=== PATIENT | male | born 1960 | race Caucasian/White ===

== ENCOUNTER 2021-04-07 09:34 | Outpatient (REF) | payer MEDICAID, SELFPAY ==
[2021-04-07 10:18] LABS: COVID-19 Test Negative (Negative); IDNOW Serial# 16C4AD1C
== END 2021-04-07 09:35 | disposition home or self-care (01) ==
LOC: HO.LAB 09:34
PROVIDERS: Visit Provider Internal Medicine
DX: Z20.822 Contact with and (suspected) exposure to COVID-19 (principal)
CPT/HCPCS: 36415; 87635; C9803

== ENCOUNTER 2021-07-30 08:46 | Outpatient (REF) | payer MEDICAID, SELFPAY ==
--- NOTE | ~2021-07-30 | CT_ITS ---
EXAMINATION: CT CHEST SCREENING CLINICAL INFORMATION: Current smoker. 50 pack-year history. COMPARISON: Previous chest CT scans most recent November 2019 TECHNIQUE: Multidetector volumetric CT imaging of the chest is performed without contrast using low dose technique. Additional 2D coronal and sagittal reformatted images and axial 3D maximum intensity projection (MIP) images are generated on the CT workstation. This CT examination was performed using dose optimization techniques as appropriate, variously including the following: *Automated exposure control *Adjustment of mA and/or kV according to patient size (this includes techniques or standardized protocols for targeted exams where dose is matched to indication/reason for exam; i.e. extremities or head) *Use of iterative reconstruction technique DLP: 76 mGy-cm FINDINGS: LUNGS: There is evidence of mild emphysema. The small pulmonary nodules are stable. Largest pulmonary nodule is a 4 mm peripheral or subpleural nodule along the minor fissure axial image 302 series 5. No new pulmonary nodule is seen. No endobronchial or endotracheal lesion is seen. MEDIASTINUM: The mediastinum is normal. There are small mediastinal lymph nodes that are stable. PLEURA: There is no pleural effusion. No pleural mass or thickening. AXILLA: No lymphadenopathy. UPPER ABDOMEN: Unremarkable OSSEOUS STRUCTURES: There are degenerative changes of the spine. CT/CT lung screening IMPRESSION: Mild emphysema. Stable small pulmonary nodules. ASSESSMENT: Lung-RADS category 2: Benign RECOMMENDATION: Annual low-dose chest CT follow-up recommended.
== END 2021-07-30 08:47 | disposition home or self-care (01) ==
LOC: HO.CT 08:46
PROVIDERS: PCP Family Medicine; Visit Provider Physician Assistant Medical
DX: R91.8 Other nonspecific abnormal finding of lung field (principal); F17.210 Nicotine dependence, cigarettes, uncomplicated
CPT/HCPCS: 71271

== ENCOUNTER 2021-12-25 08:32 | Outpatient (REF) | payer MEDICAID, SELFPAY ==
--- NOTE | ~2021-12-25 | XR_ITS ---
EXAMINATION: XR KNEE, RIGHT CLINICAL INFORMATION: Right knee pain. COMPARISON: None. TECHNIQUE: AP and lateral views of the right knee. FINDINGS: No acute fracture or dislocation. Tricompartmental joint space narrowing with patellofemoral compartment subchondral cystic change and tricompartmental marginal osteophytes. Anterior ossified loose body measuring 1.0 cm adjacent to the tibial plateau. Small joint effusion. XR/XR knee RT 2V IMPRESSION: Moderate tricompartmental osteoarthritis. Small joint effusion with an anterior loose body measuring up to 1.0 cm.
== END 2021-12-25 08:33 | disposition home or self-care (01) ==
LOC: HO.XRAY 08:32
PROVIDERS: Visit Provider Family Medicine
DX: M25.561 Pain in right knee (principal)
CPT/HCPCS: 73560

== ENCOUNTER 2022-08-14 09:31 | Outpatient (REF) | payer MEDICAID, SELFPAY ==
--- NOTE | ~2022-08-14 | CT_ITS ---
EXAMINATION: CT CHEST SCREENING CLINICAL INFORMATION: Nicotine dependence. 7-uguoq-vkx-day smoker for 50 years. COMPARISON: CT lung screening 07/30/2021 and 12/03/2019. TECHNIQUE: Multidetector volumetric CT imaging of the chest is performed without contrast using low dose technique. Additional 2D coronal and sagittal reformatted images and axial 3D maximum intensity projection (MIP) images are generated on the CT workstation. This CT examination was performed using dose optimization techniques as appropriate, variously including the following: *Automated exposure control *Adjustment of mA and/or kV according to patient size (this includes techniques or standardized protocols for targeted exams where dose is matched to indication/reason for exam; i.e. extremities or head) *Use of iterative reconstruction technique DLP: 61 mGy-cm. FINDINGS: LUNGS: The lungs are well expanded without any acute pneumonic consolidation. There are 1 diastolic calcified nodules scattered throughout the lungs. The largest calcified 4 mm nodule right upper lobe, axial image 247/5, stable. The largest noncalcified 4 mm nodule along the right major fissure axial image 313/5, stable. There are no new pulmonary nodules. MEDIASTINUM: The heart size and the great vessels are normal caliber. There are small shotty lymph nodes. Thyroid lobes are symmetrical. The central bronchial trachea are widely patent. CORONARY ARTERY CALCIFICATION: Mild coronary artery calcifications are present. PLEURA: There is no pleural effusion. No pleural mass or thickening. AXILLA: No lymphadenopathy. UPPER ABDOMEN: Visualized liver, spleen, pancreas and bilateral adrenal glands unremarkable. OSSEOUS STRUCTURES: No aggressive lytic or sclerotic process seen. There is mild ventral spondylosis mid dorsal spine. CT/CT lung screening IMPRESSION: 1. Stable calcified and noncalcified pulmonary nodules. No new nodules seen. 2. Low-dose annual CT chest. ASSESSMENT: Lung-RADS category 2: Benign. RECOMMENDATION: Low-dose annual CT chest.
== END 2022-08-14 09:32 | disposition home or self-care (01) ==
LOC: HO.CT 09:31
PROVIDERS: PCP Family Medicine; Visit Provider Physician Assistant Medical
DX: Z12.2 Encounter for screening for malignant neoplasm of respiratory organs (principal); F17.210 Nicotine dependence, cigarettes, uncomplicated
CPT/HCPCS: 71271

== ENCOUNTER 2022-12-16 12:20 | Outpatient (REF) | payer MEDICAID, SELFPAY ==
[2022-12-16 13:53] LABS: Microalbum/Creatinine Ratio Ur 98.8 ug/mg cr (<30)
[2022-12-18 12:19] LABS: HCV Log PCR <1.18 NOT DETECTED Log IU/mL (NOT DETECTED); HepC Viral Load <15 NOT DETECTED IU/mL (NOT DETECTED)
== END 2022-12-16 12:21 | disposition home or self-care (01) ==
LOC: HO.HHCL 12:20
PROVIDERS: Visit Provider Family Medicine
DX: E11.9 Type 2 diabetes mellitus without complications (principal); R76.8 Other specified abnormal immunological findings in serum
CPT/HCPCS: 36415; 82043; 82570; 87522

== ENCOUNTER 2023-01-10 15:14 | Outpatient (REF) | payer MEDICAID, SELFPAY | END 2023-01-10 15:15 | disposition home or self-care (01) | LOC: HO.US 15:14 | PROVIDERS: PCP Family Medicine; Visit Provider Family Medicine | DX: R22.42 Localized swelling, mass and lump, left lower limb (principal) | CPT/HCPCS: 93971 ==

== ENCOUNTER 2023-04-29 09:10 | Outpatient (REF) | payer MEDICAID, SELFPAY ==
[2023-04-29 13:09] LABS: Alanine Aminotransferase 23 U/L (0-40); Albumin Level 4.4 g/dL (3.5-5.0); Alkaline Phosphatase 117 U/L (39-117); Aspartate Amino Transferase 21 U/L (5-37); Bilirubin Direct 0.3 mg/dL (0.0-0.5); Bilirubin Total 0.8 mg/dL (0.0-1.0); Cholesterol 115 mg/dL (<200); HDL Cholesterol 43 mg/dL (>40); LDL Cholesterol Calculated 58 mg/dL (<100); Total Protein 7.2 g/dL (6.5-8.0); Triglycerides 74 mg/dL (<150)
== END 2023-04-29 09:11 | disposition home or self-care (01) ==
LOC: HO.HHCL 09:10
PROVIDERS: Visit Provider Family Medicine
DX: Z00.00 Encounter for general adult medical examination without abnormal findings (principal)
CPT/HCPCS: 36415; 80061; 80076

== ENCOUNTER 2023-05-15 11:37 | Outpatient (REF) | payer MEDICAID, SELFPAY ==
[2023-05-15 13:18] LABS: MANUAL DIFF FLAG NO
[2023-05-15 13:38] LABS: Basophils Percent Auto 0.5 % (0-2); Eosinophils Absolute Auto 0.1 X10*3/uL (0.0-0.4); Eosinophils Percent Auto 1.3 % (0-4); Hematocrit 43.8 % (42.0-52.0); Hemoglobin 15.1 g/dl (14.0-18.0); Imm Gran Abs Auto 0.02 X10*3/uL (0.00-0.03); Imm Gran Pct Auto 0.2 % (0.0-0.4); Lymphocytes Absolute Auto 2.3 X10*3/uL (1.2-4.9); Lymphocytes Percent Auto 26.3 % (20-40); Mean Corpuscular HGB Conc 34.5 g/dl (31.0-36.0); Mean Corpuscular Hemoglobin 28.6 pg (27.0-33.0); Mean Platelet Volume 11.6 fL (9.4-12.4); Monocytes Absolute Auto 0.5 X10*3/uL (0.1-1.2); Monocytes Percent Auto 5.7 % (2-11); Neutrophils Absolute Auto 5.8 x10*3/uL (2.0-8.3); Platelet Count 221 X10*3/uL (160-400); Red Blood Count 5.28 X10*6/uL (4.60-5.80); Red Cell Distribution Width 12.2 % (11.0-16.0); White Blood Count 8.8 X10*3/uL (4.8-10.8)
[2023-05-15 13:44] LABS: Estimated Average Glucose 355 mg/dL
[2023-05-15 14:01] LABS: Alanine Aminotransferase 24 U/L (0-40); Albumin Level 4.6 g/dL (3.5-5.0); Alkaline Phosphatase 172 U/L (39-117); Anion Gap 16 (12-20); Aspartate Amino Transferase 19 U/L (5-37); Bilirubin Total 0.6 mg/dL (0.0-1.0); Blood Urea Nitrogen 22 mg/dL (9-16); Calcium 10.2 mg/dL (8.4-10.2); Carbon Dioxide 27 mmol/L (22-29); Chloride 93 mmol/L (96-108); Estimated Glomerular Filt Rate 44; Glucose Random 545 mg/dL (60-115); Potassium 5.6 mmol/L (3.3-5.1); Sodium 130 mmol/L (135-145); Total Protein 7.4 g/dL (6.5-8.0)
[2023-05-15 14:06] LABS: PSA,Total (Free>4and<10) 1.33 ng/mL (0.00-4.00)
[2023-05-15 17:42] LABS: CT PCR NOT DETECTED (Not Detect.); NG PCR NOT DETECTED (Not Detect.)
== END 2023-05-15 11:38 | disposition home or self-care (01) ==
LOC: HO.HHCL 11:37
PROVIDERS: Visit Provider Family Medicine
DX: E11.65 Type 2 diabetes mellitus with hyperglycemia (principal); R35.89 Other polyuria
CPT/HCPCS: 0353U; 36415; 80053; 83036; 84153; 85025

== ENCOUNTER 2023-06-11 11:01 | Outpatient (REF) | payer MEDICAID, SELFPAY ==
[2023-06-11 14:22] LABS: Creatinine Urine 52.04 mg/dL; Microalbum/Creatinine Ratio Ur 547.6 ug/mg cr (<30)
[2023-06-11 14:23] LABS: Estimated Average Glucose 301 mg/dL; Hemoglobin A1c % 12.1 % (<6.0)
[2023-06-11 15:06] LABS: Alanine Aminotransferase 24 U/L (0-40); Albumin Level 4.5 g/dL (3.5-5.0); Alkaline Phosphatase 109 U/L (39-117); Anion Gap 10 (12-20); Aspartate Amino Transferase 21 U/L (5-37); Bilirubin Direct 0.2 mg/dL (0.0-0.5); Bilirubin Total 0.4 mg/dL (0.0-1.0); Blood Urea Nitrogen 20 mg/dL (9-16); Calcium 9.6 mg/dL (8.4-10.2); Carbon Dioxide 26 mmol/L (22-29); Chloride 109 mmol/L (96-108); Cholesterol 101 mg/dL (<200); Estimated Glomerular Filt Rate > 60; Glucose Random 132 mg/dL (60-115); HDL Cholesterol 41 mg/dL (>40); LDL Cholesterol Calculated 40 mg/dL (<100); Potassium 4.5 mmol/L (3.3-5.1); Sodium 140 mmol/L (135-145); Triglycerides 102 mg/dL (<150)
[2023-06-11 15:23] LABS: Vitamin D 25-OH Total 36.1 ng/mL (>30)
== END 2023-06-11 11:02 | disposition home or self-care (01) ==
LOC: HO.HHCL 11:01
PROVIDERS: Visit Provider Family Medicine
DX: E11.9 Type 2 diabetes mellitus without complications (principal); R74.8 Abnormal levels of other serum enzymes; Z79.4 Long term (current) use of insulin
CPT/HCPCS: 36415; 80048; 80061; 80076; 82043; 82306; 82570; 83036

== ENCOUNTER 2024-07-20 07:23 | Day surgery (SDC) | payer OTHER, SELFPAY ==
[2024-07-16 12:30] VITALS: BMI 29.4
[2024-07-20 07:53] VITALS: BMI 28.8
[2024-07-20] MEDS: Lactated Ringers 1,000 ML 80 ML IVCONT (07:58)
[2024-07-20 08:07] VITALS: BP 127/57; PULSE 51; RESP 18; TEMP 36.8; O2SAT 99
[2024-07-20 08:08] LABS: Glucose, Whole Blood 108 mg/dL (60-115)
--- NOTE | 2024-07-20 09:42 | MHC.SHP ---
Pre-Procedural Eval Section A - 24 Hr Update-Section A only Date of Service: 07/20/24 The patient is an INPATIENT: No Changes since office visit: No Cold of Flu in the past 2 weeks, No New Medical Problems, No Changes in Medication and No Patient answered all questions The patient has been examined within 24 hours of the surgical procedure. The History & Physical has been completed within 30 days and I have reviewed it.: Yes Section B - Complete if H&P > 30 days Chief Complaint: screening Allergies: Allergies Allergy/AdvReac Type Severity Reaction Status Date / Time No Known Allergies Allergy Verified 07/20/24 08:10 Plan I have reviewed the history and physical and performed a pertinent physical examination on my patient. No changes have occurred unless specified. Time Spent With Patient Time: Total time managing care of this patient today ____ minutes.
[2024-07-20 10:24] VITALS: BP 103/47; PULSE 55; RESP 16; TEMP 36.5; O2SAT 96
[2024-07-20 10:40] VITALS: BP 113/59; PULSE 59; RESP 18; TEMP 36.6; O2SAT 97
--- NOTE | 2024-07-20 10:55 | P.CONAN_ITS ---
HPI - Anesthesia Eval Consult details Narrative: 63 m for colon PMFSH Active Problems Active Problems: All Active Problems (Updated 07/16/24 @ 12:41 by Candie Huston RN) Personal history of nicotine dependence (Acute) Past Medical History Medical History Chronic renal insufficiency Diabetes COPD (chronic obstructive pulmonary disease) MARCOS (obstructive sleep apnea) History of hepatitis C Tubular adenoma of colon (~2019) Personal history of nicotine dependence Atrial fibrillation HTN (hypertension) Family History Family history of problems with anesthesia: No Surgical History Surgical History History of liver biopsy History of nasal surgery History of colonoscopy History of cardiac radiofrequency ablation History of Problems with Anesthesia: No Social History Social History (Updated 07/16/24 @ 12:29 by Candie Hustno RN) Household Members Other:: roommate Are you a primary manager managed care to a significant other at home: No Do you presently have visiting nurse or other home services: No Patient Tobacco Use Status: Former Tobacco user Tobacco use type: Cigarette Cigarettes Per Day: 30 Smoked in Last 30 Days: Yes Patient Interested in Nicotine Replacement: No Have you been hit, kicked, punched, or otherwise hurt by someone within the past year? If so, by whom?: No Are you DNR?: No Advance Directives: No Advance Directives Information Provided: Yes Poor oral hygiene: No Meds Allergies Allergy/AdvReac Type Severity Reaction Status Date / Time No Known Allergies Allergy Verified 07/20/24 08:10 Active Medications: Current Medications Lactated Ringer's (Lr) 1,000 mls @ 80 mls/hr IVCONT .[id number] [facility] Last Admin: 07/20/24 07:58 Dose: 80 mls/hr Home Medications ?Medication ?Instructions ?Recorded ?Confirmed ?Last Taken ?Type amlodipine 5 mg tablet 5 mg PO DAILY 07/16/24 07/16/24 07/20/24 History aspirin 81 mg tablet,delayed 81 mg PO DAILY 07/16/24 07/16/24 Unknown History release atorvastatin 40 mg tablet 40 mg PO BEDTIME 07/16/24 07/16/24 Unknown History empagliflozin 25 mg tablet 25 mg PO DAILY 07/16/24 07/16/24 07/17/24 History (Jardiance) lisinopril 40 mg tablet 40 mg PO DAILY 07/16/24 07/16/24 Unknown History metoprolol succinate 25 mg 25 mg PO DAILY 07/16/24 07/16/24 07/20/24 History tablet,extended release 24 hr Exam Height,Weight and Vital Signs: Height 6 ft 1 in Weight 218 lb 4.122 oz Last Vital Signs Temp 97.9 F 07/20/24 10:40 Pulse 59 07/20/24 10:40 Resp 18 07/20/24 10:40 BP 113/59 L 07/20/24 10:40 Pulse Ox 97 07/20/24 10:40 O2 Del Method Room Air 07/20/24 10:40 Pertinent Lab Results Pertinent Lab Results: Laboratory Tests 07/20/24 08:03 POC Glucose 108 Airway Mallampati Class: II TM Dist: >3cm Neck ROM: Full Loose/Missing/Broken Teeth: Yes Assessment and Plan Assessment Anesthesia Assessment: Anesthesia Plan Discussed and Chart Reviewed Final Anesthetic Review Family History of Problems with Anesthesia: No History of Problems with Anesthesia: No NPO: Yes ASA Class: II Final Preanesthetic Review: No Changes in Pt Med Stat, Meds/Allgs Chart Reviewed, Consent Obtained/Reviewed and Anes Risks/Benef Reviewed Patient Risk: Low Procedure Risk: Low Anesthetic Plan Anesthetic Plan: MAC: Disposition: Standard PACU
--- NOTE | 2024-07-20 12:20 | OP_ITS ---
DATE OF SERVICE: 07/20/2024 SURGEON: Luis M Neal MD INDICATIONS: Colon cancer screening. PREOPERATIVE DIAGNOSIS: POSTOPERATIVE DIAGNOSIS: PROCEDURE PERFORMED: Colonoscopy to the cecum with biopsy. ESTIMATED BLOOD LOSS: COMPLICATIONS: ANESTHESIA: Monitored anesthesia care. ASSISTANTS: SPECIMENS: DESCRIPTION OF PROCEDURE: History and physical performed. The risks and benefits of the procedure were explained to the patient. Informed consent was obtained. The patient was placed in the left lateral decubitus position. A digital rectal exam was performed and was found to be normal. The Olympus pediatric videocolonoscope was introduced into the rectum and advanced to the cecum. The cecum was identified by transillumination, palpation, and identification of ileocecal valve. Examination was performed. The scope was removed. He tolerated the procedure well and was returned to recovery area in stable condition. FINDINGS: The terminal ileum was not examined. The visualized colonic mucosa was normal. There was a large amount of liquid stool and undigested food material, which limited the sensitivity examination for detection of small polyps. This was washed and suctioned as best possible, but repeatedly clogged the scope, requiring changing of the suction tubing. A single polyp was identified in the rectum measuring less than 5 mm and removed with biopsy forceps. No other polyps were identified. Retroflexed examination showed some small internal hemorrhoids. IMPRESSION: Colon polyp. RECOMMENDATION: Follow up the biopsy results. MD ROBB Romero/PAIGE / [id number]
== END 2024-07-20 11:25 | disposition home or self-care (01) ==
PROVIDERS: PCP Family Medicine; Visit Provider Internal Medicine Gastroenterology
PROC: 0DJD8ZZ Inspection of Lower Intestinal Tract, Via Natural or Artificial Opening Endoscopic (ICD-10-PCS; CPT 45378; principal; 2024-07-20 09:10)
DX: Z12.11 Encounter for screening for malignant neoplasm of colon (principal); Z86.0101 Personal history of adenomatous and serrated colon polyps; K62.1 Rectal polyp; K64.8 Other hemorrhoids; E11.22 Type 2 diabetes mellitus with diabetic chronic kidney disease; I12.9 Hypertensive chronic kidney disease with stage 1 through stage 4 chronic kidney disease, or unspecified chronic kidney disease; N18.30 Chronic kidney disease, stage 3 unspecified; I48.91 Unspecified atrial fibrillation; G47.33 Obstructive sleep apnea (adult) (pediatric); J44.9 Chronic obstructive pulmonary disease, unspecified; Z79.82 Long term (current) use of aspirin; Z79.899 Other long term (current) drug therapy; F17.210 Nicotine dependence, cigarettes, uncomplicated; Z98.890 Other specified postprocedural states
CPT/HCPCS: 45380; 82947; 88305; J2003; J2704

== ENCOUNTER 2024-10-27 10:44 | Outpatient (REF) | payer OTHER, SELFPAY ==
--- OUTSIDE RECORDS SUMMARY | 2024-07-20 05:10 | XMS_ITS ---
Author Organization [facility] Address [address] [place] [address] Care Team Providers Care Network Operations Center Technician Name Role Phone Alina FOX, Alfreda Primary Care Provider Misty Luis M Collazo Jr Unavailable [phone] REASON FOR VISIT screening Encounters Encounter Location Date Provider Diagnosis [facility] [place] [address] [place], [place] [phone] 07/20/2024 Luis M Neal Jr Colon cancer [...] * YISSEL PINEDAHDOB: [birth year] (64 yo M)Acc No.[id number]:07/20/2024 COLON WITH MAC Patient: JELENA BRASWELL Provider: Eugene Neal MD :1960 A ge:63 Y S ex:Male Date:07/20/2024 Address:[address] [place], [place] [phone] Pcp:Alfreda Fuller MD Subjective: * Chief Complaints: [...] 07/20/2024 Generated for Shayna crowley/Edward/Ravindraitting on: 0 10/27/2024 11:46 AM EDT
--- NOTE | ~2024-10-27 | XR_ITS ---
EXAMINATION: XR KNEE, RIGHT CLINICAL INFORMATION: chornic right knee pain COMPARISON: None available. TECHNIQUE: Three views of the right knee. FINDINGS: There is low signal joint space narrowing. There are moderate sized tricompartmental marginal osteophytes, largest in the patellofemoral joint, fall bilateral compartment. No soft tissue desiccation is seen. Small amount joint fluid is visible in the suprapatellar pouch. XR/XR knee RT 3V IMPRESSION: There are osteophytes consistent with osteoarthritis but little to no joint space narrowing. There is a small volume of joint fluid. Electronically signed by: Bernardino Hardin MD 10/27/2024 12:23 PM EDT
--- OUTSIDE RECORDS SUMMARY | 2024-10-27 11:46 | XMS_ITS | Clinical Summary ---
Author Organization [facility] Address [address] [facility] [address] [place] [address] Phone Care Team Providers Care Motor And Generator Brush Maker Name Role Phone Alfreda Fuller MD Primary Care Provider U navailable Allergies No known active allergies Medications metoprolol succinate XL (TOPROL XL) 25 MG 24 hr tablet Take 25 mg by mouth 1 (one) time each day 06/14/2021 Active lisinopril (PRINIVIL,ZESTRI L) 30 MG tablet Take 30 mg by mouth 1 (one) time each day 05/31/2021 Active Aspirin Low Dose 81 MG EC tablet Take 81 mg by mouth 1 (one) time each day 05/31/2021 Active amLODIPine (NORVASC) 10 MG tablet Take 1 tablet (10 mg total) by mouth 1 (one) time each day 90 tablet 3 2021 Active atorvastatin (LIPITOR) 40 MG tablet Take 40 mg by mouth 1 (one) time each day Active Active Problems Problem Noted Date Diagnosed Date Chronic viral hepatitis C 03/25/2023 Stage 3a chronic kidney disease 07/03/2021 Proteinuria, not otherwise specified 07/03/2021 Hypertension 07/03/2021 Atrial fibrillation, not otherwise specified Type 2 diabetes mellitus without complication Resolved Problems Problem Noted Date Diagnosed Date Resolved Date Hepatitis C antibody detected 07/03/2021 03/25/2023 Family History Medical History Relation Comments Cancer Mother Relation Status Comments Mother Social History Tobacco Use Types Packs/Day Years Used Date Smoking Tobacco: Every Day Smokeless Tobacco: Current Alcohol Use Standard Drinks/Week Comments Never 0 (1 standard drink = 0.6 oz pur e alcohol) Sex and Gender Information Value Date Recorded Sex Assigned at Not on file Legal Sex Male 3:04 PM EDT Gender Identity Not on file Sexual Orientation Not on file Last Filed Vital Signs Vital Sign Reading Time Taken Comments Blood Pressure 148/60 03/27/2022 10:05 AM EST Pulse 60 03/27/2022 10:05 AM EST Temperature - - Respiratory Rate - - Oxygen Saturation 94% 03/27/2022 10:05 AM EST Inhaled Oxygen Concentration - - Weight 107 kg (236 lb 6.4 oz) 03/27/2022 10:05 A M EST Height 185.4 cm (6' 1 ) 03/27/2022 10:05 AM EST Body Mass Index 31.19 03/27/2022 10:05 AM EST Plan of Treatment Health Maintenance Due Date Last Done Comments Pneumococcal Vaccine: 50+ Ye ars (1 of 2 - PCV) 1977 Colorectal Cancer Screening: Annual FOBT 09/06/2007 Colorectal Cancer Screening: Colonoscopy 09/06/2007 Colorectal Cancer Screening: Sigmoidoscopy 09/06/2007 Diabetes: Hemoglobin A1C 07/03/2021 Diabetes: Ophthalmology Exam 07/03/2021 Diabetes: Pedal Pulse Checked 07/03/2021 Diabetes: Sensory Foot Exam 07/03/2021 Diabetes: Visual Foot Exam 07/03/2021 Influenza Vaccine (#1) 2024 Hepatitis B Vaccine Aged Out No longe r eligible based on patient's age to complete this topic Insurance Medicaid [place] Medicaid [place] Care Teams Motor And Generator Brush Maker Relationship Specialty Start Date End Date Alfreda Fuller MD PCP - General Family Medicine 06/20/21
--- OUTSIDE RECORDS SUMMARY | 2024-10-27 11:46 | XMS_ITS | Encounter Summary ---
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 [address] [place] [address] Kenna Sanchez MD [address] [place] [id number] Social History Tobacco Use Types Packs/Day Years Used Date Smoking Tobacco: Never Assessed Sex and Gender Information Value Date Recorded Sex Assigned at Not on file Legal Sex Male 10:35 PM EDT Gender Identity Not on file Sexual Orientation Not on file documented as of this encounter Plan of Treatment Not on file documented as of this encounter Visit Diagnoses Not on filedocumented in this encounter Care Teams Hydraulic Auto Jack Mechanic Relationship Specialty Start Date End Date Alfreda Fuller MD [address] [place] [id number] PCP - General 04/10/17 documented as of this encounter Additional Source Comments The information contained in this document represents components of the legal health record. It is not the complete legal health record.[facility]
== END 2024-10-27 10:45 | disposition home or self-care (01) ==
LOC: HO.HHCX 10:44
PROVIDERS: PCP Family Medicine; Visit Provider Family Medicine
DX: M25.561 Pain in right knee (principal); G89.29 Other chronic pain
CPT/HCPCS: 73562

== ENCOUNTER → 2024-10-27 10:57 | Outpatient (BNV) | payer OTHER, SELFPAY | PROVIDERS: PCP Family Medicine; Visit Provider Radiology Diagnostic Radiology | DX: M25.761 Osteophyte, right knee (principal) | CPT/HCPCS: 73562 ==

== ENCOUNTER 2024-10-28 08:12 | Outpatient (REF) | payer OTHER, SELFPAY ==
--- OUTSIDE RECORDS SUMMARY | 2024-07-20 05:10 | XMS_ITS ---
Author Organization [facility] Address [address] [place] [phone] Care Team Providers Care Equal Opportunity Assistant Name Role Phone Alina FOX, Alfreda Primary Care Provider Misty Luis M Collazo Jr Unavailable REASON FOR VISIT screening Encounters Encounter Location Date Provider Diagnosis [facility] [place] [address] [place], [place] [phone] 07/20/2024 Luis M Neal Jr Colon cancer [...] * YISSEL PINEDAHDOB: [birth year] (64 yo M)Acc No.[id number]:07/20/2024 COLON WITH MAC Patient: JELENA BRASWELL Provider: Eugene Neal MD :1960 A ge:63 Y S ex:Male Date:07/20/2024 Address:[address] [place], [place] [phone] Pcp:Alfreda Fuller MD Subjective: * Chief Complaints: [...] 0 07/20/2024 Generated for Shayna crowley/Edward/Ravindraitting on: 0 10/28/2024 08:20 AM EDT
--- OUTSIDE RECORDS SUMMARY | 2024-10-28 08:21 | XMS_ITS | Clinical Summary ---
Author Organization [employer] Address [address] [place] [address] Care Team Providers Care Logistics Technician Name Role Phone Alfreda Fuller MD Primary Care Provider [phone] Roxanne Pino PharmD Unavailable Luis M Neal MD Unavailable [phone] Nilesh Stout MD Unavailable [phone] Allergies No known active allergies Medications lisinopril 40 MG tabletIndicatio ns:Primary hypertension TAKE 1 TABLET BY MOUTH ONCE DAILY 90 tablet 3 11/11/19 24 Active empagliflozin (Jardiance) 25 MGIndications:T ype 2 diabetes mellitus without complication, without long-term current use of insulin ([facility]) Take 1 tablet (25 mg) by mouth Once per day. 90 tablet 3 11/27/19 24 Active glucose blood (FreeStyle Precision Nathanael Test) test stripIndication s:Type 2 diabetes mellitus without complication, without long-term current use of insulin ([facility]) Use to test blood sugar 2 times daily 100 each 12 11/27/19 24 025 Active amLODIPine (Norvasc) 5 MG tabletIndicatio ns:Primary hypertension Take 1 tab po daily, dose decreased 12/16/22 due to leg swelling 30 tablet 11 11/27/19 24 Active metoprolol succinate XL (Toprol-XL) 25 MG 24 hr tabletIndicatio ns:Atrial fibrillation and flutter (CMS/HCC),Prima ry hypertension TAKE 1 TABLET BY MOUTH EVERY DAY 90 tablet 3 06/02/19 25 Active aspirin (Aspirin Adult Low Strength) 81 MG EC tabletIndicatio ns:Atrial fibrillation and flutter (CMS/HCC) Take 1 tablet (81 mg) by mouth Once per day. 90 tablet 3 09/17/19 25 Active atorvastatin (Lipitor) 40 MG tabletIndicatio ns:Type 2 diabetes mellitus without complication, without long-term current use of insulin (CMS/HCC) TAKE 1 TABLET BY MOUTH AT BEDTIME 90 tablet 1 10/07/19 25 Active Blood Glucose Monitoring Suppl (eDabbaStyle [place] Lite) w/Device kit Use to test blood sugar bid dx dm 1 kit 05/15/19 24 025 Discontinued(Me d list cleanup (will not trigger notification to Pharmacy)) Continuous Blood Gluc Helicopter Dispatcher (FreeStyle Andre 2 [place]) device Scan sensor every 8 hours 1 each 05/21/19 24 025 Discontinued(Me d list cleanup (will not trigger notification to Pharmacy)) Continuous Blood Gluc Sensor (FreeStyle Andre 2 Sensor) misc Apply 1 sensor every 14 days 2 each 11 05/21/19 24 025 Discontinued(Me d list cleanup (will not trigger notification to Pharmacy)) atorvastatin (Lipitor) 40 MG tabletIndicatio ns:Type 2 diabetes mellitus without complication, without long-term current use of insulin (CMS/HCC) Take 1 tablet (40 mg) by mouth at bedtime. 90 tablet 3 08/05/19 24 025 Discontinued Active Problems Problem Noted Date Diagnosed Date Cardiac risk counseling 02/26/2024 Overview (02/26/2024): Calculated 02/26/24 The ASCVD Risk score (Elizabeth DK, et al., 2019) failed to calculate for the following reasons: The valid total cholesterol range is 130 to 320 mg/dL Lab Results Component Value Date LDLCHOLCAL 40 06/11/2023 LDLCHOLCAL 58 04/29/2023 -Tobacco cessation: discussed -Statin therapy: atorvastatin 40mg -Importance of moderate physical activity and nutrition interventions discussed. Other specified health status 11/06/2022 Overview (10/27/2024): -next comprehensive annual evaluation due after 06/10/2024 -eye care followed by Dr. Nilesh Stout of [facility], encouraged to schedule visit 11/06/2022 -dental home is [facility] -health care proxy given and filed 02/26/24 Assessment & Plan (10/27/2024 11:54 AM EDT): -next comprehensive annual evaluation due after 06/10/2024 -eye care followed by Dr. Nilesh Stout of [facility], encouraged to schedule visit 11/06/2022 -dental home is [facility] -health care proxy given and filed 02/26/24 Assessment & Plan (06/11/2023 10:42 AM EST): -next physical exam due after 06/10/2024 -eye care followed by Dr. Nilesh Stout of [facility], encouraged to schedule visit 11/06/2022 -dental home is [facility] Assessment & Plan (12/16/2022 11:34 AM EDT): -next physical exam due after 11/15/2022. -eye care followed by Dr. Nilesh Stout of [facility], encouraged to schedule visit 11/06/2022. -dental home is Assessment & Plan (11/06/2022 11:25 AM EDT): -next physical exam due after 11/15/2022. -eye care facilitated by Dr. Vera, encouraged to make an appointment 11/06/2022. -dental home is Tobacco use 05/16/2022 Overview (10/27/2024): -Cigg/day: 2 packs a day -Age started: 10 -Total years smokin -Pack year history: >50 Encouraged smoking cessation resources such as pharmacomtherapy, [facility] smoking cessation group, and [facility] smoking cessation clinic. Pt declined Collaborative Drug Therapy Managment Program with our HughDSUJIT referral 02/26/24. Discussed USPSTF recommends annual lung cancer screening with low dose CT in people who meet the following criteria: -ages 50 to 80 years. -have a 20 pack-year smoking history. -currently smoke cigarettes or quit within the past 15 years. LDCT: done 12/06/2019. -Stopped smoking on 03/03/2023. Started again. -Encouraged cessation 10/27/24, recommended LDCT but pt reports he needs to change his insurance . Assessment & Plan (10/27/2024 11:54 AM EDT): -Cigg/day: 2 packs a day -Age started: 10 -Total years smokin -Pack year history: >50 Encouraged smoking cessation resources such as pharmacomtherapy, [facility] smoking cessation group, and [facility] pharmacy smoking cessation clinic. Pt declined Collaborative Drug Therapy Managment Program with our SUJIT Hooks referral 02/26/24. Discussed USPSTF recommends annual lung cancer screening with low dose CT in people who meet the following criteria: -ages 50 to 80 years. -have a 20 pack-year smoking history. -currently smoke cigarettes or quit within the past 15 years. LDCT: done 12/06/2019. -Stopped smoking on 03/03/2023. Started again. -Encouraged cessation 10/27/24, recommended LDCT but pt reports he needs to change his insurance . Assessment & Plan (02/26/2024 9:41 AM EST): -Cigg/day: 2 packs a day -Age started: -Total years smoking: -Pack year history: Encouraged smoking cessation resources such as pharmacomtherapy, [facility] smoking cessation group, and [facility] pharmacy smoking cessation clinic. Pt declined Collaborative Drug Therapy Managment Program with our SUJIT Hooks referral 02/26/24. Discussed USPSTF recommends annual lung cancer screening with low dose CT in people who meet the following criteria: -ages 50 to 80 years. -have a 20 pack-year smoking history. -currently smoke cigarettes or quit within the past 15 years. LDCT: done 12/06/2019. -Stopped smoking on 03/03/2023. Started again. Assessment & Plan (06/11/2023 11:15 AM EST): Encouraged smoking cessation resources such as pharmacomtherapy, [facility] smoking [facility], and [facility] smoking cessation clinic Discussed USPSTF recommends annual lung cancer screening with low dose CT in people who meet the following criteria: -ages 50 to 80 years. -have a 20 pack-year smoking history. -currently smoke cigarettes or quit within the past 15 years. -Stopped smoking on 03/03/2023 Assessment & Plan (05/16/2022 11:22 AM EST): Pt quit for 6 days. He was commended on this. Chronic pain of right knee 05/14/2022 Overview (10/27/2024): Followed with Orthopedics in the past, was suppose to have surgery scheduled. Pt unsure why it fell through. -encouraged to call to get back in with Orthopedics. 02/26/24 -ordered x-ray 10/27/24 -encouraged to call to get back in with Orthopedics 10/27/24 -x ray 10/27/24 XR/XR knee RT 3V IMPRESSION: There are osteophytes consistent with osteoarthritis but little to no joint space narrowing.There is a small volume of joint fluid. Assessment & Plan (10/27/2024 1:48 PM EDT): Followed with Orthopedics in the past, was suppose to have surgery scheduled. Pt unsure why it fell through. -encouraged to call to get back in with Orthopedics. 02/26/24 -ordered x-ray 10/27/24 -encouraged to call to get back in with Orthopedics 10/27/24 Orders: XR Knee 3 Views Right; Future Referral to Orthopaedic Surgery; Future XR/XR knee RT 3V IMPRESSION: There are osteophytes consistent with osteoarthritis but little to no joint space narrowing. There is a small volume of joint fluid. Assessment & Plan (02/26/2024 9:42 AM EST): Followed with Orthopedics in the past, was suppose to have surgery scheduled. Pt unsure why it fell through. -encouraged to call to get back in with Orthopedics. 02/26/24 History of erectile dysfunction 05/14/2022 Chronic obstructive lung disease 04/18/2022 Overview (02/26/2024): PFTs 12/2017 1. Mild restrictive pulmonary disorder. 2. Mild obstructive airway disorder without any response to bronchodilator therapy. Tobacco cessation encouraged. Assessment & Plan (10/27/2024 11:54 AM EDT): PFTs 12/2017 1. Mild restrictive pulmonary disorder. 2. Mild obstructive airway disorder without any response to bronchodilator therapy. Tobacco cessation encouraged. Assessment & Plan (02/26/2024 9:34 AM EST): PFTs 12/2017 1. Mild restrictive pulmonary disorder. 2. Mild obstructive airway disorder without any response to bronchodilator therapy. Tobacco cessation encouraged. Assessment & Plan (12/16/2022 11:14 AM EDT): PFTs 12/2017 1. Mild restrictive pulmonary disorder. 2. Mild obstructive airway disorder without any response to bronchodilator therapy. Tobacco cessation encouraged. Microalbuminuria 04/18/2022 Overview (02/26/2024): Lab Results Component Value Date CREATININE 0.87 06/11/2023 EGFR >60 06/11/2023 MICROALBCREU 547.6 (H) 06/11/2023 MICROALBCREU 98.8 (H) 12/16/2022 LDLCHOLCAL 40 06/11/2023 Assessment & Plan (10/27/2024 11:54 AM EDT): Lab Results Component Value Date CREATININE 0.87 06/11/2023 EGFR >60 06/11/2023 MICROALBCREU 547.6 (H) 06/11/2023 MICROALBCREU 98.8 (H) 12/16/2022 LDLCHOLCAL Assessment & Plan (12/16/2022 11:13 AM EDT): MA/Cr 05/2021 464 ug/mgcr. DM is well controlled. -Continue Lisinopril 20 -Nephrology referral done 06/14/2021 Tubular adenoma 04/18/2022 Overview (07/22/2024): -Tubular adenoma on colonoscopy 10/[address] Neal -Referral place 06/11/2023 -Had appt. at [facility] on 10/13/23, pt reports he missed it due to insurance -Colonoscopy with Dr. Neal 07/20/24, hyperplastic polyp Assessment & Plan (02/26/2024 9:30 AM EST): -Tubular adenoma on colonoscopy 10/[address] Neal -Referral place 06/11/2023 -Had appt. at [facility] on 10/13/23, pt reports he missed it due to insurance -referred again to GI, Dr. Neal 02/26/24 Assessment & Plan (06/11/2023 10:24 AM EST): -Tubular adenoma on colonoscopy 10/[address] Neal -Referral place 06/11/2023 Assessment & Plan (12/16/2022 11:13 AM EDT): Tubular adenoma on colonoscopy 10/[address] Neal Hepatitis C antibody test positive 07/03/2021 Stage 3a chronic kidney disease 07/03/2021 Overview (02/26/2024): Lab Results Component Value Date CREATININE 0.87 06/11/2023 EGFR >60 06/11/2023 MICROALBCREU 547.6 (H) 06/11/2023 MICROALBCREU 98.8 (H) 12/16/2022 LDLCHOLCAL 40 06/11/2023 No show nephrology appt. last 03/2023. Assessment & Plan (10/27/2024 11:54 AM EDT): Lab Results Component Value Date CREATININE 0.87 06/11/2023 EGFR >60 06/11/2023 MICROALBCREU 547.6 (H) 06/11/2023 MICROALBCREU 98.8 (H) 12/16/2022 LDLCHOLCAL 40 06/11/2023 No show nephrology appt. last 03/2023. Assessment & Plan (02/26/2024 9:40 AM EST): Lab Results Component Value Date CREATININE 0.87 06/11/2023 EGFR >60 06/11/2023 MICROALBCREU 547.6 (H) 06/11/2023 MICROALBCREU 98.8 (H) 12/16/2022 LDLCHOLCAL 40 06/11/2023 No show nephrology appt. last 03/2023. Type 2 diabetes mellitus without complication Overview (10/27/2024): Diabetes is controlled from most 3 recent A1C's 09/16/23 , 01/06/24, and 02/26/24. Diabetes is followed with pharmacy [facility] by Dr. Roxanne Pino PharmD; has since graduated from program due to 2 consistent A1C within goal. -Has continuous glucose monitor and using the reader for finger sticking; not currently using sensor Lab Results Component Value Date HGBA1C 6.8 (A) 10/27/2024 HGBA1C 6.2 (A) 02/26/2024 HGBA1C 6.3 (A) 01/06/2024 Lab Results Component Value Date CREATININE 0.87 06/11/2023 EGFR >60 06/11/2023 MICROALBCREU 547.6 (H) 06/11/2023 MICROALBCREU 98.8 (H) 12/16/2022 LDLCHOLCAL 40 06/11/2023 -Du/Arb: Lisinopril 40mg -Statin therapy: Atorvaststain 40mg -Diabetic eye exam: followed by Dr. Nilesh Stout of [facility]. -Diabetic foot exam: Done 02/26/24 -Continue lifestyle modifications -Continue current medications - Lantus and metformin previously discontinued by [facility] due to BG within goal - Reports adherence to Jardiance 25mg once daily -ordered labs 10/27/24 Assessment & Plan (10/27/2024 11:54 AM EDT): Diabetes is controlled from most 3 recent A1C's 09/16/23 , 01/06/24, and 02/26/24. Diabetes is followed with pharmacy [facility] by Dr. Roxanne Pino PharmD; has since graduated from program due to 2 consistent A1C within goal. -Has continuous glucose monitor and using the reader for finger sticking; not currently using sensor Lab Results Component Value Date HGBA1C 6.8 (A) 10/27/2024 HGBA1C 6.2 (A) 02/26/2024 HGBA1C 6.3 (A) 01/06/2024 Lab Results Component Value Date CREATININE 0.87 06/11/2023 EGFR >60 06/11/2023 MICROALBCREU 547.6 (H) 06/11/2023 MICROALBCREU 98.8 (H) 12/16/2022 LDLCHOLCAL 40 06/11/2023 -Du/Arb: Lisinopril 40mg -Statin therapy: Atorvaststain 40mg -Diabetic eye exam: followed by Dr. Nilesh Stout of [facility]. -Diabetic foot exam: Done 02/26/24 -Continue lifestyle modifications -Continue current medications - Lantus and metformin previously discontinued by [facility] due to BG within goal - Reports adherence to Jardiance 25mg once daily -ordered labs 10/27/24 Orders: Albumin, Random Urine W/Creatinine; Future Hepatic Function Panel; Future Lipid Panel, Standard; Future Hemoglobin A1c; Future Basic Metabolic Panel; Future POCT glucose manually resulted POCT glycosylated hemoglobin (Hgb A1c) Assessment & Plan (02/26/2024 9:33 AM EST): Diabetes is controlled from most 3 recent A1C's 09/16/23 , 01/06/24, and 02/26/24. Diabetes is followed with pharmacy [facility] by Dr. Roxanne Pino PharmD; has since graduated from program due to 2 consistent A1C within goal. -Has continuous glucose monitor and using the reader for finger sticking; not currently using sensor Lab Results Component Value Date HGBA1C 6.2 (A) 02/26/2024 HGBA1C 6.3 (A) 01/06/2024 HGBA1C 6.0 09/16/2023 Lab Results Component Value Date CREATININE 0.87 06/11/2023 EGFR >60 06/11/2023 MICROALBCREU 547.6 (H) 06/11/2023 MICROALBCREU 98.8 (H) 12/16/2022 LDLCHOLCAL 40 06/11/2023 -Du/Arb: Lisinopril 40mg -Statin therapy: Atorvaststain 40mg -Diabetic eye exam: followed by Dr. Nilesh Stout of [facility]. -Diabetic foot exam: Done 02/26/24 -Continue lifestyle modifications -Continue current medications - Lantus and metformin previously discontinued by CD due to BG within goal - Reports adherence to Jardiance 25mg once daily Assessment & Plan (06/11/2023 10:39 AM EST): Diabetes is uncontrolled. - Lab Results Component Value Date HGBA1C 14.3 (A) 05/15/2023 HGBA1C 14.0 (H) 05/15/2023 HGBA1C 6.5 (A) 11/06/2022 -No results found for: POCA1C - Lab Results Component Value Date MICROALBUR 141.0 12/16/2022 CREATININE 1.60 (H) 05/15/2023 -Changes: -Du/Arb: Lisinopril 40mg -Statin therapy: Atorvaststain 40mg -Diabetic eye exam: followed by Dr. Nilesh Stout of [facility]. -Diabetic foot exam: Done 12/16/2022. -Continue lifestyle modifications - Has CGM 05/31 -Continue current medications - Lantus 10 Units started 05/15/23. Follow up with nursing. - Restart Metformin XR 750 mg once daily 06/11/23 - Wean off Lantus 06/11/23 Assessment & Plan (12/16/2022 11:32 AM EDT): Diabetes is controlled. - Lab Results Component Value Date HGBA1C 6.5 (A) 11/06/2022 -No results found for: POCA1C - Lab Results Component Value Date MICROALBUR 76.5 06/04/2021 CREATININE 1.12 05/06/2022 -Changes: -Du/Arb: Lisinopril 40mg -Statin therapy: Atorvastatin 40mg -Diabetic eye exam: followed by Dr. Nilesh Stout of [facility]. -Diabetic foot exam: Done 12/16/2022. -Continue lifestyle modifications -Continue current medications Assessment & Plan (11/06/2022 11:19 AM EDT): Diabetes is controlled. -No results found for: HGBA1C -No results found for: POCA1C - Lab Results Component Value Date MICROALBUR 76.5 06/04/2021 CREATININE 1.12 05/06/2022 -Changes: -Du/Arb: -Statin therapy: -Diabetic eye exam: -Diabetic foot exam: -Continue lifestyle modifications -Continue current medications Atrial fibrillation and flutter 10/02/2017 Overview (08/20/2023): Pt initially failed cardioversion. Started on amioradone and cardioverted again then had a reccurence a flutter. Amioradone was stopped and he was started on flecainide. He underwent right atrial flutter ablation on 09/2018. During stress test which was negative for ischemia he was noted to be back on atrial flutter. Eliquis was resumed. He then went under cryoablation and maintained normal sinus rhythm. CHADASVASc score: 2. Uses CPAP machine 2-4 hrs per night. -No longer taking Flecainide, Eliquis previously discontinued due to WILIAM socore 1, but now with diabetes it increased to 2. Pt does not want to start antigoagulation and is aware of the risk of stroke. -Continue ASA 81 mg qd -Continue Metoprolol ER 25mg daily -Last visit with horse race starter Dr. Bobbi Valerio MD [place] [facility] 08/18/23, echo ordered, follow up 6 months Assessment & Plan (10/27/2024 11:54 AM EDT): Pt initially failed cardioversion. Started on amioradone and cardioverted again then had a reccurence a flutter. Amioradone was stopped and he was started on flecainide. He underwent right atrial flutter ablation on 09/2018. During stress test which was negative for ischemia he was noted to be back on atrial flutter. Eliquis was resumed. He then went under cryoablation and maintained normal sinus rhythm. CHADASVASc score: 2. Uses CPAP machine 2-4 hrs per night. -No longer taking Flecainide, Eliquis previously discontinued due to WILIAM socore 1, but now with diabetes it increased to 2. Pt does not want to start antigoagulation and is aware of the risk of stroke. -Continue ASA 81 mg qd -Continue Metoprolol ER 25mg daily -Last visit with horse race starter Dr. Bobbi Valerio, MD [place] [facility] 08/18/23, echo ordered, follow up 6 months Assessment & Plan (02/26/2024 9:34 AM EST): Pt initially failed cardioversion. Started on amioradone and cardioverted again then had a reccurence a flutter. Amioradone was stopped and he was started on flecainide. He underwent right atrial flutter ablation on 09/2018. During stress test which was negative for ischemia he was noted to be back on atrial flutter. Eliquis was resumed. He then went under cryoablation and maintained normal sinus rhythm. CHADASVASc score: 2. Uses CPAP machine 2-4 hrs per night. -No longer taking Flecainide, Eliquis previously discontinued due to WILIAM socore 1, but now with diabetes it increased to 2. Pt does not want to start antigoagulation and is aware of the risk of stroke. -Continue ASA 81 mg qd -Continue Metoprolol ER 25mg daily -Last visit with horse race starter MD [place] [facility] 08/18/23, echo ordered, follow up 6 months Assessment & Plan (06/11/2023 10:30 AM EST): Pt initially failed cardioversion. Started on amioradone and cardioverted again then had a reccurence a flutter. Amioradone was stopped and he was started on flecainide. He underwent right atrial flutter ablation on 09/2018. During stress test which was negative for ischemia he was noted to be back on atrial flutter. Eliquis was resumed. He then went under cryoablation and maintained normal sinus rhythm. CHADASVASc score: 1. He does not have Diabetes as previously stated and uses his CPAP machine 2-4 hrs per night. -Eliquis discontinued 05/2019 due to CHADVASc score of 1. -Continue ASA 81 mg qd -No longer taking Flecainide -Continue Toprlol ER 35mg daily -Continue lisinopril 20 mg qd. -Last visit with horse race starter Dr. Michelle Villasenor MD 12/26/2020 Assessment & Plan (12/16/2022 11:14 AM EDT): Pt initially failed cardioversion. Started on amioradone and cardioverted again then had a reccurence a flutter. Amioradone was stopped and he was started on flecainide. He underwent right atrial flutter ablation on 09/2018. During stress test which was negative for ischemia he was noted to be back on atrial flutter. Eliquis was resumed. He then went under cryoablation and maintained normal sinus rhythm. CHADASVASc score: 1. He does not have Diabetes as previously stated and uses his CPAP machine 2-4 hrs per night. -Eliquis discontinued 05/2019 due to CHADVASc score of 1. -Continue ASA 81 mg qd -No longer taking Flecainide -Continue Toprlol ER 35mg daily -Continue lisinopril 20 mg qd. -Last visit with horse race starter Dr. Michelle Villasenor MD 12/26/2020 Hypertension 10/02/2017 Overview (02/26/2024): -Blood pressure is controlled -Continue lifestyle modifications -Continue current medications -Amlodipine decreased to 5mg 12/16/2022. Assessment & Plan (10/27/2024 11:54 AM EDT): -Blood pressure is controlled -Continue lifestyle modifications -Continue current medications -Amlodipine decreased to 5mg 12/16/2022. Assessment & Plan (02/26/2024 9:26 AM EST): -Blood pressure is controlled -Continue lifestyle modifications -Continue current medications -Amlodipine decreased to 5mg 12/16/2022. Assessment & Plan (06/11/2023 10:38 AM EST): -Blood pressure is not controlled -Continue lifestyle modifications -Continue current medications -Amlodipine decreased to 5mg 12/16/2022. -Advised pt to track BP at home and call back with recordings. Assessment & Plan (12/16/2022 11:39 AM EDT): -Blood pressure is at goal -Continue lifestyle modifications -Continue current medications -Amlodipine decreased to 5mg 12/16/2022. Assessment & Plan (11/06/2022 10:02 AM EDT): -Blood pressure is at goal -Continue lifestyle modifications -Continue current medications Obstructive sleep apnea syndrome 10/02/2017 Claudication 07/02/2013 Depressive disorder 07/02/2013 Joint pain 07/02/2013 Resolved Problems Problem Noted Date Diagnosed Date Resolved Date Localized swelling of left lower leg 11/06/2022 02/26/2024 Overview (11/06/2022): US ordered 11/06/2022 to rule out DVT. Assessment & Plan (12/16/2022 11:13 AM EDT): US ordered 11/06/2022 to rule out DVT. Assessment & Plan (11/06/2022 11:31 AM EDT): US ordered 11/06/2022 to rule out DVT. Irregular heart beat 05/16/2022 025 Assessment & Plan (05/16/2022 11:22 AM EST): Noted during pharmacy visit. A-symptomatic bracdycardia with medication. Proteinuria 07/03/2021 11/26/2023 Smoker 10/02/2017 11/26/2023 Encounters Date Type Department Care Team Description 10/27/2024 10:15 AM EDT Office Visit [facility] [address] [place] [id number] Alfreda Fuller MD Hypertension, unspecified type (Primary Dx); Atrial fibrillation and flutter (CMS/HCC); Type 2 diabetes mellitus without complication, without long-term current use of insulin (CMS/HCC); Stage 3a chronic kidney disease (CMS/HCC); Microalbuminuria; Chronic obstructive pulmonary disease, unspecified COPD type ([facility]); Chronic pain of right knee; Tobacco use; Overweight with body mass index (BMI) of 28 to 28.9 in adult; Dietary counseling; Exercise counseling; Other specified health status 10/27/2024 Travel 10/26/2024 Telephone [facility] [address] [place] [address] Alfreda Fuller MD CHART PREP 10/06/2024 Refill [facility] [address] [place] [address] Roxanne Pino, HughD Type 2 diabetes mellitus without complication, without long-term current use of insulin ([facility]) 09/16/2024 Refill [facility] [address], [place] [id number] Alfreda Fuller MD Atrial fibrillation and flutter ([facility]) from Last 3 Months Immunizations Immunization Administration Dates Next Due Hep A, Adult 10/05/2008,04/22/2007 Hep B, adult 10/06/2007,06/29/2007,04/22/2007 Influenza injectable quadriv alent IIV4 with preservative 12/16/2022,01/20/2018 Influenza injectable quadriv alent preservative free 04/05/2021,01/28/2019 Influenza, High Dose Seasona l, Preservative Free 01/06/2024 Influenza, IIV3, injectable 01/13/2018, 1 Pfizer Covid-19 Vaccine 12+ 06/11/2023 Pfizer Covid-19 Vaccine 12+ Bivalent 12/16/2022 Pneumococcal Conjugate PCV 20 12/16/2022 Pneumococcal Polysaccharide PPSV23 12/31/2006 RSV Bivalent 06/11/2023 TD (adult), 2 Lf tetanus tox oid, preservative free, adsorbed 10/19/2020 Tdap 05/18/2009 Zoster, Recombinant 12/20/2021,06/14/2021 Family History Medical History Relation Name Comments Ovarian cancer Mother Diabetes Sister Relation Name Status Comments Mother Sister Social History Tobacco Use Types Packs/Day Years Used Date Smoking Tobacco: Former Cigarettes Q uit: 03/03/2023 Tobacco Cessation:Counseling Given: Yes Depression Answer Date Recorded Patient Health Questionnaire-9 Score 0 02/26/2024 Patient Health Questionnaire-9 Score 0 02/26/2024 Last PHQ-9: Questionnaire Data Not on file 1 04/27/2023 Housing Stability Answer Date Recorded What is your housing situation today? I have messi mckeon 10/27/[address] you li ve. Do you have problems with any of the following? None of the above 10/27/2024 Food Insecurity Answer Date Recorded Within the past 12 months, y ou worried that your food would run out before you got money to buy more: Never True 10/27/2024 Within the past 12 months,th e food you bought just didn't last and you didn't have enough money to get more: Never True Transportation Answer Date Recorded In the past 12 months, has l ack of transportation kept you from medical appts, meetings, work or from getting things needed for daily living? No 10/27/2024 Utilities Answer Date Recorded In the past 12 months, has t he electric, gas, oil or water company threatened to shut off services in your home? No 10/27/2024 Depression Answer Date Recorded Patient Health Questionnaire-2 Score 0 02/26/2024 Internet Access Answer Date Recorded Internet Access Q1 No 10/27/2024 Internet Access Q2 I do not want or need it 10/06 Sex and Gender Information Value Date Recorded Sex Assigned at Male 02/04/2022 10:19 AM EDT Legal Sex Male 10:19 AM EDT Gender Identity Male 02/04/2022 10:19 AM EDT Sexual Orientation Straight 02/04/2022 10 :19 AM EDT Last Filed Vital Signs Vital Sign Reading Time Taken Comments Blood Pressure 138/64 10/27/2024 10:36 AM EDT Pulse 68 10/27/2024 10:22 AM EDT Temperature 37.2 C (98.9 F) 10/27/2024 10:22 AM EDT Respiratory Rate 20 10/27/2024 10:22 AM EDT Oxygen Saturation 98% 10/27/2024 10:22 AM EDT Inhaled Oxygen Concentration - - Weight 106 kg (233 lb 6.4 oz) 10/27/2024 10:22 A M EDT Height 185.4 cm (6' 1 ) 10/27/2024 10:22 AM EDT Body Mass Index 30.79 10/27/2024 10:22 AM EDT Plan of Treatment Health Maintenance Due Date Last Done Comments CT Colonography 1958 FIT DNA/Cologuard 1958 FIT 1958 FOBT 1960 Sigmoidoscopy 1960 Eye Exam 1968 Diabetes: Urine Protein Screening 06/10/2024 06/11/2023, 12/16/2022, 06/04/2021 Lipid Panel 06/10/2024 06/11/2023, 04/08, 01/24/2022, Additional history exists Influenza Vaccine (#1) 2024 , 12/16/2022, 04/05/2021, Additional history exists Alcohol/Substance Use Screening 02/25/2025 02/26/2024 COVID-19 Vaccine ( season) 2025 06/11/2023, 12/16/2022, 04/05/2021, Additional history exists Postponed from 12/07/2023 (Patient Refused) Depression Screening 02/25/2025 02/26/2024, 02/26/20 24 Diabetes: Foot Exam 02/25/2025 02/26/2024, 02/26/2024, 02/26/2024, Additional history exists Diabetes: Hemoglobin A1C 04/29/2025 025, 02/26/2024, 01/06/2024, Additional history exists SDOH Screening 10/27/2025 10/27/2024 Tobacco Screening 10/27/2025 10/27/2024 Colonoscopy 07/21/2029 07/21/2024, 10/17/2018 Colorectal Cancer Screening 07/21/2029 DTaP/Tdap/Td Vaccines (3 - Td or Tdap) 10/19/2030 10/19/2020, 05/18/2009 Hepatitis B Vaccines Completed 10/06/2007, 06/29/2007, 04/22/2007 Hepatitis A Vaccines Aged Out 10/05/2008, 04/22/19 08 No longer eligible based on patient's age to complete this topic Zoster Vaccines Completed 12/20/2021, 06/14/2021 Hepatitis C Screening Completed 12/16/2022, 022 Pneumococcal Vaccine: 50+ Years Completed 12/16/2022, 12/31/2006 RSV Patients and Patients Aged 60 years or older Completed 06/11/2023 HIB Vaccines Aged Out No longer eligi ble based on patient's age to complete this topic HPV Vaccines Aged Out No longer eligi ble based on patient's age to complete this topic IPV Vaccines Aged Out No longer eligi ble based on patient's age to complete this topic Meningococcal B Vaccine Aged Out No l onger eligible based on patient's age to complete this topic Meningococcal Vaccine Aged Out No evans hever eligible based on patient's age to complete this topic RSV under 20 months Aged Out No longe r eligible based on patient's age to complete this topic Rotavirus Vaccines Aged Out No longer eligible based on patient's age to complete this topic Goals Goal Patient Goal Type Associated Problems Recent Progress Patient-Stated? Author Blood Pressure < 140/90 Blood Pressure 138/64(2024 10:36 AM EDT) No Roxanne De La Cruz PharmD Hemoglobin A1c < 7 Result Component 6.8( 11:04 AM EDT) No Roxanne De La Cruz PharmD Procedures Procedure Name Priority Date/Time Associated Diagnosis Comments POCT GLUCOSE Routine 10/27/2024 11:05 AM EDT Type 2 diabetes mellitus without complication, without long-term current use of insulin ([facility]) POCT GLYCOSYLATED HEMOGLOBIN (HGB A1C) Routine 10/27/2024 11:04 AM EDT Type 2 diabetes mellitus without complication, without long-term current use of insulin ([facility]) XR KNEE 3 VIEWS RIGHT Routine 10/27/2024 10:29 AM EDT Chronic pain of right knee HM COLONOSCOPY Routine 07/21/2024 ALBUMIN, RANDOM URINE W/CREATININE Routine 06/11/2023 11:06 AM EST Type 2 diabetes mellitus without complication, with long-term current use of insulin ([facility]) LIPID PANEL, STANDARD Routine 06/11/2023 11:03 AM EST Type 2 diabetes mellitus without complication, with long-term current use of insulin (CMS/HCC) HEPATITIS C VIRAL RNA, QUANTITATIVE, REAL-TIME PCR Routine 12/16/2022 12:25 PM EDT from Last 3 Months or Most Recently Relevant to Health Maintenance Results * (ABNORMAL) POCT glucose manually resulted (10/27/2024 11:05 AM EDT) Glucose Blood, POC 221(A) 60 - 200 mg/dL QC Media Lot # [id number] Lot# Expiration Date 2318, Blood Capillary blood specimen / Unknown 10/27/2024 11:05 AM EDT us Alfreda Fuller MD POINT OF CARE TEST ENTER/E DIT ORDERABLES Final Result * (ABNORMAL) POCT glycosylated hemoglobin (Hgb A1c) (10/27/2024 11:04 AM EDT) Hemoglobin A1C 6.8(A) 4.0 - 5.7 % QC Media Lot # [id number] Lot# Expiration Date 3,,027 Blood Capillary blood specimen / Unknown 10/27/2024 11:04 AM EDT us Alfreda Fuller MD POINT OF CARE TEST ENTER/E DIT ORDERABLES Final Result * XR Knee 3 Views Right (10/27/2024 10:29 AM EDT) Anatomical Region Laterality Modality Lower Extremities, Knee Right Radiogra phic Imaging 10/27/2024 10:2 9 AM EDT Narrative 10/27/2024 12:25 PM EDT [address] [address] XRay Report Signed Patient: Donnie Hogan MR#: [id number] : 1960 Acct:[id number] Age/Sex: 64 / M ADM Date: 10/27/24 Loc: HO.CX Attending Dr: Alfreda Fuller MD Ordering Physician: Alfreda Fuller MD Date of Service: 10/27/24 Procedure(s): XR knee RT 3V Accession Number(s): [id number] cc: Alfreda Fuller MD EXAMINATION: XR KNEE, RIGHT CLINICAL INFORMATION: chornic right knee pain COMPARISON: None available. TECHNIQUE: Three views of the right knee. FINDINGS: There is low signal joint space narrowing. There are moderate sized tricompartmental marginal osteophytes, largest in the patellofemoral joint, fall bilateral compartment. No soft tissue desiccation is seen. Small amount joint fluid is visible in the suprapatellar pouch. XR/XR knee RT 3V IMPRESSION: There are osteophytes consistent with osteoarthritis but little to no joint space narrowing. There is a small volume of joint fluid. Electronically signed by: Bernardino Hardin MD 10/27/2024 12:23 PM EDT Dictated By: Bernardino Hardin MD Signed By: <Electronically signed by Bernardino Hardin MD in OV> 10/27/24 1223 DD/ 1029 TD/TT: 10/27/24 1035 Supervisor Paste Mixing: Procedure Note Donotuseinterpreter, Image - 10/27/2024 [place] [address] XRay Report Signed Patient: Donnie Hogan AMR#: [id number] : 9Acct:[id number] Age/Sex: 64 / MADM Date: 10/27/24 Loc: [facility] Attending Dr: Alfreda Fuller MD Ordering Physician: Alfreda Fuller MD Date of Service: 10/27/24 Procedure(s): XR knee RT 3V Accession Number(s): [id number] cc: Alfreda Fuller MD EXAMINATION: XR KNEE, RIGHT CLINICAL INFORMATION: chornic right knee pain COMPARISON: None available. TECHNIQUE: Three views of the right knee. FINDINGS: There is low signal joint space narrowing. There are moderate sized tricompartmental marginal osteophytes, largest in the patellofemoral joint, fall bilateral compartment. No soft tissue desiccation is seen. Small amount joint fluid is visible in the suprapatellar pouch. XR/XR knee RT 3V IMPRESSION: There are osteophytes consistent with osteoarthritis but little to no joint space narrowing. There is a small volume of joint fluid. Electronically signed by: Bernardino Hardin MD 10/27/2024 12:23 PM EDT RP Dictated By: Bernardino Hardin MD Signed By: <Electronically signed by Bernardino Hardin MD in OV> 10/27/24 1223 DD/ 1029 TD/TT: 10/27/24 1035 Supervisor Paste Mixing: Alfreda Fuller MD IMG XR PROCEDURES Final Re sult * (ABNORMAL) Colonoscopy (07/21/2024) Colonoscopy Abnormal( A) Normal Comment:popylp with Dr. Maciel bello Historical Provider HEALTH MAINTENANCE Final Result * (ABNORMAL) Albumin, Random Urine W/Creatinine (06/11/2023 11:06 AM EST) Creatinine, Urine 52.04 mg/dL [facility] Microalbumin Urine 285.0 mg/L H [facility] Microalbum Creatinine Ratio Ur 547.6(H) <30 ug/mg cr [facility] Comment:Albumin/Creatinine R atio Reference Ranges: Normal: < 30 ug/mg creatinine Microalbuminuria: 30 - 300 ug/mg creatinineClinical Albuminuria: > 300 ug/mg creatinine Urine 06/11/2023 11:0 6 AM EST 06/11/2023 12:56 PM EST Alfreda Fuller MD LAB URINE ORDERABLES Final Result [facility] [address] [place] [phone] * Lipid Panel, Standard (06/11/2023 11:03 AM EST) Triglycerides 102 <150 mg/dL [facility] Comment:Desirable Triglyceri de: less than 150 mg/dLBorderline High Triglyceride 150-199 mg/dLHigh Triglyceride: 200-499 mg/dLVery High Triglyceride: greater than or equal to 5OO mg/dL Cholesterol 101 <200 mg/dL [facility] Comment:Desirable Cholestero l: less than 200 mg/dLBorderline High Cholesterol: 200-239 mg/dLHigh Cholesterol: greater than 239 mg/dL LDL Cholesterol Calculated 40 <100 mg/dL [facility] Comment:Desirable LDL: less than 100 mg/dLNear Optimal/Above Optimal LDL: 110- 129 mg/dLBorderline High LDL: 130-159 mg/dLHigh LDL: 160-189 mg/dLVery High LDL: greater than or equal to 190 mg/dL HDL Cholesterol 41 >40 mg/dL [facility] Comment:Desirable HDL: great er than 40 mg/dL Note: This HDL assay may give artificially low results in patients with liver disease. Blood Venous blood specimen / Unknown 06/11/2023 11:03 AM EST 06/11/2023 1:07 PM EST us Alfreda Fuller MD LAB BLOOD ORDERABLES Final Result [facility] [address] [place] [phone] * Hepatitis C Viral RNA, Quantitative, Real-Time PCR (12/16/2022 12:25 PM EDT) Hepatitis C Viral Load <15 NOT DETECTED NOT DETECTED IU/mL [facility] HCV Log PCR <1.18 NOT DETECTED NOT DETECTED Log IU/mL [facility] Comment:This test was perfor med using Real-Time Polymerase ChainReaction.Reportable Range: 15 IU/mL to 100,000,000 IU/mL(1.18 Log IU/mL to 8.00 Log IU/mL).The analytical performance characteristics of thisassay have been determined by [employer].The modifications have not been cleared or approved bythe FDA. This assay has been validated pursuant to theCLIA regulations and is used for clinical purposes.For more information on this test, go to:http://education.Purch.Wheelz/faq/ETZ85t4(This link is being provided for informational/educational purposes only.)THIS TEST WAS PERFORMED AT:[facility] [place] [phone] BONNER MD 12/16/2022 12:2 5 PM EDT 12/16/2022 1:09 PM EDT Alfreda Fuller MD LAB BLOOD ORDERABLES Final Result [facility] [address] [place] [phone] [phone] from Last 3 Months or Most Recently Relevant to Health Maintenance Insurance [facility] DIRECT Advance Directives Documents on File Type Date Recorded Patient Horse Racing Analyst Expl anation Advance Directives and Living Will 02/26/2024 Health Care Proxy 02/26/24 Care Teams Logistics Technician Relationship Specialty Start Date End Date Ruth, MD Alfreda [address] [place] [address] PCP - General Family Medicine 04/07/18 Roxanne Pino, HughD [address] [place] [address] Pharmacist Internal Medicine 04/18/22 Luis M Neal MD [address] [place] [address] [address] [place] [phone] Gastroenterology 02/26/24 Nilesh Stout MD [address] [facility] [address] [place] [address] Ophthalmology 02/26/24 Bobbi Valerio MD [facility] 06/08/24
--- OUTSIDE RECORDS SUMMARY | 2024-10-28 08:21 | XMS_ITS | Clinical Summary ---
Author Organization [facility] Address [address] [facility] [address] [place] [address] Phone Care Team Providers Care Dry Pan Operator Name Role Phone Alfreda Fuller MD Primary [...] complete this topic Insurance Medicaid [place] Medicaid [place] Care Teams Dry Pan Operator Relationship Specialty Start Date End Date Alfreda Fuller MD PCP - General Family Medicine 06/20/21
--- OUTSIDE RECORDS SUMMARY | 2024-10-28 08:21 | XMS_ITS | Encounter Summary ---
Author Organization [facility] Address [address] [place] [address] Phone Care Team Providers Care Mercerizing Range Feeder Name Role Phone Alfreda Fuller MD Primary Care Provi jw Encounter Details Date Type Department Care Team ([facility] st Contact Info) Description 05/27/2017 Ancillary [facility] [address] [place] [address] Kenna Sanchez MD [address] [place] [phone] Social History Tobacco Use Types Packs/Day Years [...] on filedocumented in this encounter Care Teams Mercerizing Range Feeder Relationship Specialty Start Date End Date Alfreda Fuller MD [address] [place] [id number] PCP - General 04/10/17 documented as of this encounter Additional Source Comments The information contained in this document represents components of the legal health record. It is not the complete legal health record.[facility]
[2024-10-28 11:47] LABS: Hemoglobin A1C 195.2706 umol/L; Total Hemoglobin (HGBA1C) 4200.9653 umol/L
[2024-10-28 11:59] LABS: Microalbum/Creatinine Ratio Ur 148.7 ug/mg cr (<30)
[2024-10-28 12:01] LABS: Alanine Aminotransferase 27 U/L (0-40); Albumin Level 4.5 g/dL (3.5-5.0); Alkaline Phosphatase 91 U/L (39-117); Anion Gap 11 (12-20); Aspartate Amino Transferase 28 U/L (5-37); Blood Urea Nitrogen 23 mg/dL (9-16); Calcium 9.3 mg/dL (8.4-10.2); Carbon Dioxide 27 mmol/L (22-29); Chloride 108 mmol/L (96-108); Cholesterol 103 mg/dL (<200); Estimated Glomerular Filt Rate > 60; HDL Cholesterol 38 mg/dL (>40); Potassium 4.6 mmol/L (3.3-5.1); Sodium 141 mmol/L (135-145); Total Protein 6.9 g/dL (6.5-8.0); Triglycerides 87 mg/dL (<150)
== END 2024-10-28 08:13 | disposition home or self-care (01) ==
LOC: HO.HHCL 08:12
PROVIDERS: PCP Family Medicine; Visit Provider Family Medicine
DX: E11.9 Type 2 diabetes mellitus without complications (principal)
CPT/HCPCS: 36415; 80048; 80061; 80076; 82043; 82570; 83036

== ENCOUNTER 2024-12-29 08:47 | Outpatient (AMB) | payer OTHER, SELFPAY ==
--- OUTSIDE RECORDS SUMMARY | 2023-10-13 05:20 | XMS_ITS ---
Author Organization [facility] Address [address] [place] [phone] Care Team Providers Care Panel Installer Name Role Phone Alina FOX, Alfreda Primary Care Provider Misty Luis M Collazo Jr REASON FOR VISIT Patient presents today for a SCREENING COLON Encounters Encounter Location Date Provider Diagnosis [facility] [address] [place] [phone] 10/13/2023 Luis M Neal Jr Plan Of Treatment No Information Progress Notes * YISSEL PINEDAHDOB: [birth year] (64 yo M)Acc No.[id number]:10/13/2023 Progress Notes Patient: JELENA BRASWELL Provider: Eugene Neal MD :1960 A ge:63 Y S ex:Male Date:10/13/2023 Address:[address] [place], [place] [phone] Pcp:Alfreda Fuller MD Subjective: * Chief Complaints: [...] Pending * Provider: Eugene Neal MD Date: 10/13/2023 Generated for Printi ng/Faxing/eTransmitting on: 12/29/2024 10:00 AM EDT
--- OUTSIDE RECORDS SUMMARY | 2024-07-20 05:10 | XMS_ITS ---
Author Organization [facility] Address [address] [place] [phone] Care Team Providers Care Heavy Media Operator Name Role Phone Alina FOX, Alfreda Primary Care Provider Misty Luis M Collazo Jr Unavailable REASON FOR VISIT screening Encounters Encounter Location Date Provider Diagnosis [facility] [place] [address] [place], [place] [phone] 07/20/2024 Luis M Neal Jr Colon cancer [...] * YISSEL PINEDAHDOB: [birth year] (64 yo M)Acc No.[id number]:07/20/2024 COLON WITH MAC Patient: JELENA BRASWELL Provider: Eugene Neal MD :1960 A ge:63 Y S ex:Male Date:07/20/2024 Address:[address] [place], [place] [phone] Pcp:Alfreda Fuller MD Subjective: * Chief Complaints: [...] 07/20/2024 Generated for Shayna crowley/Edward/Ravindraitting on: 0 12/29/2024 10:00 AM EDT
--- NOTE | 2024-12-29 08:49 | MHC.OFFVIS ---
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 He describes his pain as sharp and severe in nature. His pain has gotten worse over the last 10 years in spite of continued non operative treatments. He has had cortisone injections in the past. The most recent injection gave him no relief. He has not had a viscosupplementation injection. He has failed the last 3 months of conservative treatment which has included Tylenol, anti-inflammatory medicines, a home exercise program and physical therapy exercises. At this point the patient's right knee pain is interfering with his activities of daily living and his ability to sleep well through the night. The patient wishes to hold off on surgery if at all possible. Know: No HX: No Allergies No Known Allergies Allergy (Verified 12/29/24 08:53) Medication List - Last Reconciled 12/29/24 by Jose L Rivers MD amlodipine 5 mg PO DAILY aspirin 81 mg PO DAILY atorvastatin 40 mg PO BEDTIME empagliflozin (Jardiance) 25 mg PO DAILY lisinopril 40 mg PO DAILY metoprolol succinate ER 25 mg PO DAILY [facility] Medical History (Updated 12/29/24 @ 09:16 by Jose L Rivers MD) Chronic renal insufficiency Diabetes COPD (chronic obstructive pulmonary disease) MARCOS (obstructive sleep apnea) History of hepatitis C Tubular adenoma of colon (~2019) Personal history of nicotine dependence Atrial fibrillation HTN (hypertension) Surgical History History of liver biopsy History of nasal surgery History of colonoscopy History of cardiac radiofrequency ablation Social History (Updated 07/16/24 @ 12:29 by Candie Huston RN) Household Members Other:: roommate Are you a primary women's health care nurse practitioner to a significant other at home: No Do you presently have visiting nurse or other home services: No Patient Tobacco Use Status: Former Tobacco user Tobacco use type: Cigarette Cigarettes Per Day: 30 Physical Exam Vital Signs: BMI result Body Mass Index 32.5 Const Other: Well-nourished well-developed very friendly male awake alert and oriented x3 in no acute distress Extrem Other: Right knee examination shows a minimal effusion, palpable crepitus with range of motion, pain with range of motion, no instability Results Reviewed Results Reviewed: X-rays of the patient's right knee show moderate to severe joint space narrowing most significant in the patellofemoral joint, subchondral sclerosis, no acute bony abnormalities Assessment & Plan Assessment & Plan (1) Osteoarthritis of right knee: Code(s): M17.11 - Unilateral primary osteoarthritis, right knee Category: Medical Plan Mr. Hogan presents with progressively worsening right knee pain due to osteoarthritis. I had a lengthy discussion with the patient regarding the treatment options. He wishes to hold off on surgery if at all possible. I agree with this plan. I will see if the patient's insurance company will cover a viscosupplementation injection, such as Durolane, for his right knee. I will see him back once the injection is available. Feel free to call me at any time should questions regarding his orthopedic management arise. Thank you very much for asking me to see this very friendly patient. I spent 22 minutes in reviewing the patient's records and imaging studies, seeing the patient and documenting in the medical record. Coding Level of Care Code New Pt Level 3 (00227) Complex EM visit Add On G2211 Diagnoses Osteoarthritis of right knee M17.11
[2024-12-29 08:53] VITALS: BMI 32.5
--- OUTSIDE RECORDS SUMMARY | 2024-12-29 10:00 | XMS_ITS | Encounter Summary ---
Author Organization [facility] Address [address] [place] [address] Phone Care Team Providers Care Child Development Professor Name Role Phone Alfreda Fuller MD Primary Care Provi jw Encounter Details Date Type Department Care Team ([facility] st Contact Info) Description 05/27/2017 [facility] [address] [place] [address] Kenna Sanchez MD [address] [place] [id number] Social History Tobacco Use Types Packs/Day Years [...] on filedocumented in this encounter Care Teams Child Development Professor Relationship Specialty Start Date End Date Alfreda Fuller MD [address] [place] [id number] PCP - General 04/10/17 documented as of this encounter Additional Source Comments The information contained in this document represents components of the legal health record. It is not the complete legal health record.[facility]
--- OUTSIDE RECORDS SUMMARY | 2024-12-29 10:01 | XMS_ITS | Clinical Summary ---
Author Organization [facility] Address [address] [facility] [address] [place] [address] Phone Care Team Providers Care Exterminator Helper Name Role Phone Alfreda Fuller MD Primary [...] complete this topic Insurance Medicaid [place] Medicaid [place] Care Teams Exterminator Helper Relationship Specialty Start Date End Date Alfreda Fuller MD PCP - General Family Medicine 06/20/21
--- OUTSIDE RECORDS SUMMARY | 2024-12-29 10:01 | XMS_ITS | Encounter Summary ---
Author Organization [facility] Address [address] [facility] [address] [place] [address] Care Team Providers Care Manager Development Name Role Phone Alfreda Fuller MD Primary Care Provider [phone]- [phone] Roxanne Pino PharmD Unavailable Luis M Neal MD Unavailable [phone] Nilesh Stout MD Unavailable [phone] Encounter Details Date Type Department Care Team (Late st Contact Info) Description 04/15/[address] [facility] [address] [place] [address] Halie Tay LPN Social History Tobacco Use Types Packs/Day Years Used Date Smoking Tobacco: Never Assessed Sex and Gender Information Value Date Recorded Sex Assigned at Male 02/04/2022 10:19 AM EDT Legal Sex Male 10:19 AM EDT Gender Identity Male 02/04/2022 10:19 AM EDT Sexual Orientation Straight 02/04/2022 10 :19 AM EDT COVID-19 Exposure Response Date Recorded In the last 10 days, have yo u been in contact with someone who was confirmed or suspected to have Coronavirus/COVID-19? Unable to assess 04/18/2022 10:52 AM EST documented as of this encounter Plan of Treatment Not on file documented as of this encounter Goals Goal Patient Goal Type Associated Problems Recent Progress Patient-Stated? Author Blood Pressure < 140/90 Blood Pressure 138/64( 025 10:36 AM EDT) No Piers-Gambl e, Roxanne, PharmD documented as of this encounter Visit Diagnoses Not on filedocumented in this encounter Care Teams Manager Development Relationship Specialty Start Date End Date Alfreda Fuller MD [address] [place] [address] PCP - General Family Medicine 04/07/18 Roxanne Pino PharmD [address] [place] [address] Pharmacist Internal Medicine 04/18/22 Luis M Neal MD [address] [place] [address] [address] [place] [phone] Gastroenterology 02/26/24 Nilesh Stout MD [address] [facility] [address] [place] [address] Ophthalmology 02/26/24 Bobbi Valerio MD [facility] Cardiology 06/08/24 documented as of this encounter
--- OUTSIDE RECORDS SUMMARY | 2024-12-29 10:01 | XMS_ITS | Clinical Summary ---
Author Organization [facility] Address [address] [place] [address] [place] [phone] Phone Care Team Providers Care Therapeutic Dietitian Name Role Phone Alina, Alfreda Almonte MD Primary Care Provi jw Social History Tobacco Use Types Packs/Day Years Used Date Smoking Tobacco: Never Assessed Education Answer Date Recorded Are you interested in more education? Not on smita e 08/02/2022 Are you concerned about learning? Not on file 08/02/2022 No 08/02/2022 No 08/02/2022 Sex and Gender Information Value Date Recorded Sex Assigned at Not on file Legal Sex Male 10:35 PM EDT Gender Identity Not on file Sexual Orientation Not on file Plan of Treatment Not on file Medical Devices Not on file Insurance M[employer] [place] [id number] [facility] [employer] FAM[facility] Care Teams Therapeutic Dietitian Relationship Specialty Start Date End Date Alina, Alfreda Almonte MD [address] [place] [phone] PCP - General 04/10/17 Additional Source Comments The information contained in this document represents components of the legal health record. It is not the complete legal health record.[facility]
--- OUTSIDE RECORDS SUMMARY | 2024-12-29 10:01 | XMS_ITS | Encounter Summary ---
Author Organization [employer] Address [address] [facility] 7t [place] [address] Care Team Providers Care Classics Teacher Name Role Phone Alfreda Fuller MD Primary Care Provider [phone] Roxanne Pino PharmD Unavailable Luis M Neal MD Unavailable [phone] Nilesh Stout MD Unavailable [phone] Encounter Details Date Type Department Care Team (Late st Contact Info) Description 03/22/[address] [facility] [address] [place] [address] Halie Tay LPN Social History Tobacco Use Types Packs/Day Years Used Date Smoking Tobacco: Never Assessed Sex and Gender Information Value Date Recorded Sex Assigned at Male 02/04/2022 10:19 AM EDT Legal Sex Male 10:19 AM EDT Gender Identity Male 02/04/2022 10:19 AM EDT Sexual Orientation Straight 02/04/2022 10 :19 AM EDT documented as of this encounter Plan of Treatment Not on file documented as of this encounter Visit Diagnoses Not on filedocumented in this encounter Care Teams Classics Teacher Relationship Specialty Start Date End Date Alfreda Fuller MD [address] [place], [place] [phone] PCP - General Family Medicine 04/07/18 Roxanne Pino, PharmD [address] [place] [address] [phone] Pharmacist Internal Medicine 04/18/22 Luis M Neal MD [address] [place] [address] [address] [place] [phone] Gastroenterology 02/26/24 Nilesh Stout MD [address] [facility] [address] [facility] [address] [place] [address] Ophthalmology 02/26/24 Bobbi Valerio MD [facility] Cardiology 06/08/24 documented as of this encounter
--- OUTSIDE RECORDS SUMMARY | 2024-12-29 10:01 | XMS_ITS | Encounter Summary ---
Author Organization [facility] Address [address] [facility] 7t [place] [address] Care Team Providers Care Supervisor Aircraft Cleaning Name Role Phone Alfreda Fuller MD Primary Care Provider Roxanne Pino PharmD Unavailable Luis M Neal MD Unavailable Nilesh Stout MD Unavailable [phone] Reason for Visit * Reason Comments Med Refill Encounter Details Date Type Department Care Team (Late st Contact Info) Description 03/22/2022 Refill [facility] [address] [place] [address] Roxanne Pino, PharmD [address] [place] [address] Primary hypertension (Primary Dx) Social History Tobacco Use Types Packs/Day Years Used Date Smoking Tobacco: Never Assessed Sex and Gender Information Value Date Recorded Sex Assigned at Male 02/04/2022 10:19 AM EDT Legal Sex Male 10:19 AM EDT Gender Identity Male 02/04/2022 10:19 AM EDT Sexual Orientation Straight 02/04/2022 10 :19 AM EDT documented as of this encounter Miscellaneous Notes * Telephone Encounter - Roxanne Pino PharmD - 03/25/2022 3:51 PM EST Approving, but needs appt for additional refills. documented in this encounter Plan of Treatment Not on file documented as of this encounter Visit Diagnoses Diagnosis Primary hypertension- Primary Unspecified essential hypertension documented in this encounter Care Teams Supervisor Aircraft Cleaning Relationship Specialty Start Date End Date Alfreda Fuller MD [address] [place] [address] PCP - General Family Medicine 04/07/18 Roxanne Pino, Neva [address] [place] [address] Pharmacist Internal Medicine 04/18/22 Luis M Neal MD [address] [place] [address] [address] [place] [phone] Gastroenterology 02/26/24 Nilesh Stout MD 2 [facility] [address] [place] [address] Ophthalmology 02/26/24 Bobbi Valerio MD [facility] Cardiology 06/08/24 documented as of this encounter
--- OUTSIDE RECORDS SUMMARY | 2024-12-29 10:01 | XMS_ITS | Clinical Summary ---
Author Organization [employer] Address [address] [facility] 7t [place] [address] Care Team Providers Care Environmental Research Project Manager Name Role Phone Alfreda Fuller MD Primary Care Provider [phone] Roxanne Pino PharmD Unavailable Luis M Neal MD Unavailable [phone] Nilesh Stout MD Unavailable [phone] Allergies No known active allergies Medications metoprolol succinate XL (Toprol-XL) 25 MG 24 hr tabletIndication s:Atrial fibrillation and flutter (CMS/HCC),Primar y hypertension TAKE 1 TABLET BY MOUTH EVERY DAY 90 tablet 3 06/02/19 25 Active aspirin (Aspirin Adult Low Strength) 81 MG EC tabletIndication s:Atrial fibrillation and flutter (CMS/HCC) Take 1 tablet (81 mg) by mouth Once per day. 90 tablet 3 09/17/19 25 Active atorvastatin (Lipitor) 40 MG tabletIndication s:Type 2 diabetes mellitus without complication, without long-term current use of insulin (CMS/HCC) TAKE 1 TABLET BY MOUTH AT BEDTIME 90 tablet 1 10/07/19 25 Active lisinopril 40 MG tabletIndication s:Primary hypertension TAKE 1 TABLET BY MOUTH EVERY DAY 90 tablet 3 11/10/19 25 Active Jardiance 25 MGIndications:Ty pe 2 diabetes mellitus without complication, without long-term current use of insulin (CMS/HCC) TAKE 1 TABLET BY MOUTH ONCE DAILY 90 tablet 3 11/18/19 25 Active amLODIPine (Norvasc) 5 MG tabletIndication s:Primary hypertension TAKE 1 TABLET BY MOUTH EVERY DAY 30 tablet 11 12/15/19 25 Active amLODIPine (Norvasc) 5 MG tabletIndication s:Primary hypertension Take 1 tab po daily, dose decreased 12/16/22 due to leg swelling 30 tablet 11 11/27/19 24 025 Discontinued Active Problems Problem Noted Date Diagnosed Date Cardiac risk counseling 02/26/2024 Overview (02/26/2024): Calculated 02/26/24 The ASCVD Risk score (Elizabeth MONREAL, et al., 2019) failed to calculate for [...] care followed by Dr. Nilesh Stout of [facility], encouraged to schedule visit 11/06/2022 -dental home is [facility] -health care proxy given and filed 02/26/24 Assessment & Plan (10/27/2024 11:54 AM EDT): -next comprehensive annual evaluation due after 06/10/2024 -eye care followed by Dr. Nilesh Stout of [facility], encouraged to schedule visit 11/06/2022 -dental home is [facility] -health care proxy given and filed 02/26/24 Assessment & Plan (06/11/2023 10:42 AM EST): -next physical exam due after 06/10/2024 -eye care followed by Dr. Nilesh Stout of [facility], encouraged to schedule visit 11/06/2022 -dental home is [facility] Assessment & Plan (12/16/2022 11:34 AM EDT): -next physical exam due after 11/15/2022. -eye care followed by Dr. Nilesh Stout of [facility], encouraged to schedule visit 11/06/2022. -dental home [...] as pharmacomtherapy, [facility] smoking cessation group, and [facility] pharmacy smoking cessation clinic. Pt declined Collaborative [...] as pharmacomtherapy, [facility] smoking cessation group, and [facility] pharmacy smoking cessation clinic. Pt declined Collaborative [...] as pharmacomtherapy, [facility] smoking cessation group, and [facility] pharmacy smoking cessation clinic. Pt declined Collaborative Drug Therapy Managment Program with our PharmD, SUJIT referral 02/26/24. Discussed USPSTF recommends annual lung [...] as pharmacomtherapy, [facility] smoking cessation group, and [facility] pharmacy smoking cessation clinic Discussed USPSTF recommends [...] Neal -Referral place 06/11/2023 -Had appt. at [facility] on 10/13/23, pt reports he missed it due to insurance -Colonoscopy with Dr. Neal 07/20/24, hyperplastic polyp Assessment & Plan (02/26/2024 9:30 AM EST): -Tubular adenoma on colonoscopy 10/[address] Neal -Referral place 06/11/2023 -Had appt. at [facility] on 10/13/23, pt reports he missed it [...] exam: followed by Dr. Nilesh Stout of [facility]. -Diabetic foot exam: Done 02/26/24 -Continue lifestyle [...] exam: followed by Dr. Nilesh Stout of [facility]. -Diabetic foot exam: Done 02/26/24 -Continue lifestyle [...] with pharmacy CDTM by Dr. Roxanne Pino PharmNoa; has since graduated from program due to [...] exam: followed by Dr. Nilesh Stout of [facility]. -Diabetic foot exam: Done 02/26/24 -Continue lifestyle [...] exam: followed by Dr. Nilesh Stout of [facility]. -Diabetic foot exam: Done 12/16/2022. -Continue lifestyle [...] exam: followed by Dr. Nilesh Stout of [facility]. -Diabetic foot exam: Done 12/16/2022. -Continue lifestyle [...] Metoprolol ER 25mg daily -Last visit with aquatic laborer MD [facility] 08/18/23, echo ordered, follow [...] Metoprolol ER 25mg daily -Last visit with aquatic laborer MD [facility] 08/18/23, echo ordered, follow [...] Metoprolol ER 25mg daily -Last visit with aquatic laborer Dr. Bobbi Valerio MD [facility] 08/18/23, echo ordered, follow [...] lisinopril 20 mg qd. -Last visit with aquatic laborer Dr. Michelle Villasenor MD 12/26/2020 Assessment & [...] lisinopril 20 mg qd. -Last visit with aquatic laborer Dr. Michelle Villasenor MD 12/26/2020 Hypertension 10/02/2017 [...] Encounters Date Type Department Care Team Description 12/13/[address] [facility] [address] [place] [address] Alfreda Fuller MD Primary hypertension 11/16/[address] [facility] [address] [place] [address] Alfreda Fuller MD Type 2 diabetes mellitus without complication, without long-term current use of insulin ([facility]) 11/07/[address] [facility] [address] [place] [address] Alfreda Fuller MD Primary hypertension; Atrial fibrillation and flutter (CMS/HCC) 10/27/2024 10:15 AM EDT Office Visit [facility] [address] [facility] [place] [address] Alfreda Fuller MD Hypertension, unspecified type (Primary Dx); Atrial fibrillation and flutter (CMS/HCC); Type 2 diabetes mellitus without complication, without long-term current use of insulin (CMS/HCC); Stage 3a chronic kidney disease (CMS/HCC); Microalbuminuria; Chronic obstructive pulmonary disease, unspecified COPD type (CMS/HCC); Chronic pain of right knee; Tobacco use; Overweight with body mass index (BMI) of 28 to 28.9 in adult; Dietary counseling; Exercise counseling; Other specified health status 10/27/2024 Travel 10/26/[address] [facility] [address] [facility] [place] [address] Alfreda Fuller MD CHART PREP 10/06/[address] [facility] [address] [place] [address] Roxanne Pino, PharmD Type 2 diabetes mellitus without complication, without long-term current use of insulin ([facility]) from Last 3 Months Immunizations Immunization Administration [...] FOBT 1960 Sigmoidoscopy 1960 Eye Exam 1968 COVID-19 Vaccine ( season) 2024 06/11/2023, 12/16/2022, 04/05/2021, Additional history exists Influenza Vaccine (#1) 2024 , 12/16/2022, 04/05/2021, Additional history exists Alcohol/Substance Use Screening 02/25/2025 02/26/2024 Depression Screening 02/25/2025 02/26/2024, 02/26/20 24 Diabetes: Foot Exam 02/25/2025 02/26/2024, 02/26/2024, 02/26/2024, Additional history exists Diabetes: Hemoglobin A1C 04/30/2025 025, 10/27/2024, 02/26/2024, Additional history exists SDOH Screening 10/27/2025 10/27/2024 Tobacco Screening 10/27/2025 10/27/2024 Diabetes: Urine Protein Screening 10/28/2025 10/28/2024, 06/11/2023, 12/16/2022, Additional history exists Lipid Panel 10/28/2025 10/28/2024, 03/0 09/2023, 04/29/2023, Additional history exists Colonoscopy 07/21/2029 07/21/2024, 10/17/2018 Colorectal Cancer Screening [...] PharmD Hemoglobin A1c < 7 Result Component 6.4( 8:20 AM EDT) No Roxanne De La Cruz PharmD Procedures Procedure Name Priority Date/Time Associated Diagnosis Comments BASIC METABOLIC PANEL Routine 10/28/2024 8:20 AM EDT Type 2 diabetes mellitus without complication, without long-term current use of insulin (CMS/HCC) HEMOGLOBIN A1C Routine 10/28/2024 8:20 AM EDT Type 2 diabetes mellitus without complication, without long-term current use of insulin (CMS/HCC) LIPID PANEL, STANDARD Routine 10/28/2024 8:20 AM EDT Type 2 diabetes mellitus without complication, without long-term current use of insulin (CMS/HCC) HEPATIC FUNCTION PANEL Routine 10/28/2024 8:20 AM EDT Type 2 diabetes mellitus without complication, without long-term current use of insulin (CMS/HCC) ALBUMIN, RANDOM URINE W/CREATININE Routine 10/28/2024 8:20 AM EDT Type 2 diabetes mellitus without complication, without long-term current use of insulin (CMS/HCC) POCT GLUCOSE Routine 10/27/2024 11:05 AM EDT Type 2 diabetes mellitus without complication, without long-term current use of insulin (CMS/HCC) POCT GLYCOSYLATED HEMOGLOBIN (HGB A1C) Routine 10/27/2024 11:04 AM EDT Type 2 diabetes mellitus without complication, without long-term current use of insulin (CMS/HCC) XR KNEE 3 VIEWS RIGHT Routine 10/27/2024 10:29 AM EDT Chronic pain of right knee HM COLONOSCOPY Routine 07/21/2024 HEPATITIS C VIRAL RNA, QUANTITATIVE, REAL-TIME PCR Routine 12/16/2022 12:25 PM EDT from Last 3 Months or Most Recently Relevant to Health Maintenance Results * (ABNORMAL) Albumin, Random Urine W/Creatinine (10/28/2024 8:20 AM EDT) Creatinine, Urine 98.80 mg/dL [facility] Microalbumin Urine 147.0 mg/L [facility] Microalbum Creatinine Ratio Ur 148.7(H) <30 ug/mg cr [facility] Comment:Albumin/Creatinine R at Reference Ranges: Normal: < 30 ug/mg creatinine Microalbuminuria: 30 - 300 ug/mg creatinineClinical Albuminuria: > 300 ug/mg creatinine Urine 10/28/2024 8:20 AM EDT 10/28/2024 11:08 AM EDT Alfreda Fuller MD LAB URINE ORDERABLES Final Result [facility] [address] [place] [address] [phone] * (ABNORMAL) Hemoglobin A1c (10/28/2024 8:20 AM EDT) Hemoglobin A1c 6.4(H) <6.0 % [facility] Comment:Hemoglobin A1C Refer ence Range Adults: 4.8 - 6.0 % Non diabetic: < 6.0 % Goal: < 7.0 %Additional Action Suggested: > 8.0 %Note: Hemoglobin A1c results are invalid for patients with abnormal amounts of HbF. Blood transfusions may impact the HbA1c concentration in the patient sample. Estimated Average Glucose 137 mg/dL [facility] Comment:eAG = Estimated ave rage glucose which is %A1C expressed asaverage glucose, using the formula of the H3W-IzznidkPpagpvr Glucose study (ADAG), Diabetes Care, Vol.31,#8,2007 Blood Venous blood specimen / Unknown 10/28/2024 8:20 AM EDT 10/28/2024 11:22 AM EDT Alfreda Fuller MD LAB BLOOD ORDERABLES Final Result Performing Organization Address [facility] Co de Phone Number [facility] [address] [place] [phone] * Hepatic Function Panel (10/28/2024 8:20 AM EDT) Bilirubin, Total 0.6 0.0 - 1.0 mg/dL [facility] Bilirubin, Direct 0.2 0.0 - 0.5 mg/dL [facility] Aspartate Amino Transferase 28 5 - 37 U/L [facility] Alanine Aminotransferase 27 0 - 40 U/L [facility] Total Protein 6.9 6.5 - 8.0 g/dL [facility] Albumin Level 4.5 3.5 - 5.0 g/dL [facility] Alkaline Phosphatase 91 39 - 117 U/L [facility] Blood Venous blood specimen / Unknown 10/28/2024 8:20 AM EDT 10/28/2024 11:24 AM EDT Alfreda Fuller MD LAB BLOOD ORDERABLES Final Result Performing Organization Address [facility] Co ri Phone Number [facility] [address] [place] [phone] * (ABNORMAL) Lipid Panel, Standard (10/28/2024 8:20 AM EDT) Triglycerides 87 <150 mg/dL [facility] Comment:Desirable Triglyceri de: less than 150 mg/dLBorderline High Triglyceride 150-199 mg/dLHigh Triglyceride: 200-499 mg/dLVery High Triglyceride: greater than or equal to 5OO mg/dL Cholesterol 103 <200 mg/dL [facility] Comment:Desirable Cholestero l: less than 200 mg/dLBorderline High Cholesterol: 200-239 mg/dLHigh Cholesterol: greater than 239 mg/dL LDL Cholesterol Calculated 48 <100 mg/dL [facility] Comment:Desirable LDL: less than 100 mg/dLNear Optimal/Above Optimal LDL: 110- 129 mg/dLBorderline High LDL: 130-159 mg/dLHigh LDL: 160-189 mg/dLVery High LDL: greater than or equal to 190 mg/dL HDL Cholesterol 38(L) >40 mg/dL [facility] Comment:Desirable HDL: great er than 40 mg/dL Note: This HDL assay may give artificially low results in patients with liver disease. Blood Venous blood specimen / Unknown 10/28/2024 8:20 AM EDT 10/28/2024 11:24 AM EDT Alfreda Fuller MD LAB BLOOD ORDERABLES Final Result [facility] [address] [place] [phone] * (ABNORMAL) Basic Metabolic Panel (10/28/2024 8:20 AM EDT) Sodium 141 135 - 145 mmol/L [facility] Potassium 4.6 3.3 - 5.1 mmol/L [facility] Chloride 108 96 - 108 mmol/L [facility] Carbon Dioxide 27 22 - 29 mmol/L [facility] Anion Gap 11(L) 12 - 20 [facility] Urea Nitrogen (BUN) 23(H) 9 - 16 mg/dL [facility] Creatinine, Serum 1.10 0.5 - 1.4 mg/dL [facility] Estimated Glomerular Filt Rate >60 [facility] Comment:Chronic Kidney Disea se: Estimated GFR < 60 mL/min/1.16h0Ogyckg Kidney Disease: Estimated GFR < 15 mL/min/1.73m2 Glucose 118(H) 60 - 115 mg/dL [facility] Calcium 9.3 8.4 - 10.2 mg/dL [facility] Blood Venous blood specimen / Unknown 10/28/2024 8:20 AM EDT 10/28/2024 11:24 AM EDT Alfreda Fuller MD LAB BLOOD ORDERABLES Final Result [facility] [address] [place] [phone] * (ABNORMAL) POCT glucose manually resulted (10/27/2024 11:05 AM EDT) Glucose Blood, POC 221(A) 60 - 200 mg/dL [employer] Media Lot # [id number] Lot# Expiration Date [id number] Blood Capillary blood specimen / Unknown 10/27/2024 11:05 AM EDT Alfreda Fuller MD POINT OF CARE TEST ENTER/E DIT ORDERABLES Final Result * (ABNORMAL) POCT glycosylated hemoglobin (Hgb A1c) (10/27/2024 11:04 AM EDT) Hemoglobin A1C 6.8(A) 4.0 - 5.7 % QC Media Lot # [id number] Lot# Expiration Date [id number] Blood Capillary blood specimen / Unknown 10/27/2024 11:04 AM EDT Alfreda Fuller MD POINT OF CARE TEST ENTER/E DIT ORDERABLES Final Result * XR Knee 3 Views Right (10/27/2024 10:29 AM EDT) Anatomical Region Laterality Modality Lower Extremities, Knee Right Radiogra phic Imaging 10/27/2024 10:2 9 AM EDT Narrative 10/27/2024 12:25 PM EDT [address] [address] XRay Report Signed Patient: Donnie Hogan MR#: [id number] : 1960 Acct:[id number] Age/Sex: 64 / M ADM Date: 10/27/24 [facility] Attending Dr: Alfreda Fuller MD Ordering Physician: Alfreda Fuller MD Date of Service: 10/27/24 Procedure(s): XR knee RT 3V Accession Number(s): [id number] cc: Alfreda Fuller MD EXAMINATION: XR KNEE, [...] 10/27/24 1223 DD/ 1029 TD/TT: 10/27/24 1035 Asset Protection Professional: Procedure Note Donotuseinterpreter, Image - 10/27/[address] [address] XRay Report Signed Patient: Donnie Hogan AMR#: [id number] : 1960cct:[id number] Age/Sex: 64 / MADM Date: 10/27/24 Loc: [facility] Attending Dr: Alfreda Fuller MD Ordering Physician: Alfreda Fuller MD Date of Service: 10/27/24 Procedure(s): XR knee RT 3V Accession Number(s): [id number] cc: Alfreda Fuller MD EXAMINATION: XR KNEE, [...] 10/27/24 1223 DD/ 1029 TD/TT: 10/27/24 1035 Asset Protection Professional: Alfreda Fuller MD IMG XR PROCEDURES Final Re sult * (ABNORMAL) Colonoscopy (07/21/2024) Colonoscopy Abnormal( A) Normal Comment:popylp with Dr. Maciel bello Historical Provider HEALTH MAINTENANCE Final Result * Hepatitis C Viral RNA, Quantitative, Real-Time PCR (12/16/2022 12:25 PM EDT) Pathologist [facility] Hepatitis C Viral Load <15 NOT DETECTED NOT DETECTED IU/mL [facility] HCV Log PCR <1.18 NOT DETECTED NOT DETECTED Log IU/mL [facility] Comment:This test was perfor med using Real-Time Polymerase ChainReaction.Reportable Range: 15 IU/mL to 100,000,000 IU/mL(1.18 Log IU/mL to 8.00 Log IU/mL).The analytical performance characteristics of thisassay have been determined by [employer].The modifications have not been cleared or approved bythe FDA. This assay has been validated pursuant to theCLIA regulations and is used for clinical purposes.For more information on this test, go to:http://education.[employer]/faq/BBM29b3(This link is being provided for informational/educational purposes only.)THIS TEST WAS PERFORMED AT:[id number] [place] [phone] BONNER MD 12/16/2022 12:2 5 PM EDT 12/16/2022 1:09 PM EDT Alfreda Fuller MD LAB BLOOD ORDERABLES Final Result [facility] [address] [place] [phone] [phone] from Last 3 Months or Most Recently Relevant to Health Maintenance Insurance [facility] DIRECT Advance Directives Documents on File Type Date Recorded Patient Erp Analyst Expl anation Advance Directives and Living Will 02/26/2024 Health Care Proxy 02/26/24 Care Teams Environmental Research Project Manager Relationship Specialty Start Date End Date Alfreda Fuller MD [address] [place] [phone] PCP - General Family Medicine 04/07/18 Roxanne Pino PharmD [address] [place] [address] Pharmacist Internal Medicine 04/18/22 Luis M Neal MD [address] [place] [address] [address] [place] [phone] Gastroenterology 02/26/24 Nilesh Stout MD [address] [place] [address] Ophthalmology 02/26/24 Bobbi Valerio MD [facility] Cardiology 06/08/24
--- OUTSIDE RECORDS SUMMARY | 2024-12-29 10:01 | XMS_ITS | Encounter Summary ---
Author Organization [employer] Address [address] [facility] 7t [place] [address] Care Team Providers Care Adjunct Trainer Name Role Phone Alfreda Fuller MD Primary Care Provider [phone] Roxanne Pino PharmD Unavailable [phone] Luis M Neal MD Unavailable [phone] Nilesh Stout MD Unavailable [phone] Encounter Details Date Type Department Care Team (Late st Contact Info) Description 02/21/2023 Abstract [facility] MEDICINE [address] [place] [address] Jesusita Aguilar Social History Tobacco Use Types Packs/Day Years Used Date Smoking Tobacco: Every Day Cigarettes Depression Answer Date Recorded Patient Health Questionnaire-9 Score 0 11/06/2022 Housing Stability Answer Date Recorded What is your housing situation today? I have messiarnie mckeon 01/27/[address] you li ve. Do you have problems with any of the following? None of the above 01/27/2023 Food Insecurity Answer Date Recorded Within the past 12 months, y ou worried that your food would run out before you got money to buy more: Never True 01/27/2023 Within the past 12 months,th e food you bought just didn't last and you didn't have enough money to get more: Never True Transportation Answer Date Recorded In the past 12 months, has l ack of transportation kept you from medical appts, meetings, work or from getting things needed for daily living? No 01/27/2023 Utilities Answer Date Recorded In the past 12 months, has t he electric, gas, oil or water company threatened to shut off services in your home? No 01/27/2023 Depression Answer Date Recorded Patient Health Questionnaire-2 Score 0 11/06/2022 Sex and Gender Information Value Date Recorded [...] Pressure 138/64( 025 10:36 AM EDT) No Roxanne De La Cruz, PharmD documented as of this encounter Visit Diagnoses Not on filedocumented in this encounter Additional Health Concerns Assessment Noted Time PHQ-9 Depression Total Score: 0 11/07/19 11:17 AM EDT documented as of this encounter Care Teams Adjunct Trainer Relationship Specialty Start Date End Date Alfreda Fuller MD [address] [place] [address] PCP - General Family Medicine 04/07/18 Roxanne Pino, PharmD [address] [place] [address] Pharmacist Internal Medicine 04/18/22 Luis M Neal MD [address] [place] [address] [address] [place] [address] Gastroenterology 02/26/24 Nilesh Stout MD [address] [place] [address] Ophthalmology 02/26/24 Bobbi Valerio MD [facility] 06/08/24 documented as of this encounter
--- OUTSIDE RECORDS SUMMARY | 2024-12-29 10:01 | XMS_ITS | Patient Health Record ---
Author Organization [facility] Address [address] [place] [address] Care Team Providers Care Filler Machine Operator Name Role Phone Alfreda Fuller MD Primary Care Provider Luis M Spencer Jr Unavailable [phone] Allergies No Known Allergies Results Component Value Reference Range Notes Glucose, Whole Blood Reviewed date:07/22/2024 07:16:32 AM Interpretation: Performing Lab:[facility], [address] [place] [phone] Notes/Report: Glucose, Whole Blood 108 60-115 mg/dL METER # : [id number] Pathology Reviewed date:07/23/2024 08:54:33 AM Interpretation: Performing Lab:[facility], [address] [place] [phone] Notes/Report: Reason For Referral No Information Medications Medication SIG (Take, Route, Frequency, Duration) Notes Start Date End Date Status Jardiance 25 MG TAKE 1 TABLET BY EDITH TH ONCE DAILY Oral for 90 Days Active amLODIPine Besylate 5 MG Oral for 90 Days Unknown Atorvastatin Calcium 40 MG TAKE 1 TABLET BY MOUTH AT BEDTIME Oral for 90 Days Unknown Dulcolax 5 MG 4 tablets for bowel prep Orally Once a day for 1 days 07/15/2024 Unknown Polyethylene Glycol 3350 - for bowel prep for 1 days 8.3 ounces 07/15/2024 Unknown Metoprolol Succinate ER 25 MG TAKE 1 TABLET BY MOUTH ONCE DAILY Oral Once a day Unknown Lisinopril 20 MG TAKE 1 TABLET BY EDITH TH EVERY DAY Orally Once a day Unknown Aspirin Adult Low Strength 81 MG 1 tablet Orally Once a day Unknown Immunizations Vaccine Route Administration Date Status Comme nts Influenza Unknown 01/13/2018 Administered Social History Tobacco Use: Social History Observation Description Date Details (start date - stop date) Current Smoker NA - NA Tobacco Use/Smoking Question Answer Notes Patient is a current smoker How often do you smoke cigarettes? every day How many cigarettes a day do you smoke? 31 or mo re How soon after you wake up do you smoke your fir st cigarette? within 5 minutes Are you interested in quitting? Not ready to ortiz t Alcohol Screen Question Answer Notes Did you have a drink containing alcohol in the p ast year? No Points 0 Interpretation Negative Problems Problem Type SNOMED Code ICD Code Onset Dates Problem Status W/U Status Risk Notes Problem 297214782 Colon cancer screening (Z12.11) Active confirmed Problem 656259940 Abnormal findings in stool (R19.5) Active confirmed Problem 272201767 Long-term use of aspirin therapy (Z79.82) Active confirmed Vital Signs Blood pressure diastolic 111 mm Hg 06/24/2024 Height 73 in 06/24/2024 Blood pressure systolic 111 mm Hg 06/24/2024 Weight 223 lbs 06/24/2024 BMI 29.42 kg/m2 06/24/2024 Encounters Encounter Location Date Provider Diagnosis [facility] [address] [place] [id number] 07/20/2024 Luis M Neal Jr Colon cancer screening Z12.11 ; Personal history of adenomatous and serrated colon polyps Z86.0101 and Colon polyps K63.5 [facility] [address] [place] [phone] 06/24/2024 Luis M Neal Jr Long-term use of aspirin therapy Z79.82 and Colon cancer screening Z12.11 [facility] [address] [place] [phone] 07/15/2024 Luis M Neal Jr [facility] [address] [place] [phone] 07/16/2024 Luis M Neal Jr [facility] [address] [place] [phone] 07/23/2024 Luis M Neal Jr Assessments Encounter Date Diagnosis (ICD Code) Assessment Notes Treatment Notes Treatment Clinical Notes Section Notes 07/20/2024 Colon cancer screening (ICD-10 - Z12.11) 07/20/2024 Personal history of adenomatous and serrated colon polyps (ICD-10 - Z86.0101) 06/24/2024 Colon cancer screening (ICD-10 - Z12.11) We discussed colonoscopy today. We discussed risks and benefits of the procedure today. He understands these and agrees to proceed. This will be scheduled at his convenience.He will stop aspirin 1 week before the procedure. 06/24/2024 Long-term use of aspirin therapy (ICD-10 - Z79.82) We discussed colonoscopy today. We discussed risks and benefits of the procedure today. He understands these and agrees to proceed. This will be scheduled at his convenience.He will stop aspirin 1 week before the procedure. 07/20/2024 Colon polyps (ICD-10 - K63.5) Plan Of Treatment Future Test Test Name Order Date COLONOSCOPY 09/09/2018 COLONOSCOPY 06/24/2024 Insurance Providers Payer Name Payer Address Payer Phone Subscriber Number Group Number Insured Name Patient Relationship to Insured Coverage Start Date Coverage End Date [facility] [address] [place] [address] [id number] JELENA PINEDA Self - patient is the insured Medical (General) History Medical History History ICD Code obstructive sleep apnea Not currently on CPAP hypertension Atrial fibrillation, Now in normal sinus rhythm after multiple procedures COPD Diabetes mellitus, diet controlled Chronic kidney disease stage III Colonoscopy 10/23, tubular adenoma, 5-yea r follow-up Surgical History Surgery Date(Month/Year) cardiac ablation x3
--- OUTSIDE RECORDS SUMMARY | 2024-12-29 10:01 | XMS_ITS | Encounter Summary ---
Author Organization [employer] Address [address] [facility] 7t [place] [address] Care Team Providers Care Accounts Receivable Specialist Name Role Phone Alfreda Fuller MD Primary Care Provider [phone] Roxanne Pino PharmD Unavailable Luis M Neal MD Unavailable [phone] Nilesh Stout MD Unavailable [phone] Encounter Details Date Type Department Care Team (Late st Contact Info) Description 11/05/2022 Abstract [facility] MEDICINE [address] [place] [address] Alfreda Fuller MD [address] [place] [address] Social History Tobacco Use Types Packs/Day Years Used Date Smoking Tobacco: Every Day Cigarettes Depression Answer Date Recorded Patient Health Questionnaire-9 Score 0 11/06/2022 Depression Answer Date Recorded Patient Health Questionnaire-2 Score 0 11/06/2022 Sex and Gender Information Value Date Recorded Sex Assigned at Male 02/04/2022 10:19 AM EDT Legal Sex Male 10:19 AM EDT Gender Identity Male 02/04/2022 10:19 AM EDT Sexual Orientation Straight 02/04/2022 10 :19 AM EDT documented as of this encounter Functional Status * Over the past 2 weeks, how often have you been bothered by any of the following problems? Question Answer Date of Assessment Author Patient Health Questionnaire-2 Score 0 08/0 05/2022 11:17 AM EDT Ashely Maguire MA * Over the past 2 weeks, how often have you been bothered by any of the following problems? Question Answer Date of Assessment Author Little interest or pleasure in doing things Not at all 11/06/2022 11:17 AM Ashely Guidry M A Feeling down, depressed, or hopeless Not at all 11/06/2022 11:17 AM Ashely Guidry M A Trouble falling or staying asleep, or sleeping too much Not at all 11/06/2022 11:17 AM Ashely Guidry MA Feeling tired or having alvin le energy Not at all 11/06/2022 11:17 AM Ashely Guidry M A Poor appetite or overeating Not at all 11/06/2022 11 :17 AM Ashely Guidry [place] Feeling bad about yourself - or that you are a failure or have let yourself or your family down Not at all 11/06/2022 11:17 AM Ashely Horvath MA Trouble concentrating on thi ngs, such as reading the newspaper or watching television Not at all 11/06/2022 11:17 AM Ashely Guidry M A Moving or speaking so slowly that other people could have noticed? Or the opposite - being so fidgety or restless that you have been moving around a lot more than usual. Not at all 11/06/2022 11:17 AM Ashely Guidry M A Thoughts that you would be better off or hurting yourself in some way Not at all 11/06/2022 11:17 AM Ashely Guidry MA Patient Health Questionnaire -9 Score 0 11/06/2022 11:17 AM Ashely Guidry M A documented as of this encounter Plan of Treatment Not on file documented as of this encounter Goals Goal Patient Goal Type Associated Problems Recent Progress Patient-Stated? Author Blood Pressure < 140/90 Blood Pressure 138/64( 025 10:36 AM EDT) No Roxanne De La Cruz, PharmD documented as of this encounter Visit Diagnoses Not on filedocumented in this encounter Care Teams Accounts Receivable Specialist Relationship Specialty Start Date End Date Alfreda Fuller MD [address] [place] [address] PCP - General Family Medicine 04/07/18 Roxanne Pino PharmD [address] [place] [address] Pharmacist Internal Medicine 04/18/22 Luis M Neal MD [address] [place] [address] [address] [place] [phone] Gastroenterology 02/26/24 Nilesh Stout MD [address] [place] [address] [address] [place] [address] Ophthalmology 02/26/24 Bobbi Valerio MD [facility]iology 06/08/24 documented as of this encounter
--- OUTSIDE RECORDS SUMMARY | 2024-12-29 10:01 | XMS_ITS | Encounter Summary ---
Author Organization [employer] Address [address] [facility] 7t [place] [address] Care Team Providers Care Accountant Property Name Role Phone Alfreda Fuller MD Primary Care Provider [phone] Roxanne Pino PharmD Unavailable Luis M Neal MD Unavailable [phone] Nilesh Stout MD Unavailable [phone] Encounter Details Date Type Department Care Team (Late st Contact Info) Description 04/23/2022 Abstract [facility] MEDICINE [address] [place] [address] Alfreda Fuller MD [address] [place] [address] Social History Tobacco Use Types Packs/Day Years Used Date Smoking Tobacco: Every Day Cigarettes Sex and Gender Information Value Date Recorded [...] Pressure 138/64( 025 10:36 AM EDT) No RizwansRoxanne Walsh, PharmD documented as of this encounter Procedures Procedure Name Priority Date/Time Associated Diagnosis Comments COLONOSCOPY Routine 10/17/2018 documented in this encounter Results * Colonoscopy (10/17/2018) Colonoscopy Tubular Adenoma with Dr. Neal us Historical Provider HEALTH MAINTENANCE Final Result documented in this encounter Visit Diagnoses Not on filedocumented in this encounter Care Teams Accountant Property Relationship Specialty Start Date End Date Alfreda Fuller MD [address] [place] [address] PCP - General Family Medicine 04/07/18 Roxanne Pino, HughD [address] [place] [address] Pharmacist Internal Medicine 04/18/22 Luis M Neal MD [address] [place] [address] [address] [place] [address] Gastroenterology 02/26/24 Nilesh Stout MD [address] [facility] [address] [place] [address] Ophthalmology 02/26/24 Bobbi Valerio MD [facility] 06/08/24 documented as of this encounter
--- OUTSIDE RECORDS SUMMARY | 2024-12-29 10:01 | XMS_ITS | Encounter Summary ---
Author Organization [facility] Address [address] [place] [address] Phone Care Team Providers Care Senior Asp Net Developer Name Role Phone Alina, Alfreda Almonte MD Primary Care Provi jw Encounter Details Date Type Department Care Team (Latest Contact Info) Description 05/27/2017 Ancillary Orders [facility] [address] [place] [address] Kenna Sanchez MD [address] [address] Atrial fibrillation, unspecified type Social History Tobacco Use Types Packs/Day Years Used Date Smoking Tobacco: Never Assessed Sex and Gender Information Value Date Recorded Sex Assigned at Not on file Legal Sex Male 10:35 PM EDT Gender Identity Not on file Sexual Orientation Not on file documented as of this encounter Plan of Treatment Not on file documented as of this encounter Results * Holter Monitor 24 Hours (05/27/2017 12:08 PM EST) Anatomical Region Laterality Modality Heart Other Narrative 05/27/2017 12:47 PM EST Holter monitor of good quality recorded for 24 hours. Rhythm was sinus with the exception of a 2 hour interval from approximately midnight to 2 AM of atrial fibrillation with heart rates in the 70 to high 80s. During sinus rhythm there is frequent supraventricular ectopy including 33 beat runs. There is very frequent ventricular ectopy representing 14% of the QRS complexes including 8 short runs the longest of which was 6 beats at a rate of approximately 130. No diary was submitted. Impression: Abnormal Holter demonstrating sinus rhythm with a 2 hour interval of rate controlled atrial fibrillation during night hours. There is frequent ventricular ectopy including 8 short ventricular runs. Ventricular ectopy appears unifocal. No diary is submitted. us Kenna Sanchez MD [facility] ORDERABLE S Final Result documented in this encounter Visit Diagnoses Diagnosis Atrial fibrillation, unspecified type Atrial fibrillation, unspecified type documented in this encounter Care Teams Senior Asp Net Developer Relationship Specialty Start Date End Date Alina, Alfreda Almonte MD [address] [place] [address] PCP - General 04/10/17 documented as of this encounter Additional Source Comments The information contained in this document represents components of the legal health record. It is not the complete legal health record.[facility]
== END 2024-12-29 09:10 | disposition home or self-care (01) ==
LOC: HO.HOS 08:48
PROVIDERS: PCP Family Medicine; Visit Provider Orthopaedic Surgery
DX: M17.11 Unilateral primary osteoarthritis, right knee (principal)
CPT/HCPCS: 99203

== ENCOUNTER → 2024-12-29 08:47 | Outpatient (BNVA) | payer OTHER, SELFPAY | PROVIDERS: PCP Family Medicine; Visit Provider Orthopaedic Surgery | DX: M17.11 Unilateral primary osteoarthritis, right knee (principal) | CPT/HCPCS: 99202 ==

== ENCOUNTER 2025-02-01 07:50 | Outpatient (AMB) | payer OTHER, SELFPAY ==
--- OUTSIDE RECORDS SUMMARY | 2023-10-13 05:20 | XMS_ITS ---
Author Organization [facility] Address [address] [place] [phone] Care Team Providers Care Real Estate Manager Name Role Phone Alina FOX, Alfreda Primary Care Provider Misty Luis M Collazo Jr [phone] REASON FOR VISIT Patient presents today for a SCREENING COLON Encounters Encounter Location Date Provider Diagnosis [facility] [address] [place] [phone] 10/13/2023 Luis M Neal Jr Plan Of Treatment No Information Progress Notes * YISSEL PINEDAHDOB: [birth year] (64 yo M)Acc No.[id number]:10/13/2023 Progress Notes Patient: JELENA BRASWELL Provider: Eugene Neal MD :1960 A ge:63 Y S ex:Male Date:10/13/2023 Address:[address] [place], [place] [phone] Pcp:Alfreda Fuller MD Subjective: * Chief Complaints: [...] Neal MD Date: 0 10/13/2023 Generated for Printi ng/Faasterg/eTransmitting on: 07:54 AM EDT
--- OUTSIDE RECORDS SUMMARY | 2024-07-20 05:10 | XMS_ITS ---
Author Organization [facility] Address [address] [place] [phone] Care Team Providers Care Heavy Equipment Field Mechanic Name Role Phone Alina FOX, Alfreda Primary Care Provider Misty Luis M Collazo Jr Unavailable REASON FOR VISIT screening Encounters Encounter Location Date Provider Diagnosis [facility] [place] [address] [place], [place] [phone] 07/20/2024 Luis M Neal Jr Colon cancer [...] * YISSEL PINEDAHDOB: [birth year] (64 yo M)Acc No.[id number]:07/20/2024 COLON WITH MAC Patient: JELENA BRASWELL Provider: Eugene Neal MD :1960 A ge:63 Y S ex:Male Date:07/20/2024 Address:[address] [place], [place] [phone] Pcp:Alfreda Fuller MD Subjective: * Chief Complaints: [...] 07/20/2024 Generated for Shayna crowley/Edward/Ravindraitting on: 1 07:54 AM EDT
--- OUTSIDE RECORDS SUMMARY | 2025-02-01 07:54 | XMS_ITS | Encounter Summary ---
Author Organization [facility] Address [address] [place] [address] Phone Care Team Providers Care Metal Room Dental Technician Name Role Phone Alfreda Fuller MD Primary Care Provi jw Encounter Details Date Type Department Care Team ([facility] st Contact Info) Description 05/27/2017 Ancillary [facility] [address] [place] [address] Kenna Sanchez MD [address] [place] [address] Social History Tobacco Use Types Packs/Day Years [...] on filedocumented in this encounter Care Teams Metal Room Dental Technician Relationship Specialty Start Date End Date Alfreda Fuller MD [address] [place] [address] PCP - General 04/10/17 documented as of this encounter Additional Source Comments The information contained in this document represents components of the legal health record. It is not the complete legal health record.[facility]
--- OUTSIDE RECORDS SUMMARY | 2025-02-01 07:54 | XMS_ITS | Encounter Summary ---
Author Organization [employer] Address [address] [facility] 7t [place] [address] Care Team Providers Care Risk And Compliance Analytics Director Name Role Phone Alfreda Fuller MD Primary Care Provider Roxanne Pino PharmD Unavailable Luis M Neal MD Unavailable [phone] Nilesh Stout MD Unavailable [phone] Jose L Rivers MD Unavailable Encounter Details Date Type Department Care Team (Late st Contact Info) Description 11/05/2022 Abstract [facility] MEDICINE [address] [place] [address] Alfreda Fuller MD [address] [place] [address] Social History Tobacco Use Types Packs/Day Years [...] Assessment Author Patient Health Questionnaire-2 Score 0 08/05/2022 11:17 AM EDT Ashely Maguire MA * [...] on filedocumented in this encounter Care Teams Risk And Compliance Analytics Director Relationship Specialty Start Date End Date Alfreda Fuller MD [address] [place] [address] PCP - General Family Medicine 04/07/18 Roxanne Pino PharmD [address] [place] [address] Pharmacist Internal Medicine 04/18/22 Luis M Neal MD [address] [facility] [address] [place] [phone] Gastroenterology 02/26/24 Nilesh Stout MD [address] [place] [address] Ophthalmology 02/26/24 Jose L Rivers MD [address] [place] [address] Orthopaedic Surgery 12/29/24 Bobbi Valerio MD [facility]iology 06/08/24 documented as of this encounter
--- OUTSIDE RECORDS SUMMARY | 2025-02-01 07:54 | XMS_ITS | Clinical Summary ---
Author Organization [facility] Address [address] [facility] [address] [place] [address] Phone Care Team Providers Care Machine Rigger Name Role Phone Alfreda Fuller MD Primary [...] complete this topic Insurance Medicaid [place] Medicaid [place] Care Teams Machine Rigger Relationship Specialty Start Date End Date Alfreda Fuller MD PCP - General Family Medicine 06/20/21
--- OUTSIDE RECORDS SUMMARY | 2025-02-01 07:54 | XMS_ITS | Encounter Summary ---
Author Organization [employer] Address [address] [facility] 7t [place] [address] Care Team Providers Care Cover Cutter Machine Name Role Phone Alfreda Fuller MD Primary Care Provider [phone] Roxanne Pino PharmD Unavailable [phone] Luis M Neal MD Unavailable [phone] Nilesh Stout MD Unavailable [phone] Jose L Rivers MD Unavailable Encounter Details Date Type Department Care Team (Late st Contact Info) Description 04/23/[address] [facility] MEDICINE [address] [place] [address] Alfreda Fuller MD [address] [place], [place] [phone] Social History Tobacco Use Types Packs/Day Years [...] EDT) No Roxanne De La Cruz PharmD documented as of this encounter Procedures Procedure Name Priority Date/Time Associated Diagnosis Comments COLONOSCOPY Routine 10/17/2018 documented in this encounter Results * Colonoscopy (10/17/2018) Colonoscopy Tubular Adenoma with Dr. Neal us Historical Provider HEALTH MAINTENANCE Final Result documented in this encounter Visit Diagnoses Not on filedocumented in this encounter Care Teams Cover Cutter Machine Relationship Specialty Start Date End Date Alfreda Fuller MD [address] [place] [address] PCP - General Family Medicine 04/07/18 Roxnane Pino, PharmD [address] [place] [address] Pharmacist Internal Medicine 04/18/22 Luis M Neal MD [address] [place] [address] [address] [place] [address] Gastroenterology 02/26/24 Nilesh Stout MD [address] [place] [address] Ophthalmology 02/26/24 Jose L Rivers MD [address] [place] [address] Orthopaedic Surgery 12/29/24 Bobbi Valerio MD [facility] Cardiology 06/08/24 documented as of this encounter
--- OUTSIDE RECORDS SUMMARY | 2025-02-01 07:54 | XMS_ITS | Clinical Summary ---
Author Organization [employer] Address [address] [facility] 7t [place] [address] Care Team Providers Care Blanket Washer Name Role Phone Alfreda Fuller MD Primary Care Provider [phone]- [phone] Roxanne Pino PharmD Unavailable Luis M Neal MD Unavailable [phone] Nilesh Stout MD Unavailable [phone] Jose L Rivers MD Unavailable Allergies No known active allergies Medications metoprolol succinate XL (Toprol-XL) 25 MG 24 hr tabletIndications :Atrial fibrillation and flutter (HCC),Primary hypertension TAKE 1 TABLET BY MOUTH EVERY DAY 90 tablet 3 5 Active aspirin (Aspirin Adult Low Strength) 81 MG EC tabletIndications :Atrial fibrillation and flutter (HCC) Take 1 tablet (81 mg) by mouth Once per day. 90 tablet 3 5 Active atorvastatin (Lipitor) 40 MG tabletIndications :Type 2 diabetes mellitus without complication, without long-term current use of insulin (HCC) TAKE 1 TABLET BY MOUTH AT BEDTIME 90 tablet 1 5 Active lisinopril 40 MG tabletIndications :Primary hypertension TAKE 1 TABLET BY MOUTH EVERY DAY 90 tablet 3 5 Active Jardiance 25 MGIndications:Typ e 2 diabetes mellitus without complication, without long-term current use of insulin (HCC) TAKE 1 TABLET BY MOUTH ONCE DAILY 90 tablet 3 5 Active amLODIPine (Norvasc) 5 MG tabletIndications :Primary hypertension TAKE 1 TABLET BY MOUTH EVERY DAY 30 tablet 11 5 Active Active Problems Problem Noted Date Diagnosed [...] care followed by Dr. Nilesh Stout of [facility], encouraged to schedule visit 11/06/2022 -dental home is [facility] -health care proxy given and filed 02/26/24 Assessment & Plan (10/27/2024 11:54 AM EDT): -next comprehensive annual evaluation due after 06/10/2024 -eye care followed by Dr. Nilesh Stout of [facility], encouraged to schedule visit 11/06/2022 -dental home is [facility] -health care proxy given and filed 02/26/24 Assessment & Plan (06/11/2023 10:42 AM EST): -next physical exam due after 06/10/2024 -eye care followed by Dr. Nilesh Stout of [facility], encouraged to schedule visit 11/06/2022 -dental home is [facility] Assessment & Plan (12/16/2022 11:34 AM EDT): -next physical exam due after 11/15/2022. -eye care followed by Dr. Nilesh Stout of [facility], encouraged to schedule visit 11/06/2022. -dental [...] as pharmacomtherapy, [facility] smoking [facility], and [facility] pharmacy smoking cessation clinic. Pt declined Collaborative [...] as pharmacomtherapy, [facility] smoking [facility], and [facility] pharmacy smoking cessation clinic. Pt declined Collaborative [...] as pharmacomtherapy, [facility] smoking [facility], and [facility] pharmacy smoking cessation clinic. Pt declined Collaborative [...] as pharmacomtherapy, [facility] smoking [facility], and [facility] pharmacy smoking cessation clinic Discussed USPSTF recommends [...] Chronic pain of right knee 05/14/2022 Overview (12/29/2024): Followed with Orthopedics in the past, was [...] is a small volume of joint fluid. -seen by Dr. Rivers 12/29/24 Mr. Hogan presents with progressively worsening right knee pain due to osteoarthritis. I had a lengthy discussion with the patient regarding the treatment options. He wishes to hold off on surgery if at all possible. I agree with this plan. I will see if the patient's insurance company will cover a viscosupplementation injection, such as Durolane, for his right knee. I will see him back once the injection is available. Assessment & Plan (10/27/2024 1:48 PM EDT): [...] Neal -Referral place 06/11/2023 -Had appt. at [facility] on 10/13/23, pt reports he missed it due to insurance -Colonoscopy with Dr. Neal 07/20/24, hyperplastic polyp Assessment & Plan (02/26/2024 9:30 AM EST): -Tubular adenoma on colonoscopy 10/[address] Neal -Referral place 06/11/2023 -Had appt. at [facility] on 10/13/23, pt reports he missed it due to insurance -referred again to GI, Dr. Neal 02/26/24 Assessment & Plan (06/11/2023 10:24 AM EST): -Tubular adenoma on colonoscopy 10/[address] Neal -Referral place 06/11/2023 Assessment & Plan (12/16/2022 11:13 AM EDT): Tubular adenoma on colonoscopy 10/[address] Neal Hepatitis C antibody test positive 07/03/2021 Stage 3a chronic kidney disease (CMS/HCC) 2021 Overview (02/26/2024): Lab Results Component Value Date [...] appt. last 03/2023. Type 2 diabetes mellitus wit h diabetic microalbuminuria, without long-term current use of insulin 06/14/2021 Overview (10/27/2024): Diabetes is controlled from most [...] exam: followed by Dr. Nilesh Stout of [facility]. -Diabetic foot exam: Done 02/26/24 -Continue lifestyle [...] exam: followed by Dr. Nilesh Stout of [facility]. -Diabetic foot exam: Done 02/26/24 -Continue lifestyle [...] exam: followed by Dr. Nilesh Stout of [facility]. -Diabetic foot exam: Done 02/26/24 -Continue lifestyle [...] exam: followed by Dr. Nilesh Stout of [facility]. -Diabetic foot exam: Done 12/16/2022. [...] exam: followed by Dr. Nilesh Stout of [facility]. -Diabetic foot exam: Done 12/16/2022. [...] Metoprolol ER 25mg daily -Last visit with financial analysis advisor MD [facility] [place] and [facility] 08/18/23, echo ordered, follow up [...] Metoprolol ER 25mg daily -Last visit with financial analysis advisor MD [facility] [place] and [facility] 08/18/23, echo ordered, follow up [...] Metoprolol ER 25mg daily -Last visit with financial analysis advisor Dr. Bobbi Valerio MD [place] and [facility] 08/18/23, echo ordered, follow up [...] lisinopril 20 mg qd. -Last visit with financial analysis advisor Dr. Michelle Villasenor MD 12/26/2020 Assessment & [...] his CPAP machine 2-4 hrs per night. -Nitza discontinued 05/2019 due to CHADVASc score of 1. -Continue ASA 81 mg qd -No longer taking Flecainide -Continue Toprlol ER 35mg daily -Continue lisinopril 20 mg qd. -Last visit with financial analysis advisor Dr. Michelle Villasenor MD 12/26/2020 Hypertension 10/02/2017 [...] Type Department Care Team Description 12/13/2024 Refill [facility] [address] [place], [place] [phone] Alfreda Fuller MD Primary hypertension 11/16/2024 Refill [facility] [address] [place] [address] Alfreda Fuller MD Type 2 diabetes mellitus without complication, without long-term current use of insulin ([facility]) 11/07/2024 Refill [facility] [address] [place] [address] Alfreda Fuller MD Primary hypertension; Atrial fibrillation and flutter ([facility]) from Last 3 Months Immunizations Immunization Administration [...] housing situation today? I have messiarnie mckeon 10/27/[address] you [...] Additional history exists Lipid Panel 10/28/2025 10/28/2024, 0309/2023, 04/29/2023, Additional history exists Colonoscopy 07/21/2029 07/21/2024, [...] EDT) No Roxanne De La Cruz, PharmD Hemoglobin A1c < 7 Result Component 6.4( 8:20 AM EDT) No Roxanne De La Cruz PharmD Procedures Procedure Name Priority Date/Time Associated Diagnosis Comments ALBUMIN, RANDOM URINE W/CREATININE Routine 10/28/2024 8:20 AM EDT Type 2 diabetes mellitus without complication, without long-term current use of insulin ([facility]) HEMOGLOBIN A1C Routine 10/28/2024 8:20 AM EDT Type 2 diabetes mellitus without complication, without long-term current use of insulin (CMS/HCC) LIPID PANEL, STANDARD Routine 10/28/2024 8:20 AM EDT Type 2 diabetes mellitus without complication, without long-term current use of insulin (CMS/HCC) HM COLONOSCOPY Routine 07/21/2024 HEPATITIS C VIRAL RNA, QUANTITATIVE, REAL-TIME PCR Routine 12/16/2022 12:25 PM EDT from Last 3 Months or Most Recently Relevant to Health Maintenance Results * (ABNORMAL) Albumin, Random Urine W/Creatinine (10/28/2024 8:20 AM EDT) Creatinine, Urine 98.80 mg/dL [facility] Microalbumin Urine 147.0 mg/L [facility] Microalbum Creatinine Ratio Ur 148.7(H) <30 ug/mg cr [facility] Comment:Albumin/Creatinine R atio Reference Ranges: Normal: < 30 ug/mg creatinine Microalbuminuria: 30 - 300 ug/mg creatinineClinical Albuminuria: > 300 ug/mg creatinine Urine 10/28/2024 8:20 AM EDT 10/28/2024 11:08 AM EDT Alfreda Fuller MD LAB URINE ORDERABLES Final Result [facility] [address] [place] [phone] * (ABNORMAL) Hemoglobin A1c (10/28/2024 8:20 AM EDT) Hemoglobin A1c 6.4(H) <6.0 % [facility] Comment:Hemoglobin A1C Refer ence Range Adults: 4.8 - 6.0 % Non diabetic: < 6.0 % Goal: < 7.0 %Additional Action Suggested: > 8.0 %Note: Hemoglobin A1c results are invalid for patients with abnormal amounts of HbF. Blood transfusions may impact the HbA1c concentration in the patient sample. Estimated Average Glucose 137 mg/dL [facility] Comment:eAG = Estimated ave rage glucose which is %A1C expressed asaverage glucose, using the formula of the U7S-VpojhneXtecjfy Glucose study (ADAG), Diabetes Care, Vol.31,#8,Nov. 2007 Blood Venous blood specimen / Unknown 10/28/2024 8:20 AM EDT 10/28/2024 11:22 AM EDT Alfreda Fuller MD LAB BLOOD ORDERABLES Final Result Performing Organization Address City/[facility] Co de Phone Number [facility] [address] [place] [phone] * (ABNORMAL) Lipid Panel, Standard (10/28/2024 8:20 AM EDT) Triglycerides 87 <150 mg/dL [facility] Comment:Desirable Triglyceri de: less than 150 mg/dLBorderline High Triglyceride 150-199 mg/dLHigh Triglyceride: 200-499 mg/dLVery High Triglyceride: greater than or equal to 5OO mg/dL Cholesterol 103 <200 mg/dL [facility] Comment:Desirable Cholestero l: less than 200 mg/dLBorderline High Cholesterol: 200-239 mg/dLHigh Cholesterol: greater than 239 mg/dL LDL Cholesterol Calculated 48 <100 mg/dL [facility] Comment:Desirable LDL: less than 100 mg/dLNear Optimal/Above Optimal LDL: 110- 129 mg/dLBorderline High LDL: 130-159 mg/dLHigh LDL: 160-189 mg/dLVery High LDL: greater than or equal to 190 mg/dL HDL Cholesterol 38(L) >40 mg/dL [facility] Comment:Desirable HDL: great er than 40 mg/dL Note: This HDL assay may give artificially low results in patients with liver disease. Blood Venous blood specimen / Unknown 10/28/2024 8:20 AM EDT 10/28/2024 11:24 AM EDT Alfreda Fuller MD LAB BLOOD ORDERABLES Final Result [facility] [address] [place] [phone] * (ABNORMAL) Hm Colonoscopy (07/21/2024) Colonoscopy Abnormal( A) Normal Comment:popylp with Dr. Maciel bello Historical Provider HEALTH MAINTENANCE Final Result * Hepatitis C Viral RNA, Quantitative, Real-Time PCR (12/16/2022 12:25 PM EDT) Hepatitis C Viral Load <15 NOT DETECTED NOT DETECTED IU/mL [facility] HCV Log PCR <1.18 NOT DETECTED NOT DETECTED Log IU/mL [facility] Comment:This test was perfor med using Real-Time Polymerase ChainReaction.Reportable Range: 15 IU/mL to 100,000,000 IU/mL(1.18 Log IU/mL to 8.00 Log IU/mL).The analytical performance characteristics of thisassay have been determined by [employer].The modifications have not been cleared or approved bythe FDA. This assay has been validated pursuant to theCLIA regulations and is used for clinical purposes.For more information on this test, go to:http://education.sofatutor/faq/KXU67f9(This link is being provided for informational/educational purposes only.)THIS TEST WAS PERFORMED AT:[facility] [place] [phone] BONNER MD 12/16/2022 12:2 5 PM EDT 12/16/2022 1:09 PM EDT Alfreda Fuller MD LAB BLOOD ORDERABLES Final Result Performing Organization Address [facility]/ZIP Co de Phone Number [facility] [address] [place] [address] [phone] from Last 3 Months or Most Recently Relevant to Health Maintenance Insurance [facility] Advance Directives Documents on File Type Date Recorded Patient Ultrasound Spec Expl anation Advance Directives and Living Will 02/26/2024 Health Care Proxy 02/26/24 Care Teams Blanket Washer Relationship Specialty Start Date End Date [place], MD Alfreda [address] [place] [address] PCP - General Family Medicine 04/07/18 Roxanne Pino, PharmD [address] [place] [phone] Pharmacist Internal Medicine 04/18/22 Luis M Neal MD [address] [place] [address] [address] [place] [phone] Gastroenterology 02/26/24 Nilesh Stout MD [address] [facility] [address] [place], [place] [phone] Ophthalmology 02/26/24 Jose L Rivers MD [address] [place] [address] Orthopaedic Surgery 12/29/24 Bobbi Valerio MD [facility] 06/08/24
--- OUTSIDE RECORDS SUMMARY | 2025-02-01 07:54 | XMS_ITS | Encounter Summary ---
Author Organization [employer] Address [address] [facility] 7t [place] [address] Care Team Providers Care Beekeeper Name Role Phone Alfreda Fuller MD Primary Care Provider [phone] Roxanne Pino PharmD Unavailable [phone] Luis M Neal MD Unavailable [phone] Nilesh Stout MD Unavailable [phone] Jose L Rivers MD Unavailable Encounter Details Date Type Department Care Team (Late st Contact Info) Description 02/21/2023 Abstract [facility] [address] [place] [address] Jesusita Aguilar Social History Tobacco Use Types Packs/Day Years Used Date Smoking Tobacco: Every Day Cigarettes Depression Answer Date Recorded Patient Health Questionnaire-9 Score 0 11/06/2022 Housing Stability Answer Date Recorded What is your housing situation today? I have messi mckeon 01/27/[address] you [...] documented as of this encounter Care Teams Beekeeper Relationship Specialty Start Date End Date Alfreda Fuller MD [address] [place] [address] PCP - General Family Medicine 04/07/18 Roxanne Pino, PharmD [address] [place] [address] Pharmacist Internal Medicine 04/18/22 Luis M Neal MD [address] [place] [address] [address] [place] [address] Gastroenterology 02/26/24 Nilesh Stout MD [address] [place] [address] Ophthalmology 02/26/24 Jose L Rivers MD [address] [place] [address] Orthopaedic Surgery 12/29/24 Bobbi Valerio MD [facility] 06/08/24 documented as of this encounter
--- OUTSIDE RECORDS SUMMARY | 2025-02-01 07:54 | XMS_ITS | Clinical Summary ---
Author Organization [facility] Address [address] [place] [address] [place] [phone] Phone Care Team Providers Care Systems Architect Name Role Phone Simpson, Alfreda Almonte MD Primary Care Provi jw [...] [place] [phone] [facility] Care Teams Systems Architect Relationship Specialty Start Date End Date Alina, Alfreda Almonte MD [address] [place] [phone] PCP - General 04/10/17 Additional Source Comments The information contained in this document represents components of the legal health record. It is not the complete legal health record.[facility]
--- OUTSIDE RECORDS SUMMARY | 2025-02-01 07:54 | XMS_ITS | Encounter Summary ---
Author Organization [employer] Address [address] [facility] 7t [place] [address] Care Team Providers Care Publishing Specialist Name Role Phone Alfreda Fuller MD Primary Care Provider Roxanne Pino PharmD Unavailable Luis M Neal MD Unavailable [phone] Nilesh Stout MD Unavailable [phone] Jose L Rivers MD Unavailable Encounter Details Date Type Department Care Team (Late st Contact Info) Description 03/22/2022 Orders Only [facility] [address] [place] [address] Halie Tay LPN Social History Tobacco Use [...] on filedocumented in this encounter Care Teams Publishing Specialist Relationship Specialty Start Date End Date Alfreda Fuller MD [address] [place], [place] [phone] PCP - General Family Medicine 04/07/18 Roxanne Pino, PharmD [address] [place], [place] [phone] Pharmacist Internal Medicine 04/18/22 Luis M Neal MD [address] [place] [phone] Gastroenterology 02/26/24 Nilesh Stout MD [address] [place] [address] Ophthalmology 02/26/24 Jose L Rivers MD [address] [place] [address] Orthopaedic Surgery 12/29/24 Bobbi Valerio MD [facility] 06/08/24 documented as of this encounter
--- OUTSIDE RECORDS SUMMARY | 2025-02-01 07:54 | XMS_ITS | Encounter Summary ---
Author Organization [employer] Address [address] [facility] 7t [place] [address] Care Team Providers Care Network Desktop Support Specialist Name Role Phone Alfreda Fuller MD Primary Care Provider + [phone] Roxanne Pino PharmD Unavailable [phone] Luis M Neal MD Unavailable [phone] Nilesh Stout MD Unavailable [phone] Jose L Rivers MD Unavailable Encounter Details Date Type Department Care Team (Late st Contact Info) Description 04/15/2022 Orders Only [facility] [address] [place] [address] Halie Tay LPN Social History Tobacco Use [...] Walsh, PharmD documented as of this encounter Visit Diagnoses Not on filedocumented in this encounter Care Teams Network Desktop Support Specialist Relationship Specialty Start Date End Date Alfreda Fuller MD [address] [place] [address] PCP - General Family Medicine 04/07/18 Roxanne Pino, HughD [address] [place] [address] Pharmacist Internal Medicine 04/18/22 Luis M Neal MD [address] [place] [phone] Gastroenterology 02/26/24 Nilesh Stout MD [address] [place] [address] Ophthalmology 02/26/24 Jose L Rivers MD [address] [place] [address] Orthopaedic Surgery 12/29/24 Bobbi Valerio MD [facility] 06/08/24 documented as of this encounter
--- OUTSIDE RECORDS SUMMARY | 2025-02-01 07:54 | XMS_ITS | Encounter Summary ---
Author Organization [employer] [facility] Address [address] [facility] 7t [place] [address] Care Team Providers Care Loss Prevention Lead Name Role Phone Alfreda Fuller MD Primary Care Provider Roxanne Pino PharmD Unavailable Luis M Neal MD Unavailable Nilesh Stout MD Unavailable [phone] Jose L Rivers MD Unavailable Reason for Visit * Reason Comments Med Refill Encounter Details Date Type Department Care Team (Late st Contact Info) Description 03/22/2022 Refill [facility] [address] [place] [address] Roxanne Pino, PharmD [address] [place] [address] Primary hypertension (Primary Dx) Social History Tobacco [...] hypertension documented in this encounter Care Teams Loss Prevention Lead Relationship Specialty Start Date End Date Alfreda Fuller MD [address] [place] [address] PCP - General Family Medicine 04/07/18 Roxanne Pino, HughD [address] [place] [address] Pharmacist Internal Medicine 04/18/22 Luis M Nael MD [address] [facility] [address] [place] [phone] Gastroenterology 02/26/24 Nilesh Stout MD [address] [place] [address] Ophthalmology 02/26/24 Jose L Rivers MD [address] [place] [address] Orthopaedic Surgery 12/29/24 Bobbi Valerio MD [facility] 06/08/24 documented as of this encounter
--- OUTSIDE RECORDS SUMMARY | 2025-02-01 07:54 | XMS_ITS | Patient Health Record ---
Author Organization [facility] Address [address] [place] [address] Care Team Providers Care Wetlands Technician Name Role Phone Alfreda Fuller MD Primary Care Provider Luis M Spencer Jr Unavailable Allergies No Known Allergies Results Component Value Reference Range Notes Glucose, Whole Blood Reviewed date:07/22/2024 07:16:32 AM Interpretation: Performing Lab:[facility], [address] [place] [phone] Notes/Report: Glucose, Whole Blood 108 60-115 mg/dL METER # : [id number] Pathology Reviewed date:07/23/2024 08:54:33 AM Interpretation: Performing Lab:[facility], [address] [place] [phone] Notes/Report: Reason For Referral No Information Medications Medication SIG (Take, Route, Frequency, Duration) Notes Start Date End Date Status Jardiance 25 MG TAKE 1 TABLET BY EDITH TH ONCE DAILY Oral; Duration: 90 Days Active amLODIPine Besylate 5 MG Oral; Duration: 90 Days Unknown Atorvastatin Calcium 40 MG TAKE 1 TABLET BY MOUTH AT BEDTIME Oral; Duration: 90 Days Unknown Dulcolax 5 MG 4 tablets for bowel prep Orally Once a day; Duration: 1 days 07/15/2024 Unknown Polyethylene Glycol 3350 - for bowel prep; Duration: 1 days 8.3 ounces 07/15/2024 Unknown Metoprolol [...] Problem Status W/U Status Risk Notes Problem Colon cancer screening (691880436) Colon cancer screening (Z12.11) Active confirmed Problem Abnormal feces (122821999) Abnormal findings in stool (R19.5) Active confirmed Problem Long-term current use of antiplatelet drug (770377306616287) Long-term use of aspirin therapy (Z79.82) Active confirmed Vital Signs Blood pressure diastolic 111 mm Hg 06/24/2024 Height 73 in 06/24/2024 Blood pressure systolic 111 mm Hg 06/24/2024 Weight 223 lbs 06/24/2024 BMI 29.42 kg/m2 06/24/2024 Encounters Encounter Location Date Provider Diagnosis [facility] Outpatient [address] [place] [id number] 07/20/2024 Luis M Neal Jr Colon cancer screening Z12.11 ; Personal history of adenomatous and serrated colon polyps Z86.0101 and Colon polyps K63.5 [facility] [address] [place] [phone] 06/24/2024 Luis M Neal Jr Long-term use of aspirin therapy Z79.82 and Colon cancer screening Z12.11 [facility] [address] [place] [phone] 07/15/2024 Luis M Neal Jr [facility] [address] [place] [phone] 07/16/2024 Luis M Neal Jr [facility] [address] [place] [phone] 07/23/2024 Luis M Neal Jr Assessments Encounter [...] Insured Coverage Start Date Coverage End Date [facility] [address] [facility] [place] [address] [id number] JELENA PINEDA Self - patient is the [...]
--- OUTSIDE RECORDS SUMMARY | 2025-02-01 07:54 | XMS_ITS | Encounter Summary ---
Author Organization [facility] Address [address] [place] [address] Phone Care Team Providers Care Regulator Inspector Name Role Phone [place], Alfreda Almonte MD Primary Care Provi jw Encounter Details Date Type Department Care Team (Latest Contact Info) Description 05/27/2017 Ancillary Orders [facility] [address] [place] [address] Kenna Sanchez MD [address] [address] Atrial fibrillation, unspecified type Social History Tobacco [...] type documented in this encounter Care Teams Regulator Inspector Relationship Specialty Start Date End Date [place], Alfreda Almonte MD [address] [place] [address] PCP - General 04/10/17 documented as of this encounter Additional Source Comments The information contained in this document represents components of the legal health record. It is not the complete legal health record.[facility]
--- NOTE | 2025-02-01 08:06 | MHC.OFFVIS ---
Intake Visit Reasons: INJ- RT KNEE EUFLEXXA #1 Intake Note: Donnie is a 64 year old male who presents with complaints of right knee pain. The patient describes his pain as sharp in nature. He has failed the last 3 months of conservative treatment. He has had cortisone injections in the past which gave him minimal relief. He has not had a viscosupplementation injection. He wishes to hold off on surgery if at all possible. Allergies No Known Allergies Allergy (Verified 12/29/24 08:53) Medication List - Last Reconciled 02/01/25 by Jose L Rivers MD amlodipine 5 mg PO DAILY aspirin 81 mg PO DAILY atorvastatin 40 mg PO BEDTIME empagliflozin (Jardiance) 25 mg PO DAILY lisinopril 40 mg PO DAILY metoprolol succinate ER 25 mg PO DAILY [facility] Medical History (Updated 12/29/24 @ 09:16 by Jose L Rivers MD) Chronic renal insufficiency Diabetes COPD (chronic obstructive pulmonary disease) MARCOS (obstructive sleep apnea) History of hepatitis C Tubular adenoma of colon (~2019) Personal history of nicotine dependence Atrial fibrillation HTN (hypertension) Surgical History History of liver biopsy History of nasal surgery History of colonoscopy History of cardiac radiofrequency ablation Social History (Updated 07/16/24 @ 12:29 by Candie Huston RN) Household Members Other:: roommate Are you a primary care process manager to a significant other at home: No Do you presently have visiting nurse or other home services: No Patient Tobacco Use Status: Former Tobacco user Tobacco use type: Cigarette Cigarettes Per Day: 30 Physical Exam Const Other: Well-nourished well-developed very friendly male awake alert and oriented x3 in no acute distress Extrem Other: Right knee examination shows a minimal effusion, palpable crepitus with range of motion, pain with range of motion, no instability Office Procedures AMB Joint Injection/Aspiration Joint Injection/Aspiration Primary Site: right knee Prep: site was prepped using aseptic technique Injected: 20 mg of (Euflexxa viscosupplementation), with 4 mL of and 1% plain lidocaine Procedure: The patient tolerated the procedure well Coding 76726 - Large joint Procedure code (CPT) selection complete Results Reviewed Results Reviewed: X-rays of the patient's right knee taken previously show joint space narrowing subchondral sclerosis, no acute bony abnormalities Assessment & Plan Assessment & Plan (1) Osteoarthritis of right knee: Code(s): M17.11 - Unilateral primary osteoarthritis, right knee Category: Medical Plan Mr. Hogan presents with right knee pain due to osteoarthritis. The risks and benefits of the 1st Euflexxa viscosupplementation injection were discussed at length with the patient. The patient wished to proceed. He tolerated the injection well. He will continue with his home exercise program. He will follow up next week as scheduled. Feel free to call me at any time should questions regarding his orthopedic management arise. I spent 22 minutes in reviewing the patient's records and imaging studies, seeing the patient and documenting in the medical record. Orders: Orders AMB Joint Injection/Aspiration Today M17.11 - Unilateral primary osteoarthritis, right knee Coding Level of Care Code Est Pt Level 3 (30517) Complex EM visit Add On G2211 Diagnoses Osteoarthritis of right knee M17.11 CPT Codes Coding - 69638 Large joint: 80938 - Large joint ([id number])
== END 2025-02-01 08:17 | disposition home or self-care (01) ==
LOC: HO.HOS 07:50
PROVIDERS: PCP Family Medicine; Visit Provider Orthopaedic Surgery
DX: M17.11 Unilateral primary osteoarthritis, right knee (principal)
CPT/HCPCS: 20610

== ENCOUNTER → 2025-02-01 07:50 | Outpatient (BNVA) | payer OTHER, SELFPAY | PROVIDERS: PCP Family Medicine; Visit Provider Orthopaedic Surgery | DX: M17.11 Unilateral primary osteoarthritis, right knee (principal) | CPT/HCPCS: 20610; J2003; J7323 ==

== ENCOUNTER 2025-02-08 07:49 | Outpatient (AMB) | payer OTHER, SELFPAY ==
--- OUTSIDE RECORDS SUMMARY | 2023-10-13 04:20 | XMS_ITS ---
Author Organization [facility] Address [address] [place] [phone] Care Team Providers Care Him Coder Name Role Phone Alina FOX, Alfreda Primary Care Provider Misty andrewilaLuis M Crum Jr [phone] REASON FOR VISIT Patient presents today for a SCREENING COLON Encounters Encounter Location Date Provider Diagnosis [facility] [address] [place] [phone] 10/13/2023 Luis M Neal Jr Plan Of Treatment No Information Progress Notes * YISSEL PINEDAHDOB: [birth year] (64 yo M)Acc No.[id number]:10/13/2023 Progress Notes Patient: JELENA BRASWELL Provider: Eugene Neal MD :1960 A ge:63 Y S ex:Male Date:10/13/2023 Address:[address] [place], [place] [phone] Pcp:Alfreda Fuller MD Subjective: * Chief Complaints: [...] MD Date: 0 10/13/2023 Generated for Waynei keo/Faasterg/eTransmitting on: 04/10/2024 07:51 AM EST
--- OUTSIDE RECORDS SUMMARY | 2024-07-20 04:10 | XMS_ITS ---
Author Organization [facility] Address [address] [place] [address] Care Team Providers Care Security System Administrator Name Role Phone Alina FOX, Alfreda Primary Care Provider Misty Luis M Collazo Jr Unavailable [phone] REASON FOR VISIT screening Encounters Encounter Location Date Provider Diagnosis [facility] [address] [place], [place] [phone] 07/20/2024 Luis M Neal Jr Colon cancer screening Z12.11 ; Personal history of adenomatous and serrated colon polyps Z86.0101 and Colon polyps K63.5 Assessments Encounter Date Diagnosis (ICD Code) Assessment Notes Treatment Notes Treatment Clinical Notes Section Notes 07/20/2024 Colon cancer screening (ICD-10 - Z12.11) 07/20/2024 Personal history of adenomatous and serrated colon polyps (ICD-10 - Z86.0101) 07/20/2024 Colon polyps (ICD-10 - K63.5) Plan Of Treatment No Information Progress Notes * YISSEL PINEDAHDOB: [birth year] (64 yo M)Acc No.[id number]:07/20/2024 COLON WITH MAC Patient: JELENA BRASWELL Provider: Eugene Neal MD :1960 A ge:63 Y S ex:Male Date:07/20/2024 Address:[address] [place], [place] [phone] Pcp:Alfreda Fuller MD Subjective: * Chief Complaints: * 1 . Screening. * Medical History: Objective: * Vitals: Assessment: * Assessment: 1. C olon cancer screening - Z12.11 (Primary) 2 . P ersonal history of adenomatous and serrated colon polyps - Z86.0101 3 . C olon polyps - K63.5 ? Plan: * Treatment: * Procedure Codes: 4 5380 COLONOSCOPY AND BIOPSY, 0529F INTRVL 3+YRS PTS CLNSCP DOCD * * The named appointment provid er may or may not be the originator of this progress note, and it is not deemed complete until electronically signed by the appointment provider. Sign off status: Pending * Provider: Eugene Neal MD Date: 0 07/20/2024 Generated for Shayna crowley/Edward/Ravindraitting on: 1 04/10/2024 07:51 AM EST
--- OUTSIDE RECORDS SUMMARY | 2025-02-08 07:51 | XMS_ITS | Encounter Summary ---
Author Organization [facility] Address [address] [place] [address] Phone Care Team Providers Care Channel Worker Name Role Phone Alfreda Fuller MD Primary Care Provi jw Encounter Details Date Type Department Care Team ([facility] st Contact Info) Description 05/27/2017 Ancillary [facility] [address] [place] [address] Kenna Sanchez MD [address] [place] [address] Social History Tobacco Use Types Packs/Day Years [...] on filedocumented in this encounter Care Teams Channel Worker Relationship Specialty Start Date End Date Alfreda Fuller MD [address] [place] [address] PCP - General 04/10/17 documented as of this encounter Additional Source Comments The information contained in this document represents components of the legal health record. It is not the complete legal health record.[facility]
--- OUTSIDE RECORDS SUMMARY | 2025-02-08 07:51 | XMS_ITS | Clinical Summary ---
Author Organization [employer] Address [address] [facility] 7[address] [place] [address] Care Team Providers Care Circuit Walker Name Role Phone Alfreda Fuller MD Primary Care Provider [phone]- [phone] Roxanne Pino PharmD Unavailable Luis M Neal MD Unavailable [phone] Nilesh Stout MD Unavailable [phone] Jose L Rivers MD Unavailable Allergies No [...] care followed by Dr. Nilesh Stout of [facility], encouraged to schedule visit 11/06/2022 -dental home is [facility] -health care proxy given and filed 02/26/24 Assessment & Plan (10/27/2024 11:54 AM EDT): -next comprehensive annual evaluation due after 06/10/2024 -eye care followed by Dr. Nilesh Stout of [facility], encouraged to schedule visit 11/06/2022 -dental home is [facility] -health care proxy given and filed 02/26/24 Assessment & Plan (06/11/2023 10:42 AM EST): -next physical exam due after 06/10/2024 -eye care followed by Dr. Nilesh Stout of [facility], encouraged to schedule visit 11/06/2022 -dental home is [facility] Assessment & Plan (12/16/2022 11:34 AM EDT): -next physical exam due after 11/15/2022. -eye care followed by Dr. Nilesh Stout of [facility], encouraged to schedule visit 11/06/2022. -dental home [...] as pharmacomtherapy, [facility], and [facility] pharmacy smoking cessation clinic. Pt declined Collaborative [...] as pharmacomtherapy, [facility] smoking [facility], and [facility] pharmacy smoking cessation clinic. Pt declined Collaborative [...] as pharmacomtherapy, [facility] smoking [facility], and [facility] pharmacy smoking cessation clinic. Pt declined Collaborative [...] as pharmacomtherapy, [facility] smoking [facility], and [facility] pharmacy smoking cessation clinic Discussed USPSTF recommends [...] Chronic pain of right knee 05/14/2022 Overview (02/03/2025): Followed with Orthopedics in the past, was [...] off on surgery if at all possible. -seen by Dr. Rivers 02/01/25 s/p RT KNEE EUFLEXXA #1 Assessment & Plan (10/27/2024 1:48 PM EDT): [...] Neal -Referral place 06/11/2023 -Had appt. at [facility] on 10/13/23, pt reports he missed it due to insurance -Colonoscopy with Dr. Neal 07/20/24, hyperplastic polyp Assessment & Plan (02/26/2024 9:30 AM EST): -Tubular adenoma on colonoscopy 10/[address] Neal -Referral place 06/11/2023 -Had appt. at [facility] on 10/13/23, pt reports he missed it due to insurance -referred again to GI, Dr. Neal 02/26/24 Assessment & Plan (06/11/2023 10:24 AM EST): -Tubular adenoma on colonoscopy 10/[address] Neal -Referral place 06/11/2023 Assessment & Plan (12/16/2022 11:13 AM EDT): Tubular adenoma on colonoscopy 10/[address] Neal Hepatitis C antibody test positive 07/03/2021 Stage 3a chronic kidney disease ([facility]/HCC) 2021 Overview (02/26/2024): Lab Results Component Value [...] exam: followed by Dr. Nilesh Stout of [facility]. -Diabetic foot exam: Done 02/26/24 -Continue lifestyle [...] exam: followed by Dr. Nilesh Stout of [facility]. -Diabetic foot exam: Done 02/26/24 -Continue lifestyle [...] exam: followed by Dr. Nilesh Stout of [facility]. -Diabetic foot exam: Done 02/26/24 -Continue lifestyle [...] exam: followed by Dr. Nilesh Stout of [facility]. -Diabetic foot exam: Done 12/16/2022. -Continue lifestyle [...] exam: followed by Dr. Nilesh Stout of [facility]. -Diabetic foot exam: Done 12/16/2022. -Continue lifestyle [...] Metoprolol ER 25mg daily -Last visit with golf tournament consultant MD [facility] 08/18/23, echo ordered, follow up 6 months [...] Metoprolol ER 25mg daily -Last visit with golf tournament consultant MD [facility] 08/18/23, echo ordered, follow up 6 months [...] Metoprolol ER 25mg daily -Last visit with golf tournament consultant Dr. Bobbi Valerio MD [place] [facility] 08/18/23, echo ordered, follow up [...] lisinopril 20 mg qd. -Last visit with golf tournament consultant Dr. Michelle Villasenor MD 12/26/2020 Assessment & [...] lisinopril 20 mg qd. -Last visit with golf tournament consultant Dr. Michelle Villasenor MD 12/26/2020 Hypertension 10/02/2017 [...] syndrome 10/02/2017 Claudication 07/02/2013 Depressive disorder 07/02/2013 Resolved Problems Problem Noted Date Diagnosed [...] medication. Proteinuria 07/03/2021 11/26/2023 Smoker 10/02/2017 11/26/2023 Joint pain 07/02/2013 02/03/2025 Encounters Date Type Department Care Team Description 12/13/2024 Refill [facility] [address] [place], [place] [phone] Alfreda Fuller MD Primary hypertension 11/16/2024 Refill [facility] [address] [place] [address] Alfreda Fuller MD Type 2 diabetes mellitus without complication, without long-term current use of insulin ([facility]) from Last 3 Months Immunizations Immunization Administration [...] 02/26/2024, Additional history exists Diabetes: Hemoglobin A1C 04/30/202510/28/ 025, 10/27/2024, 02/26/2024, Additional history exists SDOH [...] 8:20 AM EDT) Creatinine, Urine 98.80 mg/dL [facility] Microalbumin Urine 147.0 mg/L [facility] Microalbum Creatinine Ratio Ur 148.7(H) <30 ug/mg cr [facility] Comment:Albumin/Creatinine R atio Reference Ranges: Normal: < 30 ug/mg creatinine Microalbuminuria: 30 - 300 ug/mg creatinineClinical Albuminuria: > 300 ug/mg creatinine Urine 10/28/2024 8:20 AM EDT 10/28/2024 11:08 AM EDT us Alfreda Fuller MD LAB URINE ORDERABLES Final Result [facility] [address] [place] [phone] * (ABNORMAL) Hemoglobin A1c (10/28/2024 8:20 AM EDT) Hemoglobin A1c 6.4(H) <6.0 % [facility] Comment:Hemoglobin A1C Refer ence Range Adults: 4.8 - 6.0 % Non diabetic: < 6.0 % Goal: < 7.0 %Additional Action Suggested: > 8.0 %Note: Hemoglobin A1c results are invalid for patients with abnormal amounts of HbF. Blood transfusions may impact the HbA1c concentration in the patient sample. Estimated Average Glucose 137 mg/dL [facility] Comment:eAG = Estimated ave rage glucose which is %A1C expressed asaverage glucose, using the formula of the C4Y-CprhltuDscmndd Glucose study (ADAG), Diabetes Care, Vol.31,#8,2007 Blood Venous blood specimen / Unknown 10/28/2024 8:20 AM EDT 10/28/2024 11:22 AM EDT Alfreda Fuller MD LAB BLOOD ORDERABLES Final Result Performing Organization Address [facility] Co de Phone Number [facility] [address] [place] [phone] * (ABNORMAL) Lipid Panel, Standard (10/28/2024 8:20 AM EDT) Triglycerides 87 <150 mg/dL [facility] Comment:Desirable Triglyceri de: less than 150 mg/dLBorderline High Triglyceride 150-199 mg/dLHigh Triglyceride: 200-499 mg/dLVery High Triglyceride: greater than or equal to 5OO mg/dL Cholesterol 103 <200 mg/dL [facility] Comment:Desirable Cholestero l: less than 200 mg/dLBorderline High Cholesterol: 200-239 mg/dLHigh Cholesterol: greater than 239 mg/dL LDL Cholesterol Calculated 48 <100 mg/dL [facility] Comment:Desirable LDL: less than 100 mg/dLNear Optimal/Above Optimal LDL: 110- 129 mg/dLBorderline High LDL: 130-159 mg/dLHigh LDL: 160-189 mg/dLVery High LDL: greater than or equal to 190 mg/dL HDL Cholesterol 38(L) >40 mg/dL [facility] Comment:Desirable HDL: great er than 40 mg/dL Note: This HDL assay may give artificially low results in patients with liver disease. Blood Venous blood specimen / Unknown 10/28/2024 8:20 AM EDT 10/28/2024 11:24 AM EDT Alfreda Fuller MD LAB BLOOD ORDERABLES Final Result Performing Organization Address City/[facility]/ZIP Co de Phone Number [facility] [address] [place] [phone] [phone] * (ABNORMAL) Hm Colonoscopy (07/21/2024) Colonoscopy Abnormal( A) Normal Comment:popylp with Dr. Maciel bello Historical Provider HEALTH MAINTENANCE Final Result * Hepatitis C Viral RNA, Quantitative, Real-Time PCR (12/16/2022 12:25 PM EDT) Hepatitis C Viral Load <15 NOT DETECTED NOT DETECTED IU/mL [facility] HCV Log PCR <1.18 NOT DETECTED NOT DETECTED Log IU/mL [facility] Comment:This test was perfor med using Real-Time Polymerase ChainReaction.Reportable Range: 15 IU/mL to 100,000,000 IU/mL(1.18 Log IU/mL to 8.00 Log IU/mL).The analytical performance characteristics of thisassay have been determined by [employer].The modifications have not been cleared or approved bythe FDA. This assay has been validated pursuant to theCLIA regulations and is used for clinical purposes.For more information on this test, go to:http://education.LYYN/faq/ADG32b0(This link is being provided for informational/educational purposes only.)THIS TEST WAS PERFORMED AT:[facility] [place] [phone] BONNER MD 12/16/2022 12:2 5 PM EDT 12/16/2022 1:09 PM EDT Alfreda Fuller MD LAB BLOOD ORDERABLES Final Result [facility] [address] [place] [phone] [phone] from Last 3 Months or Most Recently Relevant to Health Maintenance [place] [place] [address] DIRECT Advance Directives Documents on File Type Date Recorded Patient Estimate Clerk Expl anation Advance Directives and Living Will 02/26/2024 Health Care Proxy 02/26/24 Care Teams Circuit Walker Relationship Specialty Start Date End Date [place], MD Alfreda [address] [place] [address] PCP - General Family Medicine 04/07/18 Roxanne Pino, HughD [address] [place] [phone] Pharmacist Internal Medicine 04/18/22 Luis M Neal MD [address] [place] [address] [address] [place] [address] Gastroenterology 02/26/24 Nilesh Stout MD [address] [place] [address] Ophthalmology 02/26/24 Jose L Rivers MD [address] [place] [address] Orthopaedic Surgery 12/29/24 Bobbi Valerio MD [facility] 06/08/24
--- OUTSIDE RECORDS SUMMARY | 2025-02-08 07:51 | XMS_ITS | Encounter Summary ---
Author Organization [employer] Address [address] 7t [place] [address] Care Team Providers Care Keycase Assembler Name Role Phone Alfreda Fuller MD Primary Care Provider [phone] Roxanne Pino PharmD Unavailable Luis M Neal MD Unavailable Nilesh Stout MD Unavailable [phone] Jose L Rivers MD Unavailable Encounter Details Date Type Department Care Team (Late st Contact Info) Description 04/23/2022 Abstract [facility] [address] [place] [address] Alfreda Fuller MD [address] [place], [place] [phone] Social History Tobacco Use Types Packs/Day Years [...] on filedocumented in this encounter Care Teams Keycase Assembler Relationship Specialty Start Date End Date Alfreda Fuller MD 230 [place] [address] PCP - General Family Medicine 04/07/18 Roxanne Pino, PharmD [address] [place] [address] Pharmacist Internal Medicine 04/18/22 Luis M Neal MD [address] [place] [address] [address] [place] [address] Gastroenterology 02/26/24 Nilesh Stout MD [address] [place] [address] Ophthalmology 02/26/24 Jose L Rivers MD [address] [place] [address] Orthopaedic Surgery 12/29/24 Bobbi Valerio MD [facility] 06/08/24 documented as of this encounter
--- OUTSIDE RECORDS SUMMARY | 2025-02-08 07:52 | XMS_ITS | Patient Health Record ---
Author Organization [facility] Address [address] [place] [address] Care Team Providers Care Log Deck Tender Name Role Phone Alfreda Fuller MD Primary Care Provider Luis M Spencer Jr Unavailable [phone] Allergies No Known Allergies Results Component Value Reference Range Notes Glucose, Whole Blood Reviewed date:07/22/2024 07:16:32 AM Interpretation: Performing Lab:[facility], [address] [place] [phone] Notes/Report: Glucose, Whole Blood 108 60-115 mg/dL METER # : [id number] Pathology Reviewed date:07/23/2024 08:54:33 AM Interpretation: Performing Lab:[facility], [address] [place] [phone] Notes/Report: Reason For Referral No Information Medications [...] Status Risk Notes Problem Colon cancer screening (058851201) Colon cancer screening (Z12.11) Active confirmed Problem Abnormal feces (996239307) Abnormal findings in stool (R19.5) Active confirmed Problem Long-term current use of antiplatelet drug (391759053054819) Long-term use of aspirin therapy (Z79.82) Active confirmed Vital Signs Blood pressure diastolic 111 mm Hg 06/24/2024 Height 73 in 06/24/2024 Blood pressure systolic 111 mm Hg 06/24/2024 Weight 223 lbs 06/24/2024 BMI 29.42 kg/m2 06/24/2024 Encounters Encounter Location Date Provider Diagnosis [facility] Outpatient [address] [place] [id number] 07/20/2024 Luis M Neal Jr Colon cancer screening Z12.11 ; Personal history of adenomatous and serrated colon polyps Z86.0101 and Colon polyps K63.5 [facility] [address] [place] [phone] 06/24/2024 Luis M Neal Jr Long-term use of aspirin therapy Z79.82 and Colon cancer screening Z12.11 [facility] [address] [place] [phone] 07/15/2024 Luis M Neal Jr [facility] [address] [place] [phone] 07/16/2024 Luis M Neal Jr [facility] [address] [place] [phone] 07/23/2024 Luis M Neal Jr Assessments Encounter [...] Insured Coverage Start Date Coverage End Date [facility] [address] [place] [address] [id number] JELENA PINEDA Self - patient is the [...]
--- OUTSIDE RECORDS SUMMARY | 2025-02-08 07:52 | XMS_ITS | Encounter Summary ---
Author Organization [email or web address] [facility] Address [address] [facility] 7t [place] [address] Care Team Providers Care Laser Beam Color Scanner Operator Name Role Phone Alfreda Fuller MD Primary Care Provider Roxanne Pino PharmD Unavailable Luis M Neal MD Unavailable Nilesh Stout MD Unavailable Jose L Rivers MD Unavailable Reason for Visit * Reason Comments Med Refill Encounter Details Date Type Department Care Team (Late st Contact Info) Description 03/22/2022 Refill [facility] 230 [place] [address] Roxanne Pino, PharmD 230 [place] [address] Primary hypertension (Primary Dx) Social History Tobacco [...] hypertension documented in this encounter Care Teams Laser Beam Color Scanner Operator Relationship Specialty Start Date End Date Alfreda Fuller MD 230 [place] [address] PCP - General Family Medicine 04/07/18 Roxanne Pino, HughD [address] [place] [address] Pharmacist Internal Medicine 04/18/22 Luis M Neal MD [address] [place] [phone] Gastroenterology 02/26/24 Nilesh Stout MD [address] [place] [address] Ophthalmology 02/26/24 Jose L Rivers MD [address] [place] [address] Orthopaedic Surgery 12/29/24 Bobbi Valerio MD [facility] 06/08/24 documented as of this encounter
--- OUTSIDE RECORDS SUMMARY | 2025-02-08 07:52 | XMS_ITS | Clinical Summary ---
Author Organization [facility] Address [address] [facility] [address] [place] [address] Phone Care Team Providers Care Dermatologist Name Role Phone Alfreda Fuller MD Primary [...] complete this topic Insurance Medicaid [place] Care Teams Dermatologist Relationship Specialty Start Date End Date Alfreda Fuller MD PCP - General Family Medicine 06/20/21
--- OUTSIDE RECORDS SUMMARY | 2025-02-08 07:52 | XMS_ITS | Clinical Summary ---
Author Organization [facility] Address [address] [place] [address] [place] [address] Phone Care Team Providers Care Balance Bridge Inspector Name Role Phone [place], Alfreda Almonte MD Primary Care Provi jw [...] [place] [address] [facility]ARE FAM[facility] Care Teams Balance Bridge Inspector Relationship Specialty Start Date End Date [place], Alfreda Almonte MD [address] [place] [address] PCP - General 04/10/17 Additional Source Comments The information contained in this document represents components of the legal health record. It is not the complete legal health record.[facility]
--- OUTSIDE RECORDS SUMMARY | 2025-02-08 07:52 | XMS_ITS | Encounter Summary ---
Author Organization [facility] Address [address] [place] [address] Phone Care Team Providers Care Biodiesel Plant Manager Name Role Phone Ernest, Alfreda Almonte MD Primary Care Provi jw Encounter Details Date Type Department Care Team (Latest Contact Info) Description 05/27/2017 Ancillary Orders [facility] [address] [place] [address] Kenna Sanchez MD [address] [address] Atrial fibrillation, unspecified type Social History Tobacco [...] type documented in this encounter Care Teams Biodiesel Plant Manager Relationship Specialty Start Date End Date Ernest, Alfreda Almonte MD [address] [place] [address] PCP - General 04/10/17 documented as of this encounter Additional Source Comments The information contained in this document represents components of the legal health record. It is not the complete legal health record.[facility]
--- OUTSIDE RECORDS SUMMARY | 2025-02-08 07:52 | XMS_ITS | Encounter Summary ---
Author Organization [email or web address] Address [address] [facility] 7t [place] [address] Care Team Providers Care Content Strategist Name Role Phone Alfreda Fuller MD Primary Care Provider [phone] Roxanne Pino PharmD Unavailable [phone] Luis M Neal MD Unavailable [phone] Nilesh Stout MD Unavailable [phone] Jose L Rivers MD Unavailable Encounter Details Date Type Department Care Team (Late st Contact Info) Description 02/21/2023 Abstract [facility] 230 [place] [address] Jesusita Aguilar Social History Tobacco Use Types [...] documented as of this encounter Care Teams Content Strategist Relationship Specialty Start Date End Date Alfreda Fuller MD 230 [place] [address] PCP - General Family Medicine 04/07/18 Roxanne Pino, PharmD 230 [place] [address] Pharmacist Internal Medicine 04/18/22 Luis M Neal MD [address] [place] [address] [address] [place] [address] Gastroenterology 02/26/24 Nilesh Stout MD [address] [place] [address] Ophthalmology 02/26/24 Jose L Rivers MD [address] [place] [address] Orthopaedic Surgery 12/29/24 Bobbi Valerio MD [facility] Cardiology 06/08/24 documented as of this encounter
--- OUTSIDE RECORDS SUMMARY | 2025-02-08 07:52 | XMS_ITS | Encounter Summary ---
Author Organization [employer] Address [address] [facility] 7t [place] [address] Care Team Providers Care Counter Pocket Trimmer Name Role Phone Alfreda Fuller MD Primary Care Provider + [phone] Roxanne Pino PharmD Unavailable Luis M Neal MD Unavailable [phone] Nilesh Stout MD Unavailable [phone] Jose L Rivers MD Unavailable Encounter Details Date Type Department Care Team (Late st Contact Info) Description 04/15/2022 Orders Only [facility] [address] [place] [address] Halie Tay LPN Social History Tobacco Use [...] on filedocumented in this encounter Care Teams Counter Pocket Trimmer Relationship Specialty Start Date End Date Alfreda Fuller MD 230 [place] [address] PCP - General Family Medicine 04/07/18 Roxanne Pino, HughD 230 [place] [address] Pharmacist Internal Medicine 04/18/22 Luis M Neal MD [address] [facility] [address] [place] [phone] Gastroenterology 02/26/24 Nilesh Stout MD [address] [place] [address] Ophthalmology 02/26/24 Jose L Rivers MD [address] [place] [address] Orthopaedic Surgery 12/29/24 Bobbi Valerio MD [facility] Cardiology 06/08/24 documented as of this encounter
--- OUTSIDE RECORDS SUMMARY | 2025-02-08 07:52 | XMS_ITS | Encounter Summary ---
Author Organization [employer] Address [address] [facility] 7t [place] [address] Care Team Providers Care Client Project Coordinator Name Role Phone Alfreda Fuller MD Primary Care Provider Roxanne Pino PharmD Unavailable [phone] Luis M Neal MD Unavailable [phone] Nilesh Stout MD Unavailable [phone] Jose L Rivers MD Unavailable Encounter Details Date Type Department Care Team (Late st Contact Info) Description 03/22/2022 Orders Only [facility] [address] [place] [address] Halie Tay LPN Social History Tobacco Use [...] on filedocumented in this encounter Care Teams Client Project Coordinator Relationship Specialty Start Date End Date Alfreda Fuller MD 230 [place], [place] [phone] PCP - General Family Medicine 04/07/18 Roxanne Pino, PharmD 230 [place], [place] [phone] Pharmacist Internal Medicine 04/18/22 Luis M Neal MD [address] [facility] [address] [place] [address] Gastroenterology 02/26/24 Nilesh Stout MD [address] [place] [address] Ophthalmology 02/26/24 Jose L Rivers MD [address] [place] [address] Orthopaedic Surgery 12/29/24 Bobbi Valerio MD [facility] Cardiology 06/08/24 documented as of this encounter
--- OUTSIDE RECORDS SUMMARY | 2025-02-08 07:52 | XMS_ITS | Encounter Summary ---
Author Organization [employer] Address [address] [facility] 7t [place] [address] Care Team Providers Care Program Clinician Name Role Phone Alfreda Fuller MD Primary Care Provider Roxanne Pino PharmD Unavailable Luis M Neal MD Unavailable [phone] Nilesh Stout MD Unavailable [phone] oJse L Rivers MD Unavailable Encounter Details Date Type Department Care Team (Late st Contact Info) Description 11/05/2022 Abstract [facility] 230 [place] [address] Alfreda Fuller MD 230 [place] [address] Social History Tobacco Use Types Packs/Day Years [...] on filedocumented in this encounter Care Teams Program Clinician Relationship Specialty Start Date End Date Alfreda Fuller MD [address] [place] [address] PCP - General Family Medicine 04/07/18 Roxanne Pino PharmD 230 [place] [address] Pharmacist Internal Medicine 04/18/22 Luis M Neal MD [address] [facility] [address] [place] [phone] Gastroenterology 02/26/24 Nilesh Stout MD [address] [place] [address] Ophthalmology 02/26/24 Jose L Rivers MD [address] [place] [address] Orthopaedic Surgery 12/29/24 Bobbi Valerio MD [facility] Cardiology 06/08/24 documented as of this encounter
--- NOTE | 2025-02-08 07:53 | A.OFFVIS_ITS ---
Intake Visit Reasons: INJ- RT KNEE EUFLEXXA #2 Intake Note: Donnie is a 64 year old male who presents today for an injection in his right knee, EUFLEXXA #2. He states that he got mild relief from the 1st injection. He continues with his home exercise program. Allergies No Known Allergies Allergy (Verified 02/08/25 07:57) Medication List - Last Reconciled 02/08/25 by Jose L Rivers MD amlodipine 5 mg PO DAILY aspirin 81 mg PO DAILY atorvastatin 40 mg PO BEDTIME empagliflozin (Jardiance) 25 mg PO DAILY lisinopril 40 mg PO DAILY metoprolol succinate ER 25 mg PO DAILY [facility] Medical History (Updated 12/29/24 @ 09:16 by Jose L Rivers MD) Chronic renal insufficiency Diabetes COPD (chronic obstructive pulmonary disease) MARCOS (obstructive sleep apnea) History of hepatitis C Tubular adenoma of colon (~2018) Personal history of nicotine dependence Atrial fibrillation HTN (hypertension) Surgical History History of liver biopsy History of nasal surgery History of colonoscopy History of cardiac radiofrequency ablation Social History (Updated 07/16/24 @ 12:29 by Candie Huston RN) Household Members Other:: roommate Are you a primary landcare facilitator to a significant other at home: No Do you presently have visiting nurse or other home services: No Patient Tobacco Use Status: Former Tobacco user Tobacco use type: Cigarette Cigarettes Per Day: 30 Physical Exam Extrem Other: Right knee examination shows a minimal effusion, palpable crepitus with range of motion, pain with range of motion, no instability Office Procedures AMB Joint Injection/Aspiration Joint Injection/Aspiration Primary Site: right knee Prep: site was prepped using aseptic technique Injected: 20 mg of (Euflexxa viscosupplementation), with 4 mL of and 1% plain lidocaine Procedure: The patient tolerated the procedure well Coding 61750 - Large joint Procedure code (CPT) selection complete Assessment & Plan Assessment & Plan (1) Osteoarthritis of right knee: Code(s): M17.11 - Unilateral primary osteoarthritis, right knee Category: Medical Plan Mr. Hogan presents with right knee pain due to osteoarthritis. The risks and benefits of a 2nd Euflexxa injection were discussed at length with the patient. The patient wished to proceed. He tolerated the injection well. He will continue with his home exercise program. He will follow up next week as scheduled. Feel free to call me at any time should questions regarding his orthopedic management arise. Orders: Orders AMB Joint Injection/Aspiration Today M17.11 - Unilateral primary osteoarthritis, right knee Coding Level of Care Code Procedure Only Diagnoses Osteoarthritis of right knee M17.11 CPT Codes Coding - 66427 Large joint: 43657 - Large joint ([id number])
== END 2025-02-08 08:06 | disposition home or self-care (01) ==
LOC: HO.HOS 07:49
PROVIDERS: PCP Family Medicine; Visit Provider Orthopaedic Surgery
DX: M17.11 Unilateral primary osteoarthritis, right knee (principal)
CPT/HCPCS: 20610

== ENCOUNTER → 2025-02-08 07:49 | Outpatient (BNVA) | payer OTHER, SELFPAY | PROVIDERS: PCP Family Medicine; Visit Provider Orthopaedic Surgery | DX: M17.11 Unilateral primary osteoarthritis, right knee (principal); M25.561 Pain in right knee | CPT/HCPCS: 20610; J2003; J7323 ==

== ENCOUNTER 2025-02-15 08:28 | Outpatient (AMB) | payer OTHER, SELFPAY ==
--- OUTSIDE RECORDS SUMMARY | 2023-10-13 04:20 | XMS_ITS ---
Author Organization [facility] Address [address] [place] [phone] Care Team Providers Care Risk Adjustment Specialist Name Role Phone Alina FOX, Alfreda Primary Care Provider Misty andrewilaLuis M Crum Jr REASON FOR VISIT Patient presents today for a SCREENING COLON Encounters Encounter Location Date Provider Diagnosis [facility] [address] [place] [phone] 10/13/2023 Luis M Neal Jr Plan Of Treatment No Information Progress Notes * YISSEL PINEDAHDOB: [birth year] (64 yo M)Acc No.[id number]:10/13/2023 Progress Notes Patient: JELENA BRASWELL Provider: Eugene Neal MD :1960 A ge:63 Y S ex:Male Date:10/13/2023 Address:[address] [place], [place] [phone] Pcp:Alfreda Fuller MD Subjective: * Chief Complaints: * 1 . Patient presents today for a SCREENING COLON. * Medical History: Objective: * Vitals: Assessment: Plan: * Treatment: * * The named appointment provid er may or may not be the originator of this progress note, and it is not deemed complete until electronically signed by the appointment provider. Sign off status: Pending * Provider: Eugene Neal MD Date: 0 10/13/2023 Generated for Waynei ng/Faasterg/eTransmitting on: 04/17/2024 08:43 AM EST
--- OUTSIDE RECORDS SUMMARY | 2024-07-20 04:10 | XMS_ITS ---
Author Organization [facility] Address [address] [place] [phone] Care Team Providers Care Electrical Installation Supervisor Name Role Phone Alina FOX, Alfreda Primary Care Provider Misty Luis M Collazo Jr Unavailable [phone] REASON FOR VISIT screening Encounters Encounter Location Date Provider Diagnosis [facility] [place] [address] [place], [place] [phone] 07/20/2024 Luis M Neal Jr Colon cancer [...] * YISSEL PINEDAHDOB: [birth year] (64 yo M)Acc No.[id number]:07/20/2024 COLON WITH MAC Patient: JELENA BRASWELL Provider: Eugene Neal MD :1960 A ge:63 Y S ex:Male Date:07/20/2024 Address:[address] [place], [place] [phone] Pcp:Alfreda Fuller MD Subjective: * Chief Complaints: [...] 07/20/2024 Generated for Shayna crowley/Edward/Ravindraitting on: 1 04/17/2024 08:43 AM EST
[2025-02-15 08:36] VITALS: BMI 32.5
--- NOTE | 2025-02-15 08:36 | MHC.OFFVIS ---
Vital Signs 02/15/25 08:36 Height 6 ft Weight 240 lb BMI 32.5 Intake Visit Reasons: INJ- RT KNEE EUFLEXXA #3 Intake Note: Donnie is a 64 year old male who presents today for an injection in his right knee, EUFLEXXA #3. He states that he has gotten mild relief from the 1st 2 injections. He continues with his home exercise program. Allergies No Known Allergies Allergy (Verified 02/15/25 08:36) Medication List - Last Reconciled 02/15/25 by Jose L Rivers MD amlodipine 5 mg PO DAILY aspirin 81 mg PO DAILY atorvastatin 40 mg PO BEDTIME empagliflozin (Jardiance) 25 mg PO DAILY lisinopril 40 mg PO DAILY metoprolol succinate ER 25 mg PO DAILY [facility] Medical History Chronic renal insufficiency Diabetes COPD (chronic obstructive pulmonary disease) MARCOS (obstructive sleep apnea) History of hepatitis C Tubular adenoma of colon (~2019) Personal history of nicotine dependence Atrial fibrillation HTN (hypertension) Surgical History History of liver biopsy History of nasal surgery History of colonoscopy History of cardiac radiofrequency ablation Social History Household Members Other:: roommate Are you a primary pet care associate to a significant other at home: No Do you presently have visiting nurse or other home services: No Patient Tobacco Use Status: Former Tobacco user Tobacco use type: Cigarette Cigarettes Per Day: 30 Physical Exam Vital Signs: BMI result Body Mass Index 32.5 Extrem Other: Right knee examination shows a minimal effusion, palpable crepitus with range of motion, pain with range of motion, no instability Office Procedures AMB Joint Injection/Aspiration Joint Injection/Aspiration Primary Site: right knee Prep: site was prepped using aseptic technique Injected: 20 mg of (Euflexxa viscosupplementation), with 4 mL of and 1% plain lidocaine Procedure: The patient tolerated the procedure well Coding 65388 - Large joint Procedure code (CPT) selection complete Assessment & Plan Assessment & Plan (1) Osteoarthritis of right knee: Code(s): M17.11 - Unilateral primary osteoarthritis, right knee Category: Medical Plan Mr. Hogan presents with right knee pain due to osteoarthritis. The risks and benefits of a 3rd Euflexxa injection were discussed at length with the patient. The patient wished to proceed. He tolerated the injection well. He will continue with his home exercise program. He will contact me prior to his follow-up appointment in 3 months should any questions or concerns arise. Feel free to call me at any time should questions regarding his orthopedic management arise. Orders: Orders AMB Joint Injection/Aspiration Today M17.11 - Unilateral primary osteoarthritis, right knee Coding Level of Care Code Procedure Only Diagnoses Osteoarthritis of right knee M17.11 CPT Codes Coding - 21810 Large joint: 11787 - Large joint ([id number])
--- OUTSIDE RECORDS SUMMARY | 2025-02-15 08:43 | XMS_ITS | Encounter Summary ---
Author Organization [employer] Address 75 [facility] 7t [place] [address] Care Team Providers Care Fur Tailor Name Role Phone Alfreda Fuller MD Primary Care Provider + [phone] Roxanne Pino PharmD Unavailable Luis M Neal MD Unavailable [phone] Nilesh Stout MD Unavailable [phone] Jose L Rivers MD Unavailable Encounter Details Date Type Department Care Team (Late st Contact Info) Description 04/15/2022 Orders Only [facility] [address] [place] [address] Halie Tay LPN Social History Tobacco Use [...] on filedocumented in this encounter Care Teams Fur Tailor Relationship Specialty Start Date End Date Alfreda Fuller MD 230 [place] [address] PCP - General Family Medicine 04/07/18 Roxanne Pino, HughD 230 [place] [address] Pharmacist Internal Medicine 04/18/22 Luis M Neal MD [address] [facility] [address] [place] [phone] Gastroenterology 02/26/24 Nilesh Stout MD [address] [place] [address] Ophthalmology 02/26/24 Jose L Rivers MD [address] [place] [address] Orthopaedic Surgery 12/29/24 Bobbi Valerio MD [facility] Cardiology 06/08/24 documented as of this encounter
--- OUTSIDE RECORDS SUMMARY | 2025-02-15 08:43 | XMS_ITS | Encounter Summary ---
Author Organization [facility] Address [address] [place] [address] Phone Care Team Providers Care Extension Work Director Name Role Phone Alfreda Fuller MD Primary Care Provi jw Encounter Details Date Type Department Care Team ([facility] st Contact Info) Description 05/27/2017 Ancillary [facility] [address] [place] [address] Kenna Sanchez MD [address] [place] [address] Social History Tobacco Use Types Packs/Day Years [...] on filedocumented in this encounter Care Teams Extension Work Director Relationship Specialty Start Date End Date Alfreda Fuller MD [address] [place] [address] PCP - General 04/10/17 documented as of this encounter Additional Source Comments The information contained in this document represents components of the legal health record. It is not the complete legal health record.[facility]
--- OUTSIDE RECORDS SUMMARY | 2025-02-15 08:43 | XMS_ITS | Encounter Summary ---
Author Organization [employer] Address [address] [facility] 7t [place] [address] Care Team Providers Care Library Technician Name Role Phone Alfreda Fuller MD Primary Care Provider [phone] Roxanne Pino PharmD Unavailable Luis M Neal MD Unavailable [phone] Nilesh Stout MD Unavailable [phone] Jose L Rivers MD Unavailable Encounter Details Date Type Department Care Team (Late st Contact Info) Description 04/23/2022 Abstract [facility] 230 [place] [address] Alfreda Fuller MD 230 [place], [place] [phone] Social History Tobacco Use Types Packs/Day Years [...] on filedocumented in this encounter Care Teams Library Technician Relationship Specialty Start Date End Date Alfreda Fuller MD 230 [place] [address] PCP - General Family Medicine 04/07/18 Roxanne Pino, PharmD 230 [place] [address] Pharmacist Internal Medicine 04/18/22 Luis M Neal MD [address] [place] [address] [address] [place] [address] Gastroenterology 02/26/24 Nilesh Stout MD [address] [place] [address] Ophthalmology 02/26/24 Jose L Rivers MD [address] [place] [address] Orthopaedic Surgery 12/29/24 Bobbi Valerio MD [facility] Cardiology 06/08/24 documented as of this encounter
--- OUTSIDE RECORDS SUMMARY | 2025-02-15 08:43 | XMS_ITS | Encounter Summary ---
Author Organization [facility] [facility] Address [address] [facility] 7t [place] [address] Care Team Providers Care Sign Maker Name Role Phone Alfreda Fuller MD Primary Care Provider Roxanne Pino PharmD Unavailable Luis M Neal MD Unavailable Nilesh Stout MD Unavailable [phone] Jose L Rivers MD Unavailable Reason for Visit * Reason Comments Med Refill Encounter Details Date Type Department Care Team (Late st Contact Info) Description 03/22/2022 Refill [facility] 230 [place] [address] Roxanne Pino, PharmD 230 [place] [address] Primary hypertension (Primary Dx) Social History Tobacco [...] hypertension documented in this encounter Care Teams Sign Maker Relationship Specialty Start Date End Date Alfreda Fuller MD 230 [place] [address] PCP - General Family Medicine 04/07/18 Roxanne Pino, HughD 230 [place] [address] Pharmacist Internal Medicine 04/18/22 Luis M Neal MD [address] [facility] [address] [address] [place] [phone] Gastroenterology 02/26/24 Nilesh Stout MD [address] [place] [address] Ophthalmology 02/26/24 Jose L Rivers MD [address] [place] [address] Orthopaedic Surgery 12/29/24 Bobbi Valerio MD [facility] Cardiology 06/08/24 documented as of this encounter
--- OUTSIDE RECORDS SUMMARY | 2025-02-15 08:43 | XMS_ITS | Clinical Summary ---
Author Organization [employer] Address [address] [facility] 7t [place] [address] Care Team Providers Care Software Engineering Project Manager Name Role Phone Alfreda Fuller MD Primary Care Provider [phone]- [phone] Roxanne Pino PharmD Unavailable Luis M Neal MD Unavailable [phone] Nilesh Stout MD Unavailable [phone] Jose L Rivers MD Unavailable Allergies No [...] care followed by Dr. Nilesh Stout of [facility], encouraged to schedule visit 11/06/2022 -dental home is [facility] -health care proxy given and filed 02/26/24 Assessment & Plan (10/27/2024 11:54 AM EDT): -next comprehensive annual evaluation due after 06/10/2024 -eye care followed by Dr. Nilesh Stout of [facility], encouraged to schedule visit 11/06/2022 -dental home is [facility] -health care proxy given and filed 02/26/24 Assessment & Plan (06/11/2023 10:42 AM EST): -next physical exam due after 06/10/2024 -eye care followed by Dr. Nilesh Stout of [facility], encouraged to schedule visit 11/06/2022 -dental home is [facility] Assessment & Plan (12/16/2022 11:34 AM EDT): -next physical exam due after 11/15/2022. -eye care followed by Dr. Nilesh Stout of [facility], encouraged to schedule visit 11/06/2022. [...] as pharmacomtherapy, [facility], and [facility] pharmacy smoking cessation clinic. Pt declined [...] as pharmacomtherapy, [facility] smoking [facility], and [facility] pharmacy smoking cessation clinic. Pt declined [...] as pharmacomtherapy, [facility] smoking [facility], and [facility] pharmacy smoking cessation clinic. Pt declined [...] as pharmacomtherapy, [facility] smoking [facility], and [facility] pharmacy smoking cessation clinic Discussed USPSTF [...] Neal -Referral place 06/11/2023 -Had appt. at [facility] on 10/13/23, pt reports he missed it due to insurance -Colonoscopy with Dr. Neal 07/20/24, hyperplastic polyp Assessment & Plan (02/26/2024 9:30 AM EST): -Tubular adenoma on colonoscopy 10/[address] Neal -Referral place 06/11/2023 -Had appt. at [facility] on 10/13/23, pt reports he missed it due to insurance -referred again to GI, Dr. Neal 02/26/24 Assessment & Plan (06/11/2023 10:24 AM EST): -Tubular adenoma on colonoscopy 10/[address] Neal -Referral place 06/11/2023 Assessment & Plan (12/16/2022 11:13 AM EDT): Tubular adenoma on colonoscopy 10/[address] Neal Hepatitis C antibody test positive 07/03/2021 Stage 3a chronic kidney disease ([facility]CC) 2021 Overview (02/26/2024): Lab Results Component Value [...] exam: followed by Dr. Nilesh Stout of [facility]. -Diabetic foot exam: Done 02/26/24 [...] exam: followed by Dr. Nilesh Stout of [facility]. -Diabetic foot exam: Done 02/26/24 [...] exam: followed by Dr. Nilesh Stout of [facility]. -Diabetic foot exam: Done 02/26/24 [...] exam: followed by Dr. Nilesh Stout of [facility]. -Diabetic foot exam: Done 12/16/2022. [...] exam: followed by Dr. Nilesh Stout of [facility]. -Diabetic foot exam: Done 12/16/2022. [...] Metoprolol ER 25mg daily -Last visit with svp digital sales MD [facility] 08/18/23, echo ordered, follow up 6 months [...] Metoprolol ER 25mg daily -Last visit with svp digital sales MD [facility] 08/18/23, echo ordered, follow up 6 months [...] Metoprolol ER 25mg daily -Last visit with svp digital sales Dr. Bobbi Valerio MD [facility] 08/18/23, [...] lisinopril 20 mg qd. -Last visit with sv[employer] digital sales Dr. Michelle Villasenor MD 12/26/2020 Assessment & [...] lisinopril 20 mg qd. -Last visit with sv[employer] digital [employer] Dr. Michelle Villasenor MD 12/26/2020 Hypertension 10/02/2017 [...] Obstructive sleep apnea syndrome 10/02/2017 Claudication 07/02/2013 Recurrent major depressive disorder, in partial remission 07/02/2013 Resolved Problems Problem Noted Date Diagnosed [...] Type Department Care Team Description 12/13/2024 Refill [facility] [address] [place] [address] Alfreda Fuller MD Primary hypertension 11/16/2024 Refill [facility] [address] [place] [address] Alfreda Fuller MD Type 2 diabetes mellitus without complication, without long-term current use of insulin ([facility]) from Last 3 Months Immunizations Immunization Administration [...] complication, without long-term current use of insulin ([facility]/HCC) HEMOGLOBIN A1C Routine 10/28/2024 8:20 AM EDT [...] 8:20 AM EDT) Creatinine, Urine 98.80 mg/dL [facility] Microalbumin Urine 147.0 mg/L [facility] Microalbum Creatinine Ratio Ur 148.7(H) <30 ug/mg cr [facility] Comment:Albumin/Creatinine R atio Reference Ranges: Normal: < 30 ug/mg creatinine Microalbuminuria: 30 - 300 ug/mg creatinineClinical Albuminuria: > 300 ug/mg creatinine Urine 10/28/2024 8:20 AM EDT 10/28/2024 11:08 AM EDT Alfreda Fuller MD LAB URINE ORDERABLES Final Result Performing Organization Address City/State/[facility] Co de Phone Number [facility] [address] [place] [phone] * (ABNORMAL) Hemoglobin A1c (10/28/2024 8:20 AM EDT) Hemoglobin A1c 6.4(H) <6.0 % [facility] Comment:Hemoglobin A1C Refer ence Range Adults: 4.8 - 6.0 % Non diabetic: < 6.0 % Goal: < 7.0 %Additional Action Suggested: > 8.0 %Note: Hemoglobin A1c results are invalid for patients with abnormal amounts of HbF. Blood transfusions may impact the HbA1c concentration in the patient sample. Estimated Average Glucose 137 mg/dL [facility] Comment:eAG = Estimated ave rage glucose which is %A1C expressed asaverage glucose, using the formula of the [id number]-DqechfkAedxvwe Glucose study (ADAG), Diabetes Care, Vol.31,#8,Nov. 2007 Blood Venous blood specimen / Unknown 10/28/2024 8:20 AM EDT 10/28/2024 11:22 AM EDT Alfreda Fuller MD LAB BLOOD ORDERABLES Final Result Performing Organization Address [facility] Co de Phone Number [facility] [address] [place] [address] [phone] * (ABNORMAL) Lipid Panel, Standard (10/28/2024 8:20 AM EDT) Triglycerides 87 <150 mg/dL [facility] Comment:Desirable Triglyceri de: less than 150 mg/dLBorderline High Triglyceride 150-199 mg/dLHigh Triglyceride: 200-499 mg/dLVery High Triglyceride: greater than or equal to 5OO mg/dL Cholesterol 103 <200 mg/dL [facility] Comment:Desirable Cholestero l: less than 200 mg/dLBorderline High Cholesterol: 200-239 mg/dLHigh Cholesterol: greater than 239 mg/dL LDL Cholesterol Calculated 48 <100 mg/dL [facility] Comment:Desirable LDL: less than 100 mg/dLNear Optimal/Above Optimal LDL: 110- 129 mg/dLBorderline High LDL: 130-159 mg/dLHigh LDL: 160-189 mg/dLVery High LDL: greater than or equal to 190 mg/dL HDL Cholesterol 38(L) >40 mg/dL [facility] Comment:Desirable HDL: great er than 40 mg/dL Note: This HDL assay may give artificially low results in patients with liver disease. Blood Venous blood specimen / Unknown 10/28/2024 8:20 AM EDT 10/28/2024 11:24 AM EDT Alfreda Fuller MD LAB BLOOD ORDERABLES Final Result Performing Organization Address [facility]/ZIP Co de Phone Number [facility] [address] [place] [address] [phone] * (ABNORMAL) Hm Colonoscopy (07/21/2024) Colonoscopy Abnormal( A) Normal Comment:popylp with Dr. Maciel bello Historical Provider HEALTH MAINTENANCE Final Result * Hepatitis C Viral RNA, Quantitative, Real-Time PCR (12/16/2022 12:25 PM EDT) Hepatitis C Viral Load <15 NOT DETECTED NOT DETECTED IU/mL [facility] HCV Log PCR <1.18 NOT DETECTED NOT DETECTED Log IU/mL [facility] Comment:This test was perfor med using Real-Time Polymerase ChainReaction.Reportable Range: 15 IU/mL to 100,000,000 IU/mL(1.18 Log IU/mL to 8.00 Log IU/mL).The analytical performance characteristics of thisassay have been determined by [employer].The modifications have not been cleared or approved bythe FDA. This assay has been validated pursuant to theCLIA regulations and is used for clinical purposes.For more information on this test, go to:http://education.Exec/faq/QMU07v3(This link is being provided for informational/educational purposes only.)THIS TEST WAS PERFORMED AT:[employer] [place] [id number] BONNER MD 12/16/2022 12:2 5 PM EDT 12/16/2022 1:09 PM EDT Alfreda Fuller MD LAB BLOOD ORDERABLES Final Result [facility] [address] [place] [address] [phone] from Last 3 Months or Most Recently Relevant to Health Maintenance [place] [address] [place] [id number] DIRECT Advance Directives Documents on File Type Date Recorded Patient Home Care Companion Expl anation Advance Directives and Living Will 02/26/2024 Health Care Proxy 02/26/24 Care Teams Software Engineering Project Manager Relationship Specialty Start Date End Date Sandy, MD Alfreda [address] [place] [address] PCP - General Family Medicine 04/07/18 Roxanne Pino, HughD [address] [place] [address] Pharmacist Internal Medicine 04/18/22 Luis M Neal MD [address] [place] [address] [address] [place] [phone] Gastroenterology 02/26/24 Nilesh Stout MD [address] [place] [address] Ophthalmology 02/26/24 Jose L Rivers MD [address] [place] [address] Orthopaedic Surgery 9/24/25 Bobbi Valerio MD [facility] 06/08/24
--- OUTSIDE RECORDS SUMMARY | 2025-02-15 08:43 | XMS_ITS | Encounter Summary ---
Author Organization [employer] Address [address] [facility] 7t [place] [address] Care Team Providers Care Call Center Consultant Name Role Phone Alfreda Fuller MD Primary Care Provider Roxanne Pino PharmD Unavailable Luis M Neal MD Unavailable [phone] Nilesh Stout MD Unavailable [phone] Jose L Rivers MD Unavailable Encounter Details Date Type Department Care Team (Late st Contact Info) Description 03/22/2022 Orders Only [facility] [address] [place] [address] Halie Tay LPN Social History Tobacco Use [...] on filedocumented in this encounter Care Teams Call Center Consultant Relationship Specialty Start Date End Date Alfreda Fuller MD [address] [place], [place] [phone] PCP - General Family Medicine 04/07/18 Roxanne Pino, PharmD [address] [place], [place] [phone] Pharmacist Internal Medicine 04/18/22 Luis M Neal MD [address] [place] [phone] Gastroenterology 02/26/24 Nilesh Stout MD [address] [place] [address] Ophthalmology 02/26/24 Jose L Rivers MD [address] [place] [address] Orthopaedic Surgery 12/29/24 Bobbi Valerio MD [facility] 06/08/24 documented as of this encounter
--- OUTSIDE RECORDS SUMMARY | 2025-02-15 08:43 | XMS_ITS | Clinical Summary ---
Author Organization [facility] Address [address] [place] [address] [place] [phone] Phone Care Team Providers Care Presetter Operator Name Role Phone [place], Alfreda Almonte MD Primary Care Provi jw [...] [place] [address] [facility] Care Teams Presetter Operator Relationship Specialty Start Date End Date Dilworth, Alfreda Almonte MD [address] [place] [address] PCP - General 04/10/17 Additional Source Comments The information contained in this document represents components of the legal health record. It is not the complete legal health record.[facility]
--- OUTSIDE RECORDS SUMMARY | 2025-02-15 08:44 | XMS_ITS | Patient Health Record ---
Author Organization [facility] Address [address] [place] [address] Care Team Providers Care Cost Accounting Analyst Name Role Phone Alfreda Fuller MD Primary Care Provider Luis M Spencer Jr Unavailable Allergies No Known Allergies Results Component Value Reference Range Notes Glucose, Whole Blood Reviewed date:07/22/2024 07:16:32 AM Interpretation: Performing Lab:[facility], [address] [place] [id number] Notes/Report: Glucose, Whole Blood 108 60-115 mg/dL METER # : [id number] Pathology Reviewed date:07/23/2024 08:54:33 AM Interpretation: Performing Lab:[facility], [address] [place] [id number] Notes/Report: Reason For Referral No Information Medications [...] Status Risk Notes Problem Colon cancer screening (027492526) Colon cancer screening (Z12.11) Active confirmed Problem Abnormal feces (365205028) Abnormal findings in stool (R19.5) Active confirmed Problem Long-term current use of antiplatelet drug (431368391087173) Long-term use of aspirin therapy (Z79.82) Active confirmed Vital Signs Blood pressure diastolic 111 mm Hg 06/24/2024 Height 73 in 06/24/2024 Blood pressure systolic 111 mm Hg 06/24/2024 Weight 223 lbs 06/24/2024 BMI 29.42 kg/m2 06/24/2024 Encounters Encounter Location Date Provider Diagnosis [facility] [address] [place] [phone] 07/20/2024 Luis M Neal Jr Colon cancer screening Z12.11 ; Personal history of adenomatous and serrated colon polyps Z86.0101 and Colon polyps K63.5 [facility] [address] [place] [phone] 06/24/2024 Luis M Neal Jr Long-term use of aspirin therapy Z79.82 and Colon cancer screening Z12.11 [facility] [address] [place] [phone] 07/15/2024 Luis M Neal Jr [facility] [address] [place] [phone] 07/16/2024 Luis M Neal Jr [facility] [address] [place] [phone] 07/23/2024 Luis M Neal Jr Assessments Encounter [...] Insured Coverage Start Date Coverage End Date [facility] [address] [place] [address] [id number] JELENA PINEDA Self - patient is the [...]
--- OUTSIDE RECORDS SUMMARY | 2025-02-15 08:44 | XMS_ITS | Encounter Summary ---
Author Organization [facility] Address [address] [place] [address] Phone Care Team Providers Care High Risk Case Manager Name Role Phone [place], Alfreda Almonte MD Primary Care Provi jw Encounter Details Date Type Department Care Team (Latest Contact Info) Description 05/27/2017 Ancillary Orders [facility] [address] [place] [address] Kenna Sanchez MD [address] [address] Atrial fibrillation, unspecified type Social History Tobacco [...] type documented in this encounter Care Teams High Risk Case Manager Relationship Specialty Start Date End Date Alina, Alfreda Almonte MD [address] [place] [address] PCP - General 04/10/17 documented as of this encounter Additional Source Comments The information contained in this document represents components of the legal health record. It is not the complete legal health record.[facility]
--- OUTSIDE RECORDS SUMMARY | 2025-02-15 08:44 | XMS_ITS | Encounter Summary ---
Author Organization [employer] Address [address] [facility] 7t [place] [address] Care Team Providers Care Concrete Building Assembler Name Role Phone Alfreda Fuller MD Primary Care Provider Roxanne Pino PharmD Unavailable Luis M Neal MD Unavailable [phone] Nilesh Stout MD Unavailable [phone] Jose L Rivers MD Unavailable Encounter Details Date Type Department Care Team (Late st Contact Info) Description 11/05/[address] [facility] [address] [place] [address] Alfreda Fuller MD [address] [place] [address] Social History Tobacco Use Types Packs/Day Years [...] on filedocumented in this encounter Care Teams Concrete Building Assembler Relationship Specialty Start Date End Date Alfreda Fuller MD [address] [place] [address] PCP - General Family Medicine 04/07/18 Roxanne Pino PharmD [address] [place] [address] Pharmacist Internal Medicine 04/18/22 Luis M Neal MD [address] [place] [phone] Gastroenterology 02/26/24 Nilesh Stout MD [address] [place] [address] Ophthalmology 02/26/24 Jose L Rivers MD [address] [place] [address] Orthopaedic Surgery 12/29/24 Bobbi Valerio MD [facility] 06/08/24 documented as of this encounter
--- OUTSIDE RECORDS SUMMARY | 2025-02-15 08:44 | XMS_ITS | Encounter Summary ---
Author Organization [employer] Address [address] [facility] 7t [place] [address] Care Team Providers Care Warehouse Delivery Driver Name Role Phone Alfreda Fuller MD Primary Care Provider [phone] Roxanne Pino PharmD Unavailable [phone] Luis M Neal MD Unavailable [phone] Nilesh Stout MD Unavailable [phone] Jose L Rivers MD Unavailable Encounter Details Date Type Department Care Team (Late st Contact Info) Description 02/21/2023 Abstract [facility] [address] [place] [address] Jesusita Aguilar Social History Tobacco Use Types [...] documented as of this encounter Care Teams Warehouse Delivery Driver Relationship Specialty Start Date End Date Alfreda Fuller MD [address] [place] [address] PCP - General Family Medicine 04/07/18 Roxanne Pino, PharmD [address] [place] [address] Pharmacist Internal Medicine 04/18/22 Luis M Neal MD [address] [place] [address] [address] [place] [address] Gastroenterology 02/26/24 Nilesh Stout MD [address] [place] [address] Ophthalmology 02/26/24 Jose L Rivers MD [address] [place] [address] Orthopaedic Surgery 12/29/24 Bobbi Valerio MD [facility]iology 06/08/24 documented as of this encounter
== END 2025-02-15 08:40 | disposition home or self-care (01) ==
LOC: HO.HOS 08:29
PROVIDERS: PCP Family Medicine; Visit Provider Orthopaedic Surgery
DX: M17.11 Unilateral primary osteoarthritis, right knee (principal)
CPT/HCPCS: 20610

== ENCOUNTER → 2025-02-15 08:28 | Outpatient (BNVA) | payer OTHER, SELFPAY | PROVIDERS: PCP Family Medicine; Visit Provider Orthopaedic Surgery | DX: M17.11 Unilateral primary osteoarthritis, right knee (principal); M25.561 Pain in right knee | CPT/HCPCS: 20610; J2003; J7323 ==